=== PATIENT | female | born 1950 | race Caucasian/White ===

== ENCOUNTER → 2016-07-03 | Outpatient (CLI) | payer MEDICARE, OTHER ==
[2016-07-03 11:45] LABS: ABSOLUTE EOSINOPHILS # (AUTO) 0.1 10^3/uL (0.0-0.6); ABSOLUTE LYMPHOCYTES (AUTO) 1.5 10^3/uL (0.5-4.7); ABSOLUTE MONOCYTES (AUTO) 0.3 10^3/uL (0.1-1.4); ABSOLUTE NEUT (AUTO) 2.8 10^3/uL (1.7-8.2); BASOPHILS % (AUTO) 0.9 % (0-2); HEMATOCRIT 40.2 % (36.0-47.0); HEMOGLOBIN 13.8 g/dL (12.0-15.5); HGB HCT DIFFERENCE 1.2; LYMPHOCYTES % (AUTO) 31.4 % (13-45); MEAN CORPUSCULAR HEMOGLOBIN 30.8 pg (27.0-33.4); MEAN CORPUSCULAR HGB CONC 34.2 g/dL (32.0-36.0); MEAN CORPUSCULAR VOLUME 90 fl (80-97); MONOCYTES % (AUTO) 5.9 % (3-13); RED BLOOD COUNT 4.46 10^6/uL (3.72-5.28); RED CELL DISTRIBUTION WIDTH 13.4 % (11.5-14.0); SEGMENTED NEUTROPHILS % (AUTO) 59.8 % (42-78); WHITE BLOOD COUNT 4.8 10^3/uL (4.0-10.5)
[2016-07-03 12:07] LABS: ALANINE AMINOTRANSFERASE 17 U/L (9-52); ALBUMIN 3.7 g/dL (3.5-5.0); ALKALINE PHOSPHATASE 71 U/L (38-126); ANION GAP 10 (5-19); ASPARTATE AMINO TRANSFERASE 16 U/L (14-36); BILIRUBIN,TOTAL 0.3 mg/dL (0.2-1.3); BLOOD UREA NITROGEN 12 mg/dL (7-20); CALCIUM 9.4 mg/dL (8.4-10.2); CARBON DIOXIDE 30 mmol/L (22-30); CHLORIDE 100 mmol/L (98-107); CHOLESTEROL 197.71 mg/dL (0-200); CREATININE RESULT 0.79 mg/dL (0.52-1.25); Direct HDL 54 mg/dL (>40); GLUCOSE 84 mg/dL (75-110); POTASSIUM 4.8 mmol/L (3.6-5.0); SODIUM 139.5 mmol/L (137-145); TOTAL PROTEIN 5.9 g/dL (6.3-8.2); TRIGLYCERIDES 86 mg/dL (<150)
[2016-07-03 12:11] LABS: ALANINE AMINOTRANSFERASE 18 U/L (9-52); ALBUMIN 3.8 g/dL (3.5-5.0); ALKALINE PHOSPHATASE 71 U/L (38-126); ANION GAP 8 (5-19); ASPARTATE AMINO TRANSFERASE 16 U/L (14-36); BILIRUBIN,TOTAL 0.3 mg/dL (0.2-1.3); BLOOD UREA NITROGEN 12 mg/dL (7-20); CALCIUM 9.2 mg/dL (8.4-10.2); CARBON DIOXIDE 30 mmol/L (22-30); CHLORIDE 100 mmol/L (98-107); CREATINE KINASE 51 U/L (30-135); GLUCOSE 83 mg/dL (75-110); POTASSIUM 4.8 mmol/L (3.6-5.0); SODIUM 138.2 mmol/L (137-145)
[2016-07-03 12:30] LABS: DIRECT LDL 123 mg/dL (<100)
== END ==
LOC: OD 10:54
PROVIDERS: ATTEND Internal Medicine Nephrology
DX: I10 Essential (primary) hypertension (principal); E78.5 Hyperlipidemia, unspecified; G25.81 Restless legs syndrome
CPT/HCPCS: 36415; 80053; 80061; 82306; 82550; 82728; 83540; 83550; 85025

== ENCOUNTER → 2016-07-11 | Outpatient (CLI) | payer MEDICARE, OTHER ==
[2016-07-11 16:34] LABS: ABSOLUTE BASOPHILS # (AUTO) 0.1 10^3/uL (0.0-0.2); ABSOLUTE EOSINOPHILS # (AUTO) 0.1 10^3/uL (0.0-0.6); ABSOLUTE MONOCYTES (AUTO) 0.4 10^3/uL (0.1-1.4); ABSOLUTE NEUT (AUTO) 3.5 10^3/uL (1.7-8.2); EOSINOPHILS % (AUTO) 1.3 % (0-6); HEMATOCRIT 40.9 % (36.0-47.0); HEMOGLOBIN 13.1 g/dL (12.0-15.5); HGB HCT DIFFERENCE -1.6; LYMPHOCYTES % (AUTO) 33.3 % (13-45); MEAN CORPUSCULAR HEMOGLOBIN 29.8 pg (27.0-33.4); MEAN CORPUSCULAR HGB CONC 32.1 g/dL (32.0-36.0); MEAN CORPUSCULAR VOLUME 93 fl (80-97); MONOCYTES % (AUTO) 7.1 % (3-13); RED BLOOD COUNT 4.41 10^6/uL (3.72-5.28); RED CELL DISTRIBUTION WIDTH 13.5 % (11.5-14.0); SEGMENTED NEUTROPHILS % (AUTO) 57.3 % (42-78); WHITE BLOOD COUNT 6.1 10^3/uL (4.0-10.5)
[2016-07-11 16:53] LABS: ANION GAP 11 (5-19); BLOOD UREA NITROGEN 11 mg/dL (7-20); CARBON DIOXIDE 27 mmol/L (22-30); CHLORIDE 99 mmol/L (98-107); CREATININE RESULT 0.79 mg/dL (0.52-1.25); GLUCOSE 86 mg/dL (75-110); POTASSIUM 4.9 mmol/L (3.6-5.0)
[2016-07-11 18:04] LABS: APPEARANCE,URINE CLEAR; BILIRUBIN,URINE NEGATIVE (NEGATIVE); GLUCOSE, URINE NEGATIVE (NEGATIVE); KETONES,URINE NEGATIVE (NEGATIVE); LEUKOCYTE ESTERASE,URINE NEGATIVE (NEGATIVE); NITRITE,URINE NEGATIVE (NEGATIVE); PROTEIN,URINE NEGATIVE (NEGATIVE); URINE SPECIFIC GRAVITY 1.011; UROBILINOGEN,URINE NEGATIVE mg/dL (<2.0)
--- NOTE | 2016-07-11 19:00 | EKG REPORT ---
SEVERITY:- ABNORMAL ECG - SINUS RHYTHM RBBB AND LAFB PROBABLE LVH WITH SECONDARY REPOL ABNRM : Confirmed by: Miguel Cheema MD 11-Jul-2016 18:59:51
== END ==
LOC: OD 16:03
PROVIDERS: ATTEND Orthopaedic Surgery
DX: Z01.810 Encounter for preprocedural cardiovascular examination (principal); Z01.811 Encounter for preprocedural respiratory examination; Z01.818 Encounter for other preprocedural examination; Z79.899 Other long term (current) drug therapy; M19.011 Primary osteoarthritis, right shoulder
CPT/HCPCS: 36415; 71020; 80048; 81001; 85025; 93005; 93010

== ENCOUNTER → 2016-07-16 | Outpatient (CLI) | payer MEDICARE, OTHER ==
--- NOTE | 2016-07-16 16:12 | WOMENS IMAGING REPORT ---
EXAM DESCRIPTION: BILAT SCREENING MAMMO W/CAD COMPLETED DATE/TIME: 07/16/2016 11:52 am REASON FOR STUDY: Z12.31, ROUTINE SCREENING MAMMO Z12.31 ENCNTR SCREEN MAMMOGRAM FOR MALIGNANT NEOP LASM OF DANISH COMPARISON: Multiple since 2008 TECHNIQUE: Standard craniocaudal and mediolateral oblique views of each breast recorded using Outsmarta l acquisition. LIMITATIONS: None. FINDINGS: Findings present which are benign by mammographic criteria. No suspicious masses, calcifi cations or architectural distortion. On the right side, stereotactic biopsy clips are present. On t he left side, patient is post left skin sparing mastectomy and implant removal. Read with the assistance of CAD. .[facility] - R2 Cenova Version 1.3 .[facility] - R2 Cenova Version 1.3 .[facility] - R2 Cenova Version 2.4 .[facility] - R2 Cenova Version 2.4 .[facility] - R2 [facility] Version 9.2 Benign mammographic findings may include one or more of the following: Smooth masses, popcorn/rim/co arse calcifications, asymmetries, post-procedure changes, and lesions with long-standing stability. BREAST DENSITY: b. There are scattered areas of fibroglandular density. BIRAD: 2 BENIGN FINDING(S) RECOMMENDATION: ROUTINE SCREENING COMMENT: PATIENT NOTIFIED BY LETTER. The [employer] recommends an annual screening mammogram for women aged 40 years or over. Each patient will receive a reminder prior to the anniversary date of her mammogram. The [employer] (ACR) has developed recommendations for screening MRI of the breast s in certain patient populations, to be used in conjunction with mammography. Breast MRI surveillanc e may be appropriate for women with more than 20% lifetime risk of developing breast cancer as deter mined by genetic testing, significant family history of the disease, or history of mantle radiation f or Hodgkins Disease. ACR Practice Guidelines 2008. TECHNICAL DOCUMENTATION: FINDING NUMBER: (1) ASSESSMENT: (1) JOB ID: [id number] [employer]- All Rights Reserved
== END ==
LOC: WI 11:33
PROVIDERS: ATTEND Internal Medicine Nephrology
DX: Z12.31 Encounter for screening mammogram for malignant neoplasm of breast (principal); E78.5 Hyperlipidemia, unspecified; I10 Essential (primary) hypertension
CPT/HCPCS: 77067; G0202

== ENCOUNTER 2016-08-12 05:52 | Inpatient (IN) | payer MEDICARE, OTHER ==
[2016-08-01 10:48] LABS: APPEARANCE,URINE CLEAR; BILIRUBIN,URINE NEGATIVE (NEGATIVE); GLUCOSE, URINE NEGATIVE (NEGATIVE); KETONES,URINE NEGATIVE (NEGATIVE); LEUKOCYTE ESTERASE,URINE NEGATIVE (NEGATIVE); NITRITE,URINE NEGATIVE (NEGATIVE); PROTEIN,URINE NEGATIVE (NEGATIVE); URINE SPECIFIC GRAVITY 1.008; UROBILINOGEN,URINE NEGATIVE mg/dL (<2.0)
[2016-08-01 10:53] LABS: HEMATOCRIT 41.6 % (36.0-47.0); HGB HCT DIFFERENCE 0.4; MEAN CORPUSCULAR HEMOGLOBIN 30.6 pg (27.0-33.4); MEAN CORPUSCULAR HGB CONC 33.7 g/dL (32.0-36.0); MEAN CORPUSCULAR VOLUME 91 fl (80-97); RED BLOOD COUNT 4.58 10^6/uL (3.72-5.28); RED CELL DISTRIBUTION WIDTH 13.6 % (11.5-14.0); WHITE BLOOD COUNT 5.6 10^3/uL (4.0-10.5)
[2016-08-01 11:21] LABS: ANION GAP 11 (5-19); BLOOD UREA NITROGEN 8 mg/dL (7-20); CALCIUM 9.7 mg/dL (8.4-10.2); CARBON DIOXIDE 29 mmol/L (22-30); CHLORIDE 96 mmol/L (98-107); CREATININE RESULT 0.75 mg/dL (0.52-1.25); GLUCOSE 87 mg/dL (75-110); POTASSIUM 4.4 mmol/L (3.6-5.0); SODIUM 136.4 mmol/L (137-145)
[~2016-08-12 05:52] MED LIST: BUPIVACAINE INJ/PF LIPOSOME/PF 266 MG/20 ML SDV IJ PRN; CLINDAMYCIN 600 MG/D5W RTU 600 MG/50 ML RTUPB IV PRN; IBUPROFEN 800 MG in NORMAL SALINE 250 ML IV PRN; LANSOPRAZOLE 15 MG TAB.RAP.DR PO PRN; OXYCODONE HCL SR 10 MG TABLET PO PRN; SCOPOLAMINE HYDROBROMIDE 1.5 MG PATCH.TD72 TD PRN
[2016-08-12] MEDS ORDERED: VANCOMYCIN HCL 1,000 MG in DEXTROSE 5%-WATER 250 ML IV PRN (08:29)
[2016-08-12] MEDS ORDERED: SUCCINYLCHOLINE CHLORIDE INJ 200 MG/10 ML VIAL ONE (09:18)
[2016-08-12] MEDS ORDERED: ONDANSETRON HCL INJ/PF 4 MG/2 ML SDV ONE (09:18)
[2016-08-12] MEDS ORDERED: LIDOCAINE 2% INJ-PF (20 MG/ML) 10 ML AMPUL ONE (09:18)
[2016-08-12] MEDS ORDERED: DEXAMETHASONE SOD PHOSPHATE INJ 4 MG/1 ML VIAL ONE (09:18)
[2016-08-12] MEDS ORDERED: GLYCOPYRROLATE INJ 0.4 MG/2 ML VIAL ONE (09:18)
[2016-08-12] MEDS ORDERED: METOCLOPRAMIDE HCL INJ/PF 10 MG/2 ML SDV ONE (09:18)
[2016-08-12] MEDS ORDERED: BUPIVACAINE INJ/PF LIPOSOME/PF 266 MG/20 ML SDV ONE (09:21)
[2016-08-12] MEDS ORDERED: EPHEDRINE SULFATE INJ 50 MG/1 ML AMPULE ONE (09:44)
[2016-08-12] MEDS ORDERED: MIDAZOLAM 2 MG/2 ML INJ ONE (09:44)
[2016-08-12] MEDS ORDERED: FENTANYL CITRATE INJ/PF 250 MCG/5 ML AMPULE ONE (09:44)
[2016-08-12] MEDS ORDERED: DEXMEDETOMIDINE INJ 80 MCG/20 ML VIAL IV ONE (09:45)
[2016-08-12] MEDS ORDERED: PROPOFOL INJ 200 MG/20 ML VIAL IV ONE (09:45)
[2016-08-12] MEDS ORDERED: TRANEXAMIC ACID INJ/PF 1,000 MG/10 ML SDV IV ONE (10:29)
[2016-08-12] MEDS ORDERED: MEPERIDINE HCL/PF INJ 25 MG/1 ML DISP.SYRIN IV PRN (11:15)
[2016-08-12] MEDS ORDERED: MORPHINE SULFATE 10 MG/ML INJ IV PRN (11:15)
[2016-08-12] MEDS ORDERED: PROMETHAZINE HCL INJ 25 MG/1 ML VIAL IV PRN ×2 (11:15)
[2016-08-12] MEDS ORDERED: FENTANYL CITRATE INJ/PF 100 MCG/2 ML AMPUL IV PRN ×3 (11:15)
[2016-08-12] MEDS ORDERED: DIPHENHYDRAMINE HCL 50 MG/ML VIAL IV PRN (11:15)
[2016-08-12] MEDS ORDERED: OXYCODONE-ACETAMINOPHEN 5-325 MG TABLET PO PRN ×2 (11:15)
--- NOTE | 2016-08-12 12:00 | Operative Report ---
Operative Report DATE OF SURGERY: 08/12/16 PREOPERATIVE DIAGNOSIS: Right shoulder arthritis OPERATION: Right shoulder arthroplasty SURGEON: RUDDY HEART ANESTHESIA: GA TISSUE REMOVED OR ALTERED: Bone to pathology ESTIMATED BLOOD LOSS: 100 PROCEDURE: Implants used: Striker reunion 40 mm glenoid. Striker reunion size 11 humeral stem Striker reunion single radius humeral head size 44 with a 16 mm thickness. Procedure: With the patient beachchair position. The operating table the right upper extremity and forequarter were prepped and draped in a sterile fashion. A standard deltopectoral approach the shoulders taken. The cephalic vein is retracted laterally. The underlying pack insertion was taken down proximally 1 cm. The biceps tendon is tract proximally. The subscap was taken off the lesser tuberosity and tagged with a suture. Capsular rent is then continued proximally along the biceps tendon. The underlying shoulder joint is exposed. The proximal humeral resection was performed off a 11 mm reamer with 30 of retroversion. The glenoid is now exposed. Is prepared for 40 mm glenoid. The labrum was debrided. The chondral surfaces freshened using a cylindrical reamer. 4 peg holes are made with the appropriate jig. Subsequently a 40 mm polyethylene glenoid is demented into the glenoid. Following adequate curing the cement attention is now turned to the humerus. The humerus was prepared using a series of broaches until a #11 broach is seated. A trial reduction was performed with a 44 mm head, 16 mm thickness. This provides satisfactory soft tissue tension. The humeral trial was removed. The formal implant is then impacted into the humeral canal. The single radius humeral head is impacted into the trunnion. The shoulders reduced. It's irrigated. The capsule was repaired using interrupted fiber wire. The cutaneous tissue reapproximation up to Vicryl and skin kaycee. A sterile dressing and a shoulder mobilizer applied and the patient's returned to PACU in satisfactory condition.
[2016-08-12] MEDS ORDERED: FENTANYL CITRATE INJ/PF 100 MCG/2 ML AMPUL ONE (12:38)
[2016-08-12] MEDS ORDERED: RINGERS SOLUTION,LACTATED 1,000 ML IV PRN (13:28)
[2016-08-12] MEDS ORDERED: ONDANSETRON 4 MG TAB.RAPDIS PO PRN (13:29)
[2016-08-12] MEDS ORDERED: (PENDING PHARMACY ID) (Albuterol Sulfate [Proair Respiclick] 90 MCG) IH PRN (13:48)
[2016-08-12] MEDS ORDERED: ALBUTEROL SULFATE 0.083% NEB 2.5 MG/3 ML AMPUL NEB PRN (13:48)
[2016-08-12] MEDS ORDERED: BUTALB/ACETAMINOPHEN/CAFFEINE 1 TAB EACH PO PRN (13:48)
[2016-08-12] MEDS: OXYCODONE HCL IR 5 MG TABLET PO PRN ×2 (14:24→22:35)
[2016-08-12] MEDS ORDERED: INFLUENZA ADLT QUAD (36MOS+) 2016-17 VAC 0.5 ML SYR IM PRN (14:58)
[2016-08-12] MEDS ORDERED: ROPINIROLE HCL 2 MG TABLET PO SCH (18:00)
[2016-08-12] MEDS ORDERED: (PENDING PHARMACY ID) (Desloratadine [Clarinex] 5 MG) PO SCH (18:00)
[2016-08-12] MEDS ORDERED: (PENDING PHARMACY ID) (Rabeprazole Sodium [Aciphex] 20 MG) PO SCH (18:00)
[2016-08-12] MEDS ORDERED: COLESTIPOL PO SCH (18:00)
[2016-08-12] MEDS ORDERED: LORATADINE 10 MG TABLET PO SCH (18:00)
[2016-08-12] MEDS ORDERED: CITALOPRAM HYDROBROMIDE 20 MG TABLET PO SCH (18:00)
[2016-08-12] MEDS: HYDROXYCHLOROQUINE SULFATE 200 MG TABLET PO SCH (18:08)
[2016-08-12] MEDS: LANSOPRAZOLE 30 MG TAB.RAP.DR PO SCH (18:09)
[2016-08-12] MEDS: MORPHINE SULFATE 10 MG/ML INJ IV PRN (19:55)
[2016-08-12] MEDS ORDERED: CYCLOBENZAPRINE HCL 10 MG TABLET PO SCH (22:00)
[2016-08-12] MEDS ORDERED: (PENDING PHARMACY ID) (Cyclobenzaprine Hcl [Flexeril 5 Mg Tablet] 5 MG) PO SCH (22:00)
[2016-08-12] MEDS ORDERED: GABAPENTIN 300 MG CAPSULE PO SCH (22:00)
[2016-08-12] MEDS ORDERED: MONTELUKAST SODIUM 10 MG TABLET PO SCH (22:00)
[2016-08-12] MEDS ORDERED: TEMAZEPAM 15 MG CAPSULE PO SCH (22:00)
[2016-08-12] MEDS: FLUTICASONE/SALMETEROL DISKUS 500-50 MCG/DOSE IH SCH (22:22)
[2016-08-12] MEDS: FLUTICASONE NASAL SPRAY 50 MCG/SPRY 120 SPRAY/16 GM NASL SCH (22:22)
[2016-08-12] MEDS ORDERED: VANCOMYCIN HCL 1,000 MG in DEXTROSE 5%-WATER 250 ML IV ONE (23:00)
[2016-08-13] MEDS: MORPHINE SULFATE 10 MG/ML INJ IV PRN ×2 (02:29→07:41)
[2016-08-13] MEDS: OXYCODONE HCL IR 5 MG TABLET PO PRN ×2 (05:09→11:33)
[2016-08-13 06:36] LABS: HEMATOCRIT 32.8 % (36.0-47.0); HEMOGLOBIN 11.1 g/dL (12.0-15.5); HGB HCT DIFFERENCE 0.5; MEAN CORPUSCULAR HEMOGLOBIN 30.7 pg (27.0-33.4); MEAN CORPUSCULAR HGB CONC 33.9 g/dL (32.0-36.0); MEAN CORPUSCULAR VOLUME 91 fl (80-97); RED BLOOD COUNT 3.62 10^6/uL (3.72-5.28); RED CELL DISTRIBUTION WIDTH 13.4 % (11.5-14.0); WHITE BLOOD COUNT 8.2 10^3/uL (4.0-10.5)
[2016-08-13 07:00] LABS: ANION GAP 6 (5-19); BLOOD UREA NITROGEN 10 mg/dL (7-20); CALCIUM 8.9 mg/dL (8.4-10.2); CARBON DIOXIDE 26 mmol/L (22-30); CHLORIDE 96 mmol/L (98-107); CREATININE RESULT 0.64 mg/dL (0.52-1.25); GLUCOSE 100 mg/dL (75-110); POTASSIUM 4.3 mmol/L (3.6-5.0); SODIUM 128.1 mmol/L (137-145)
--- NOTE | 2016-08-13 07:02 | PDOC DISCHARGE SUMMARY ---
General - Admit/Disc Date/PCP Admission Date/Primary Care Provider: 08/12/16 08:01 SMOOTH GARCIA MD Discharge Date: 08/13/16 - Discharge Diagnosis (1) Arthritis of right shoulder region Summary: Patient is 66-year-old white female who presents with progressive right shoulder pain and dysfunction secondary shoulder arthritis. - Additional Information Resuscitation Status: Full Code Home Medications: Albuterol Sulfate [Albuterol Sulfate 2.5mg/3 mL] 2.5 mg IH Q6 PRN 07/30/16 Albuterol Sulfate [Proair Respiclick] 90 mcg IH ASDIR PRN 07/30/16 Butalb/Acetaminophen/Caffeine [Fioricet (50-325-40 mg) Tablet] 1 tab PO Q12 PRN 07/30/16 Cholecalciferol (Vitamin D3) [Vitamin D3 2000 unit Tablet] 2,000 unit PO QAM 01/06 Citalopram Hydrobromide [Celexa 20 mg Tablet] 20 mg PO QPM 07/30/16 Colestipol HCl [Colestid 5 gm Packet] 15 gm PO BID 07/30/16 Cyclobenzaprine HCl [Flexeril 5 mg Tablet] 5 mg PO QHS 07/30/16 Desloratadine [Clarinex] 5 mg PO QPM 07/30/16 Ezetimibe/Simvastatin [Vytorin 10-40 Mg Tablet] 1 each PO QAM 07/30/16 Ferrous Sulfate 65 mg PO QAM 07/30/16 Fluticasone Propionate [Flonase Nasal [place] 50 Mcg/[place] 16 gm] 1 spray NASL Q12 07/30/16 Fluticasone/Salmeterol [Advair 500-50 Diskus 28 Dose] 1 inh IH Q12H 07/30/16 Gabapentin [Neurontin] 600 mg PO QHS 07/30/16 Hydrocodone/Acetaminophen [Hydrocodon-Acetaminoph 7.5-325] 1 each PO Q6 PRN 01/06 Hydroxychloroquine Sulfate [Plaquenil 200 mg Tablet] 200 mg PO BID 07/30/16 Ibandronate Sodium [Boniva] 150 mg PO ASDIR 07/30/16 Lidocaine [Lidoderm 5% (700 mg) Transdermal Patch] 1 patch TP QPM PRN 07/30/16 Metoprolol Succinate [Toprol Xl] 50 - 100 mg PO QAM 07/30/16 Montelukast Sodium [Singulair 10 mg Tablet] 10 mg PO QPM 07/30/16 Rabeprazole Sodium [Aciphex] 20 mg PO BID 07/30/16 Ropinirole HCl [Requip 2 Mg Tablet] 2 mg PO QPM 07/30/16 Temazepam 15 mg PO QHS 07/30/16 History of Present Illness History of Present Illness: MIREAY TORRES is a 66 year old female with progressive right shoulder pain and dysfunction secondary osteoarthritis. Hospital Course Hospital Course: Patient's admitted through the operating room where she undergoes uncomplicated right shoulder arthroplasty. She was returned to floor in satisfactory condition. Pain control is reasonable. Dressing remains clean dry and intact. Neurovascular examination the upper extremities intact. Physical Exam Vital Signs: Temp Pulse Resp BP Pulse Ox 37.2 C 73 17 133/53 H 94 08/13/16 05:20 08/13/16 05:20 08/13/16 05:20 08/13/16 05:20 08/13/16 05:20 Intake & Output 08/12/16 08/13/16 08/14/16 06:59 06:59 06:59 Intake Total 1720 Output Total 750 Balance 970 General appearance: PRESENT: no acute distress Head exam: PRESENT: normocephalic Eye exam: PRESENT: EOMI Respiratory exam: PRESENT: unlabored Cardiovascular exam: PRESENT: RRR Pulses: PRESENT: +1 pedal pulses bilateral Extremities exam: PRESENT: other Neurological exam: PRESENT: alert - Right shoulder dressing clean dry and intact. Shoulder mobilizer in place. Distal neurovascular examination is intact., awake, oriented to person, oriented to place, oriented to time, oriented to situation, CN II-XII grossly intact. ABSENT: motor sensory deficit Results Laboratory Results: 08/13/16 05:50 08/12/16 08/13/16 08:37 05:50 WBC 8.2 RBC 3.62 L Hgb 11.1 L Hct 32.8 L MCV 91 MCH 30.7 MCHC 33.9 RDW 13.4 Plt Count 140 L Blood Type O POSITIVE Antibody Screen NEGATIVE Status: Imported from PACS Qualifiers PATEINT BEING DISCHARGED WITH ANY OF THE FOLLOWING DIAGNOSIS?: No VTE patient discharged on overlapping Therapy?: No Reason(s) for not prescribing Overlap Therapy:: Not indicated
[2016-08-13] MEDS: LANSOPRAZOLE 30 MG TAB.RAP.DR PO SCH (07:39)
[2016-08-13] MEDS ORDERED: METOPROLOL SUCCINATE 50 MG TAB.SR.24H PO SCH (08:00)
[2016-08-13] MEDS ORDERED: EZETIMIBE PO SCH (08:00)
[2016-08-13] MEDS ORDERED: SIMVASTATIN PO SCH (08:00)
[2016-08-13] MEDS ORDERED: FERROUS SULFATE 65 MG PO SCH (08:00)
[2016-08-13] MEDS ORDERED: (PENDING PHARMACY ID) (Cholecalciferol (Vitamin D3) [Vitamin D3 2000 Unit Tablet] 2,000 UN PO SCH (08:00)
[2016-08-13] MEDS: HYDROXYCHLOROQUINE SULFATE 200 MG TABLET PO SCH (09:02)
[2016-08-13] MEDS: FLUTICASONE/SALMETEROL DISKUS 500-50 MCG/DOSE IH SCH (09:03)
[2016-08-13] MEDS: FLUTICASONE NASAL SPRAY 50 MCG/SPRY 120 SPRAY/16 GM NASL SCH (09:03)
[2016-08-13] MEDS ORDERED: FERROUS SULFATE 325 MG TABLET PO SCH (10:00)
[2016-08-13] MEDS ORDERED: CHOLECALCIFEROL (D3) 1,000 UNIT TABLET PO SCH (10:00)
[2016-08-13 11:53] VITALS: BP 140/59
[2016-08-13] MEDS ORDERED: EZETIMIBE 10 MG TABLET PO SCH (22:00)
[2016-08-13] MEDS ORDERED: SIMVASTATIN 40 MG TABLET PO SCH (22:00)
== END 2016-08-13 11:59 | disposition home or self-care (01) | DRG 483 ==
LOC: INOR 08:01 → 4S 13:25
PROVIDERS: ADMIT Orthopaedic Surgery; ATTEND Orthopaedic Surgery
PROC: 0RRJ0JZ Replacement of Right Shoulder Joint with Synthetic Substitute, Open Approach (ICD-10-PCS; principal; 2016-08-12 10:00)
DX: M19.011 Primary osteoarthritis, right shoulder (principal); K58.9 Irritable bowel syndrome, unspecified; G47.00 Insomnia, unspecified; J45.909 Unspecified asthma, uncomplicated; F32.9 Major depressive disorder, single episode, unspecified; G43.909 Migraine, unspecified, not intractable, without status migrainosus; M48.00 Spinal stenosis, site unspecified; Z79.899 Other long term (current) drug therapy; Z96.649 Presence of unspecified artificial hip joint; Z90.12 Acquired absence of left breast and nipple; Z88.0 Allergy status to penicillin; Z83.3 Family history of diabetes mellitus; Z80.9 Family history of malignant neoplasm, unspecified; Z82.49 Family history of ischemic heart disease and other diseases of the circulatory system
CPT/HCPCS: 1630; 36415; 80048; 81001; 85027; 86850; 86900; 86901; 88304; 88311; 90686; C1776; C9290; J0330; J1100; J1741; J2250; J2270; J2405; J2704; J2765; J3010; J3370; J3490; J7050; J7060; L3650

== ENCOUNTER 2016-09-02 07:05 | Inpatient (IN) | payer MEDICARE, OTHER ==
[2016-09-02 07:20] LABS: ABSOLUTE BASOPHILS # (AUTO) 0.1 10^3/uL (0.0-0.2); ABSOLUTE LYMPHOCYTES (AUTO) 2.5 10^3/uL (0.5-4.7); ABSOLUTE MONOCYTES (AUTO) 1.7 10^3/uL (0.1-1.4); ABSOLUTE NEUT (AUTO) 12.7 10^3/uL (1.7-8.2); BASOPHILS % (AUTO) 0.6 % (0-2); EOSINOPHILS % (AUTO) 0.1 % (0-6); HEMATOCRIT 35.7 % (36.0-47.0); HEMOGLOBIN 11.6 g/dL (12.0-15.5); HGB HCT DIFFERENCE -0.9; LYMPHOCYTES % (AUTO) 14.6 % (13-45); MEAN CORPUSCULAR HEMOGLOBIN 30.2 pg (27.0-33.4); MEAN CORPUSCULAR HGB CONC 32.6 g/dL (32.0-36.0); MEAN CORPUSCULAR VOLUME 93 fl (80-97); MONOCYTES % (AUTO) 10.1 % (3-13); RED BLOOD COUNT 3.84 10^6/uL (3.72-5.28); RED CELL DISTRIBUTION WIDTH 13.8 % (11.5-14.0); SEGMENTED NEUTROPHILS % (AUTO) 74.6 % (42-78)
[2016-09-02 07:27] LABS: PROTHROMBIN TIME 12.2 SEC (11.4-15.4)
[2016-09-02 07:28] LABS: BLOOD UREA NITROGEN 8 mg/dL (7-20); CALCIUM 9.4 mg/dL (8.4-10.2); CREATININE RESULT 0.71 mg/dL (0.52-1.25); GLUCOSE 288 mg/dL (75-110)
[2016-09-02 07:29] LABS: ALANINE AMINOTRANSFERASE 30 U/L (9-52); ALBUMIN 3.6 g/dL (3.5-5.0); ALKALINE PHOSPHATASE 143 U/L (38-126); ANION GAP 14 (5-19); ASPARTATE AMINO TRANSFERASE 27 U/L (14-36); BILIRUBIN,TOTAL 0.4 mg/dL (0.2-1.3); CARBON DIOXIDE 21 mmol/L (22-30); CHLORIDE 102 mmol/L (98-107); CREATINE KINASE 134 U/L (30-135); POTASSIUM 4.3 mmol/L (3.6-5.0); SODIUM 136.8 mmol/L (137-145)
[2016-09-02 07:40] LABS: CREATINE KINASE MB 6.2 ng/mL (<4.55)
[2016-09-02 07:41] LABS: TROPONIN I 0.294 ng/mL
[2016-09-02 07:44] LABS: ARTERIAL BLOOD BASE EXCESS -6.2 mmol/L; ARTERIAL BLOOD O2 SATURATION 97.5 % (94-98)
[2016-09-02] MEDS ORDERED: FUROSEMIDE INJ/PF 40 MG/4 ML SDV IV ONE (08:27)
--- NOTE | 2016-09-02 08:55 | ER Document Report ---
ED General - General Chief Complaint: Shortness Of Breath Stated Complaint: DIFFICULTY BREATHING Time seen by provider: 08:00 Mode of Arrival: Medic Information source: Patient, Emergency Med Personnel TRAVEL OUTSIDE OF THE [place] IN LAST 30 DAYS: No - HPI Associated symptoms: Body/muscle aches Notes: Patient presents with report of cough congestion for the last 5 days with a temperature maximum 99 with progressive dyspnea and wheezing that did not respond to her home nebulizer treatments. Patient reports cough is productive of yellowish phlegm. Patient reports orthopnea and dyspnea on exertion. She is not on home oxygen. Report of right shoulder surgery 3 weeks ago without complication. EMS picked up the patient and found her to have an O2 sat 60s, and she responded to DuoNeb and albuterol nebs and CPAP and IV magnesium. O2 sat 100% after treatments, and oxygen level weaned down following this. Patient does have a history of COPD and reports previous steroids in the past. - Related Data Allergies/Adverse Reactions: Penicillins Adverse Reaction (Verified 09/02/16 08:22) Lethargy Past Medical History - General Information source: Patient - Social History Smoking Status: Unknown if Ever Smoked Cigarette use (# per day): Yes - patient just quit smoking one week ago Chew tobacco use (# tins/day): No Smoking Education Provided: Yes Frequency of alcohol use: None Drug Abuse: None Lives with: Alone Family History: None Patient has suicidal ideation: No Patient has homicidal ideation: No - Past Medical History Cardiac Medical History: Reports: Hx Hypercholesterolemia - takes med, Hx Hypertension - takes med Denies: Hx Atrial Fibrillation, Hx Congestive Heart Failure, Hx Coronary Artery Disease, Hx Heart Attack, Hx Peripheral Vascular Disease, Hx Pulmonary Embolism, Hx Heart Murmur Pulmonary Medical History: Reports: Hx Asthma, Hx Bronchitis - yearly, Hx COPD, Hx Pneumonia - several times, Hx Sleep Apnea - uses CPAP Denies: Hx Respiratory Failure, Hx Tuberculosis Neurological Medical History: Denies: Hx Cerebrovascular Accident, Hx Seizures Endocrine Medical History: Denies: Hx Graves' Disease, Hx Hyperthyroidism, Hx Hypothyroidism Renal/ Medical History: Reports: Hx Ovarian Cysts. Denies: Hx End Stage Renal Disease, Hx Kidney Stones, Hx Peritoneal Dialysis, Hx Pelvic Inflammatory Disease Malignancy Medical History: Reports: Hx Breast Cancer - left breast/Mastectomy. Denies: Hx Cervical Cancer, Hx Leukemia, Hx Lung Cancer, Hx Ovarian Cancer GI Medical History: Reports: Hx Gastroesophageal Reflux Disease - takes med, Hx Irritable Bowel, Hx Ulcer. Denies: Hx Crohn's Disease, Hx Hiatal Hernia, Hx Liver Failure Musculoskeltal Medical History: Reports Hx Arthritis, Reports Hx Fibromyalgia, Denies Hx Multiple Sclerosis, Denies Hx Muscular Dystrophy Psychiatric Medical History: Reports: Hx Depression - mild Denies: Hx Bipolar Disorder, Hx Dementia, Hx Post Traumatic Stress Disorder, Hx Schizophrenia Traumatic Medical History: Reports: Hx Fractures - left shoulder, right elbow x2 , left wrist, toes Infectious Medical History: Denies: Hx HIV Past Surgical History: Reports: Hx Appendectomy, Hx Cholecystectomy, Hx Hysterectomy, Hx Mastectomy - left, Hx Tonsillectomy, Hx Tubal Ligation. Denies : Hx Bowel Surgery, Hx Section, Hx Colostomy, Hx Coronary Artery Bypass Graft, Hx Gastric Bypass Surgery, Hx Herniorrhaphy, Hx Pacemaker - Immunizations Hx Diphtheria, Pertussis, Tetanus Vaccination: Yes Hx Pneumococcal Vaccination: 07/24/04 Review of Systems - Review of Systems Notes: REVIEW OF SYSTEMS: CONSTITUTIONAL : Questions fevers but reports only temp 99., EENT: Denies eye, ear, throat, or mouth pain or symptoms. Minor nasal congestion. Denies throat, tongue, or mouth swelling or difficulty swallowing. CARDIOVASCULAR: Patient reports pleuritic chest pain. Denies palpitations or racing or irregular heart beat. Denies ankle edema. RESPIRATORY: Patient reports cough productive of some yellowish phlegm with associated dyspnea, orthopnea and wheezing. GASTROINTESTINAL: Denies abdominal pain or distention. Denies nausea, vomiting , or diarrhea. Denies blood in vomitus, stools, or per rectum. Denies black, tarry stools. Denies constipation. GENITOURINARY: Denies difficulty urinating, painful urination, burning, frequency, blood in urine, or discharge. FEMALE GENITOURINARY: Denies vaginal bleeding, heavy or abnormal periods, irregular periods. Denies vaginal discharge or odor. MUSCULOSKELETAL: Denies back or neck pain or stiffness. Denies joint pain or swelling. No significant pain or swelling in the right upper extremity from her shoulder surgery 3 weeks ago. SKIN: Denies rash, lesions or sores. HEMATOLOGIC : Denies easy bruising or bleeding. LYMPHATIC: Denies swollen, enlarged glands. NEUROLOGICAL: Denies confusion or altered mental status. Denies passing out or loss of consciousness. Denies dizziness or lightheadedness. Denies headache. Denies weakness or paralysis or loss of use of either side. Denies problems with gait or speech. Denies sensory loss, numbness, or tingling. Denies seizures. PSYCHIATRIC: Denies anxiety or stress. Denies depression, suicidal ideation, or homicidal ideation. ALL OTHER SYSTEMS REVIEWED AND NEGATIVE. Dictation was performed using i[employer] voice recognition software -: Yes All other systems reviewed and negative Physical Exam - Vital signs Vitals: Pulse Ox 96 09/02/16 07:06 - Notes Notes: PHYSICAL EXAMINATION: GENERAL: Obvious respiratory distress HEAD: Atraumatic, normocephalic. EYES: Pupils equal round and reactive to light, extraocular movements intact, conjunctiva are normal. ENT: Nares patent, oropharynx clear without exudates. Moist mucous membranes. NECK: Normal range of motion, supple without lymphadenopathy. JVD is noted, but the patient is on CPAP at the time. LUNGS: Coarse breath sounds with scant Rales and diminished breath sounds throughout both bases. Some wheezes noted. HEART: Tachycardic rate of 153 with a 1/6 systolic ejection murmur best auscultated over the apex. ABDOMEN: Soft, nontender, nondistended abdomen. No guarding, no rebound. No masses appreciated. Female : deferred Musculoskeletal: Normal range of motion, no pitting or edema. No cyanosis. Patient has surgical site right upper extremity shoulder which appears to be healing well and there is no distal edema or swelling or other abnormality noted. NEUROLOGICAL: Cranial nerves grossly intact. Normal speech, normal gait. Normal sensory, motor exams PSYCH: Normal mood, normal affect. SKIN: Warm, Dry, normal turgor, no rashes or lesions noted. Course - Re-evaluation Re-evalutation: 09/02/16 09:01 Repeat evaluation, patient still reports mild chest pain only with cough. D- dimer is elevated, and BNP level is elevated. No obvious STEMI noted on EKG. There are elevations of cardiac enzymes. CTA chest is ordered and 40 mg of IV Lasix. Patient's tachycardia gradually resolved down to heart rate of 116. 09/02/16 09:05 CTA of the chest is negative for PE, but does show a right-sided pneumonia. Patient had adequate diuresis. After blood cultures, patient is given IV Levaquin. Discussion was undertaken with Dr. Brown, and he agreed to see and evaluate the patient further for possible admission. 09/02/16 14:17 Patient had a recurrence of some dyspnea. On repeat exam there was mild wheezing. She still reports the right chest pain associated with cough. She was given additional DuoNeb treatment. Patient has been taking regular hydrocodone 7.5 mg tablets for her postsurgical pain from her right shoulder replacement. She is given 4 mg of morphine. Repeat EKG as interpreted by Dr. Colon showed sinus tachycardia heart rate of 107. There was no gross evidence for acute WI or ischemia noted. - Vital Signs Vital signs: Temp Pulse Resp BP Pulse Ox 98.1 F 15 110/64 97 09/02/16 13:50 09/02/16 15:00 09/02/16 13:00 09/02/16 15:00 - Laboratory Result Diagrams: 09/02/16 07:08 09/02/16 07:08 Laboratory results interpreted by me: 09/02/16 09/02/16 09/02/16 07:08 07:08 07:08 WBC 17.0 H Hgb 11.6 L Hct 35.7 L Absolute Neutrophils 12.7 H Absolute Monocytes 1.7 H D-Dimer Carbonic Acid ABG pH ABG pCO2 ABG pO2 Sodium 136.8 L Carbon Dioxide 21 L Glucose 288 H Lactic Acid Alkaline Phosphatase 143 H CK-MB (CK-2) 6.20 H NT-Pro-B Natriuret Pep 2920 H Total Protein 6.0 L Urine Protein Urine Glucose (UA) Urine Blood 09/02/16 09/02/16 09/02/16 07:08 07:08 07:23 WBC Hgb Hct Absolute Neutrophils Absolute Monocytes D-Dimer 1.91 H Carbonic Acid 1.61 H ABG pH 7.23 L ABG pCO2 53.4 H ABG pO2 117.5 H Sodium Carbon Dioxide Glucose Lactic Acid 3.6 H Alkaline Phosphatase CK-MB (CK-2) NT-Pro-B Natriuret Pep Total Protein Urine Protein Urine Glucose (UA) Urine Blood 09/02/16 09:30 WBC Hgb Hct Absolute Neutrophils Absolute Monocytes D-Dimer Carbonic Acid ABG pH ABG pCO2 ABG pO2 Sodium Carbon Dioxide Glucose Lactic Acid Alkaline Phosphatase CK-MB (CK-2) NT-Pro-B Natriuret Pep Total Protein Urine Protein 100 H Urine Glucose (UA) 50 H Urine Blood SMALL H - EKG Interpretation by Me EKG shows normal: Sinus rhythm Rate: Tachycardia When compared to previous EKG there are: Changes noted Additional EKG results interpreted by me: 09/02/16 09:04 EKG as interpreted by me showed sinus tachycardia heart rate of 153 with right bundle branch block and left anterior fascicular block and secondary rate related changes. There is no gross evidence for acute WI or obvious ischemia. There is no other significant change versus previous EKG from 07/11/16 which showed a sinus rhythm of 51. Critical Care Note - Critical Care Note Total time excluding time spent on procedures (mins): 47 Discharge - Discharge Clinical Impression: COPD with acute exacerbation, Hypoxia Pneumonia Qualifiers: Pneumonia type: due to unspecified organism Laterality: right Lung location: unspecified part of lung Qualified Code(s): J18.9 - Pneumonia, unspecified organism Clinical Impression: (Ruled Out): Asphyxiation by strangulation Condition: Fair Disposition: ADMITTED INPATIENT Admitting Provider: Hospitalist Unit Admitted: Telemetry Referrals: SMOOTH GARCIA MD [Primary Care Provider] - Follow up as needed
[2016-09-02] MEDS ORDERED: IPRATROPIUM/ALBUTEROL 0.5-2.5 MG/3 ML AMPUL NEB ONE (09:28)
[2016-09-02 09:55] LABS: APPEARANCE,URINE CLOUDY; BILIRUBIN,URINE NEGATIVE (NEGATIVE); GLUCOSE, URINE 50 mg/dL (NEGATIVE); KETONES,URINE NEGATIVE (NEGATIVE); LEUKOCYTE ESTERASE,URINE NEGATIVE (NEGATIVE); NITRITE,URINE NEGATIVE (NEGATIVE); PROTEIN,URINE 100 mg/dL (NEGATIVE); URINE SPECIFIC GRAVITY 1.051; UROBILINOGEN,URINE NEGATIVE mg/dL (<2.0)
[2016-09-02] MEDS ORDERED: LEVOFLOXACIN 750 MG/D5W RTU 150 ML IV ONE (10:11)
--- NOTE | 2016-09-02 13:46 | EKG REPORT ---
SEVERITY:- ABNORMAL ECG - SINUS TACHYCARDIA RBBB AND LAFB PROBABLE LVH WITH SECONDARY REPOL ABNRM : Confirmed by: Darrell Mantilla 02-Sep-2016 13:46:29
[2016-09-02] MEDS ORDERED: MORPHINE SULFATE 10 MG/ML INJ IV ONE (14:12)
[2016-09-02] MEDS ORDERED: LEVALBUTEROL HCL NEB 1.25 MG/3 ML AMPUL NEB PRN (14:33)
[2016-09-02] MEDS ORDERED: METHYLPREDNISOLONE INJ 40 MG/1 ML SDV IV SCH (14:45)
--- NOTE | 2016-09-02 15:06 | PDOC H&P ---
History of Present Illness Admission Date/PCP: SMOOTH GARCIA MD Patient complains of: Shortness of breath History of Present Illness: MIREYA TORRES is a 66 year old female, with a COPD, obstructive sleep apnea, hypertension presents to the hospital because of shortness of breath of 5 days' duration. Patient had a shoulder surgery 3 weeks ago in the hospital. Patient reportedly that she was put to sleep during the procedure. 5 days ago she started to develop cough and shortness of breath, with associated wheezing, sweating, and low-grade fever. There is pleurisy on the right. There is no nausea or vomiting. She had an episode of diarrhea. Cough is productive of greenish phlegm. She is taking her inhalers according partial relief of symptoms and earlier today the symptoms got worse. Patient denies any dizziness lightheadedness or syncope. No left-sided chest pain. In the emergency room troponin was elevated, CT scan of the chest revealed infiltrate on the right, WBC was elevated. Patient was given intravenous fluids, antibiotics and was referred for admission. No history of coronary artery disease. Past Medical History Cardiac Medical History: Reports: Hyperlipidema - takes med, Hypertension - takes med Denies: Atrial Fibrillation, Congestive Heart Failure, Coronary Artery Disease, Myocardial Infarction, Peripheral Vascular Disease, Pulmonary Embolism , Heart Murmur Pulmonary Medical History: Reports: Asthma, Bronchitis - yearly, Chronic Obstructive Pulmonary Disease (COPD), Pneumonia - several times, Sleep Apnea - uses CPAP Denies: Respiratory Failure, Tuberculosis Neurological Medical History: Reports: Migraine Denies: Seizures Endocrine Medical History: Denies: Hyperthyroidism, Hypothyroidism Renal/ Medical History: Denies: End Stage Renal Disease Malignancy Medical History: Reports: Breast Cancer - left breast/Mastectomy Denies: Cervical Cancer, Leukemia, Lung Cancer, Ovarian Cancer GI Medical History: Reports: Gastroesophageal Reflux Disease - takes med, Other - Irritable bowel syndrome Denies: Crohn's Disease, Hiatal Hernia Musculoskeltal Medical History: Reports: Arthritis, Fibromyalgia Psychiatric Medical History: Reports: Depression - mild Denies: Bipolar Disorder, Dementia, Post Traumatic Stress Disorder Hematology: Reports: Anemia - blood transfusion with back surgery Denies: Hemophilia, Sickle Cell Disease Infectious Medical History: Denies: HIV Past Surgical History Past Surgical History: Reports: Appendectomy, Cholecystectomy, Hysterectomy, Mastectomy - left, Orthopedic Surgery - Recent right shoulder surgery, Tonsillectomy, Tubal Ligation Denies: Amputation, Section, Colostomy, Coronary Artery Bypass Graft , Gastric Bypass Surgery, Herniorrhaphy, Pacemaker Social History Information Source: Patient Lives with: Alone Smoking Status: Current Every Day Smoker Frequency of Alcohol Use: Occasional Hx Recreational Drug Use: No Drugs: None Hx Prescription Drug Abuse: No Family History Family History: CAD, DM, Malignancy Parental Family History Reviewed: Yes Children Family History Reviewed: Yes Sibling(s) Family History Reviewed.: Yes Medication/Allergy Home Medications: Albuterol Sulfate [Albuterol Sulfate 2.5mg/3 mL] 2.5 mg IH Q6 PRN 07/30/16 Albuterol Sulfate [Proair Respiclick] 90 mcg IH ASDIR PRN 07/30/16 Butalb/Acetaminophen/Caffeine [Fioricet (50-325-40 mg) Tablet] 1 tab PO Q12 PRN 07/30/16 Cholecalciferol (Vitamin D3) [Vitamin D3 2000 unit Tablet] 2,000 unit PO QAM 01/06 Citalopram Hydrobromide [Celexa 20 mg Tablet] 20 mg PO QPM 07/30/16 Colestipol HCl [Colestid 5 gm Packet] 15 gm PO BID 07/30/16 Cyclobenzaprine HCl [Flexeril 5 mg Tablet] 5 mg PO QHS 07/30/16 Desloratadine [Clarinex] 5 mg PO QPM 07/30/16 Ezetimibe/Simvastatin [Vytorin 10-40 mg Tablet] 1 each PO QAM 07/30/16 Ferrous Sulfate 65 mg PO QAM 07/30/16 Fluticasone Propionate [Flonase Nasal Wedron 50 Mcg/Wedron 16 gm] 1 spray NASL Q12 07/30/16 Fluticasone/Salmeterol [Advair 500-50 Diskus 28 Dose] 1 inh IH Q12H 07/30/16 Gabapentin [Neurontin] 600 mg PO QHS 07/30/16 Hydrocodone/Acetaminophen [Hydrocodon-Acetaminoph 7.5-325] 1 each PO Q6 PRN 01/06 Hydroxychloroquine Sulfate [Plaquenil 200 mg Tablet] 200 mg PO BID 07/30/16 Ibandronate Sodium [Boniva] 150 mg PO ASDIR 07/30/16 Lidocaine [Lidoderm 5% (700 mg) Transdermal Patch] 1 patch TP QPM PRN 07/30/16 Metoprolol Succinate [Toprol Xl] 50 - 100 mg PO QAM 07/30/16 Montelukast Sodium [Singulair 10 mg Tablet] 10 mg PO QPM 07/30/16 Rabeprazole Sodium [Aciphex] 20 mg PO BID 07/30/16 Ropinirole HCl [Requip 2 mg Tablet] 2 mg PO QPM 07/30/16 Temazepam 15 mg PO QHS 07/30/16 Ondansetron [Zofran Odt 4 mg Tablet] 4 mg PO Q6HP PRN #0 tab.rapdis 08/13/16 Allergies/Adverse Reactions: Penicillins Adverse Reaction (Verified 09/02/16 08:22) Lethargy Review of Systems Constitutional: PRESENT: chills, fever(s), weakness - Generalized. ABSENT: headache(s), night sweats, weight gain, weight loss Eyes: ABSENT: visual disturbances Ears: ABSENT: hearing changes Nose, Mouth, and Throat: ABSENT: mouth pain, sore throat Cardiovascular: PRESENT: chest pain - Right-sided, dyspnea on exertion. ABSENT : edema, orthropnea, palpitations Respiratory: PRESENT: cough, dyspnea, sputum - Greenish phlegm. ABSENT: hemoptysis Gastrointestinal: PRESENT: diarrhea - One episode. ABSENT: abdominal pain, constipation, hematemesis, hematochezia, melena, nausea, vomiting Genitourinary: ABSENT: difficulty urinating, dysuria, hematuria Musculoskeletal: ABSENT: joint swelling Integumentary: ABSENT: pruritus, rash, wounds Neurological: ABSENT: abnormal gait, abnormal speech, confusion, dizziness, focal weakness, syncope Psychiatric: ABSENT: anxiety, depression, homidical ideation, suicidal ideation Endocrine: ABSENT: cold intolerance, heat intolerance, polydipsia, polyuria Hematologic/Lymphatic: ABSENT: easy bleeding, easy bruising Physical Exam Vital Signs: Temp Pulse Resp BP Pulse Ox 98.9 F 14 110/64 98 09/02/16 07:59 09/02/16 13:01 09/02/16 13:00 09/02/16 13:01 Intake & Output 09/01/16 09/02/16 09/03/16 06:59 06:59 06:59 Weight 53.977 kg General appearance: PRESENT: no acute distress, cooperative, thin Head exam: PRESENT: atraumatic, normocephalic Eye exam: PRESENT: conjunctiva pink, EOMI, PERRLA. ABSENT: scleral icterus Ear exam: PRESENT: normal external ear exam. ABSENT: drainage Mouth exam: PRESENT: moist, tongue midline, other - Oral thrush Throat exam: ABSENT: post pharyngeal erythema, tonsillar erythema, tonsillar exudate Neck exam: ABSENT: carotid bruit, JVD, lymphadenopathy, thyromegaly Respiratory exam: PRESENT: rales - Scattered bilateral but more on the right, rhonchi, unlabored, wheezes - Mild expiratory Cardiovascular exam: PRESENT: RRR, +S1, +S2, tachycardia. ABSENT: diastolic murmur, gallop, rubs, systolic murmur Pulses: PRESENT: normal dorsalis pedis pul Vascular exam: PRESENT: normal capillary refill GI/Abdominal exam: PRESENT: normal bowel sounds, soft. ABSENT: distended, guarding, mass, organolmegaly, rebound, tenderness Rectal exam: PRESENT: deferred Extremities exam: PRESENT: full ROM, other - Right shoulder stitches and wound which is clean without any evidence of cellulitis. ABSENT: calf tenderness, clubbing, pedal edema Neurological exam: PRESENT: alert, awake, oriented to person, oriented to place , oriented to time, oriented to situation Psychiatric exam: PRESENT: appropriate affect, normal mood. ABSENT: homicidal ideation, suicidal ideation Skin exam: PRESENT: dry, intact, warm. ABSENT: cyanosis, rash Results Laboratory Results: 09/02/16 07:08 09/02/16 07:08 09/02/16 09/02/16 09/02/16 07:08 07:08 07:08 WBC 17.0 H RBC 3.84 Hgb 11.6 L Hct 35.7 L MCV 93 MCH 30.2 MCHC 32.6 RDW 13.8 Plt Count 360 Seg Neutrophils % 74.6 Lymphocytes % 14.6 Monocytes % 10.1 Eosinophils % 0.1 Basophils % 0.6 Absolute Neutrophils 12.7 H Absolute Lymphocytes 2.5 Absolute Monocytes 1.7 H Absolute Eosinophils 0.0 Absolute Basophils 0.1 Carbonic Acid HCO3/H2CO3 Ratio ABG pH ABG pCO2 ABG pO2 ABG HCO3 ABG O2 Saturation ABG Base Excess FiO2 Sodium 136.8 L Potassium 4.3 Chloride 102 Carbon Dioxide 21 L Anion Gap 14 BUN 8 Creatinine 0.71 Est GFR ( Amer) > 60 Est GFR (Non-Af Amer) > 60 Glucose 288 H Lactic Acid Calcium 9.4 Magnesium 2.2 Total Bilirubin 0.4 AST 27 ALT 30 Alkaline Phosphatase 143 H Total Protein 6.0 L Albumin 3.6 Urine Color Urine Appearance Urine pH Ur Specific [place] Urine Protein Urine Glucose (UA) Urine Ketones Urine Blood Urine Nitrite Ur Leukocyte Esterase Urine WBC (Auto) Urine RBC (Auto) 09/02/16 09/02/16 09/02/16 07:08 07:23 09:30 WBC RBC Hgb Hct MCV MCH MCHC RDW Plt Count Seg Neutrophils % Lymphocytes % Monocytes % Eosinophils % Basophils % Absolute Neutrophils Absolute Lymphocytes Absolute Monocytes Absolute Eosinophils Absolute Basophils Carbonic Acid 1.61 H HCO3/H2CO3 Ratio 13:1 ABG pH 7.23 L ABG pCO2 53.4 H ABG pO2 117.5 H ABG HCO3 21.7 ABG O2 Saturation 97.5 ABG Base Excess -6.2 FiO2 40% Sodium Potassium Chloride Carbon Dioxide Anion Gap BUN Creatinine Est GFR ( Amer) Est GFR (Non-Af Amer) Glucose Lactic Acid 3.6 H Calcium Magnesium Total Bilirubin AST ALT Alkaline Phosphatase Total Protein Albumin Urine Color YELLOW Urine Appearance CLOUDY Urine pH 6.0 Ur Specific [place] 1.051 Urine Protein 100 H Urine Glucose (UA) 50 H Urine Ketones NEGATIVE Urine Blood SMALL H Urine Nitrite NEGATIVE Ur Leukocyte Esterase NEGATIVE Urine WBC (Auto) 39 Urine RBC (Auto) 16 09/02/16 09/02/16 09/02/16 07:08 07:08 10:42 Creatine Kinase 134 CK-MB (CK-2) 6.20 H Troponin I 0.294 0.423 NT-Pro-B Natriuret Pep 2920 H Impressions: Chest X-Ray 09/02/16 07:08 IMPRESSION: Blunting of the left costophrenic angle which could represent pleural reaction or a tiny effusion. Visualized lung bills are free of active infiltrates. Other findings as noted above Chest/Abdomen CTA 09/02/16 08:27 IMPRESSION: 1. Right middle lobe and lingular infiltrate consistent with pneumonia. 2. Right hilar adenopathy. This could be reactive or neoplastic. Further evaluation with bronchoscopy or PET imaging may be beneficial. 3. No pulmonary emboli. Assessment & Plan - Diagnosis (1) Pneumonia Qualifiers: Pneumonia type: due to unspecified organism Laterality: right Lung location: unspecified part of lung Qualified Code(s): J18.9 - Pneumonia, unspecified organism Is this a current diagnosis for this admission?: Yes (2) COPD with acute exacerbation Is this a current diagnosis for this admission?: Yes (3) Sepsis Qualifiers: Sepsis type: sepsis due to unspecified organism Qualified Code(s): A41.9 - Sepsis, unspecified organism Is this a current diagnosis for this admission?: Yes (4) Hyperglycemia Is this a current diagnosis for this admission?: Yes (5) Elevated troponin Is this a current diagnosis for this admission?: Yes (6) Oral thrush Is this a current diagnosis for this admission?: Yes (7) Hypertension Qualifiers: Hypertension type: essential hypertension Qualified Code(s): I10 - Essential (primary) hypertension (8) Obstructive sleep apnea Is this a current diagnosis for this admission?: Yes (9) Irritable bowel syndrome Qualifiers: Irritable bowel syndrome type: unspecified Qualified Code(s): K58.9 - Irritable bowel syndrome without diarrhea Is this a current diagnosis for this admission?: Yes (10) Hyperlipidemia Qualifiers: Hyperlipidemia type: unspecified Qualified Code(s): E78.5 - Hyperlipidemia, unspecified Is this a current diagnosis for this admission?: Yes (11) Gastritis Qualifiers: Gastritis type: unspecified gastritis Chronicity: unspecified Gastritis bleeding: presence of bleeding unspecified Qualified Code(s): K29.70 - Gastritis, unspecified, without bleeding Is this a current diagnosis for this admission?: Yes (12) Depression Qualifiers: Depression Type: unspecified Qualified Code(s): F32.9 - Major depressive disorder, single episode, unspecified Is this a current diagnosis for this admission?: Yes - Time Time Spent: 50 to 70 Minutes - Inpatient Certification Based on my medical assessment, after consideration of the patient's comorbidities, presenting symptoms, or acuity I expect that the services needed warrant INPATIENT care.: Yes I certify that my determination is in accordance with my understanding of Medicare's requirements for reasonable and necessary INPATIENT services [42 CFR 412.3e].: Yes Medical Necessity: Significant Comorbidiites Make Outpatient Treatment Too Risky , Need Close Monitoring Due to Risk of Patient Decompensation, Need For IV Fluids, Need for Nebulizer Therapy and Monitoring of Response, Need for IV Antibiotics Post Hospital Care: 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 We will consult cardiology for the abnormal troponins. Elevation likely secondary to sepsis brought about by toxemia. In the meantime I'll put the patient on aspirin and Plavix, obtain cultures of the sputum and blood, begin intravenous antibiotics to cover for healthcare associated pneumonia. Intravenous steroids, [id number] bronchodilators will be given as well. We will give Lovenox for DVT prophylaxis. Supplemental oxygen will be placed. We will give Mycelex for the thrush. We will obtain hemoglobin A1c. Further testing depends and initial evaluation as outlined above.
[2016-09-02] MEDS ORDERED: ASPIRIN 81 MG TABLET, CHEWABLE PO ONE (15:30)
[2016-09-02] MEDS ORDERED: CLOPIDOGREL BISULFATE 75 MG TABLET PO ONE (15:30)
[2016-09-02] MEDS: IMIPENEM/CILASTATIN SODIUM INJ 500 MG VIAL IV SCH (15:47)
[2016-09-02] MEDS: NORMAL SALINE 1000 ML 1,000 ML IV PRN (15:47)
[2016-09-02] MEDS ORDERED: METOPROLOL SUCCINATE 50 MG TAB.SR.24H PO ONE (16:00)
[2016-09-02] MEDS: CLOTRIMAZOLE 10 MG TROCHE PO SCH ×2 (16:26→22:53)
[2016-09-02] MEDS ORDERED: ONDANSETRON HCL INJ/PF 4 MG/2 ML SDV ONE (17:26)
[2016-09-02] MEDS ORDERED: LORAZEPAM INJ 2 MG/1 ML VIAL ONE (17:27)
[2016-09-02] MEDS: ACETAMINOPHEN 325 MG TABLET PO PRN (17:30)
[2016-09-02] MEDS ORDERED: ONDANSETRON HCL INJ/PF 4 MG/2 ML SDV IV PRN (17:32)
[2016-09-02] MEDS: HYDROCODONE/ACETAMINOPHEN 7.5-325 MG TABLET PO PRN (17:39)
[2016-09-02] MEDS ORDERED: COLESTIPOL PO SCH (18:00)
[2016-09-02] MEDS: HYDROXYCHLOROQUINE SULFATE 200 MG TABLET PO SCH (18:36)
[2016-09-02] MEDS: METHYLPREDNISOLONE INJ 125 MG/2 ML SDV IV SCH (18:36)
[2016-09-02] MEDS: ROPINIROLE HCL 2 MG TABLET PO SCH (18:37)
[2016-09-02] MEDS: CITALOPRAM HYDROBROMIDE 20 MG TABLET PO SCH (18:37)
[2016-09-02] MEDS: IPRATROPIUM BROMIDE 0.02% NEB 0.5 MG/2.5 ML AMPUL NEB SCH (20:30)
[2016-09-02] MEDS: LEVALBUTEROL HCL NEB 1.25 MG/3 ML AMPUL NEB SCH (20:30)
--- NOTE | 2016-09-02 21:34 | EKG REPORT ---
SEVERITY:- ABNORMAL ECG - SINUS TACHYCARDIA BIATRIAL ABNORMALITIES NONSPECIFIC IVCD WITH LAD LEFT VENTRICULAR HYPERTROPHY LATERAL INFARCT, OLD : Confirmed by: Darrell Mantilla 02-Sep-2016 21:33:18
[2016-09-02] MEDS ORDERED: (PENDING PHARMACY ID) (Cyclobenzaprine Hcl [Flexeril 5 Mg Tablet] 5 MG) PO SCH (22:00)
[2016-09-02] MEDS: CYCLOBENZAPRINE HCL 10 MG TABLET PO SCH (22:53)
[2016-09-02] MEDS: GUAIFENESIN 600 MG TABLET.SA PO SCH (22:53)
[2016-09-02] MEDS: GABAPENTIN 300 MG CAPSULE PO SCH (22:54)
[2016-09-02] MEDS: EZETIMIBE 10 MG TABLET PO SCH (22:54)
[2016-09-02] MEDS: SIMVASTATIN 40 MG TABLET PO SCH (22:54)
[2016-09-03] MEDS: IMIPENEM/CILASTATIN SODIUM INJ 500 MG VIAL IV SCH ×2 (00:16→03:16)
[2016-09-03] MEDS: TEMAZEPAM 15 MG CAPSULE PO PRN ×2 (00:23→23:08)
[2016-09-03] MEDS: METHYLPREDNISOLONE INJ 125 MG/2 ML SDV IV SCH ×2 (00:24→05:31)
[2016-09-03] MEDS ORDERED: IMIPENEM/CILASTATIN SODIUM INJ 500 MG VIAL IV ONE (00:52)
[2016-09-03] MEDS: IPRATROPIUM BROMIDE 0.02% NEB 0.5 MG/2.5 ML AMPUL NEB SCH ×4 (01:54→19:49)
[2016-09-03] MEDS: LEVALBUTEROL HCL NEB 1.25 MG/3 ML AMPUL NEB SCH ×4 (01:54→19:49)
[2016-09-03] MEDS: NORMAL SALINE 1000 ML 1,000 ML IV PRN (03:16)
[2016-09-03] MEDS: LANSOPRAZOLE 30 MG TAB.RAP.DR PO SCH (05:31)
[2016-09-03] MEDS: ACETAMINOPHEN 325 MG TABLET PO PRN ×2 (05:31→20:41)
[2016-09-03 06:31] LABS: ABSOLUTE LYMPHOCYTES (AUTO) 0.8 10^3/uL (0.5-4.7); ABSOLUTE MONOCYTES (AUTO) 0.5 10^3/uL (0.1-1.4); ABSOLUTE NEUT (AUTO) 8.8 10^3/uL (1.7-8.2); BASOPHILS % (AUTO) 0.1 % (0-2); HEMATOCRIT 32.4 % (36.0-47.0); HEMOGLOBIN 10.9 g/dL (12.0-15.5); HGB HCT DIFFERENCE 0.3; MEAN CORPUSCULAR HEMOGLOBIN 30.4 pg (27.0-33.4); MEAN CORPUSCULAR HGB CONC 33.5 g/dL (32.0-36.0); MEAN CORPUSCULAR VOLUME 91 fl (80-97); MONOCYTES % (AUTO) 4.9 % (3-13); RED BLOOD COUNT 3.58 10^6/uL (3.72-5.28); RED CELL DISTRIBUTION WIDTH 13.5 % (11.5-14.0); WHITE BLOOD COUNT 10.2 10^3/uL (4.0-10.5)
[2016-09-03 06:57] LABS: ANION GAP 11 (5-19); BLOOD UREA NITROGEN 17 mg/dL (7-20); CALCIUM 9.7 mg/dL (8.4-10.2); CARBON DIOXIDE 28 mmol/L (22-30); CHLORIDE 100 mmol/L (98-107); CREATININE RESULT 0.62 mg/dL (0.52-1.25); GLUCOSE 133 mg/dL (75-110); POTASSIUM 4.7 mmol/L (3.6-5.0); SODIUM 138.5 mmol/L (137-145)
[2016-09-03] MEDS ORDERED: EZETIMIBE PO SCH (08:00)
[2016-09-03] MEDS ORDERED: SIMVASTATIN PO SCH (08:00)
[2016-09-03] MEDS: CLOTRIMAZOLE 10 MG TROCHE PO SCH ×5 (08:45→20:14)
[2016-09-03] MEDS: ENOXAPARIN SODIUM INJ 40 MG/0.4 ML DISP.SYRIN SUBCUT SCH (08:59)
[2016-09-03] MEDS ORDERED: IMIPENEM/CILASTATIN SODIUM 500 MG in NORMAL SALINE 100 ML IV SCH (09:00)
[2016-09-03] MEDS: GUAIFENESIN 600 MG TABLET.SA PO SCH ×2 (09:00→23:07)
[2016-09-03] MEDS: CLOPIDOGREL BISULFATE 75 MG TABLET PO SCH (09:06)
[2016-09-03] MEDS: ASPIRIN 81 MG TABLET, CHEWABLE PO SCH (09:06)
[2016-09-03] MEDS: HYDROXYCHLOROQUINE SULFATE 200 MG TABLET PO SCH ×2 (09:10→17:35)
[2016-09-03] MEDS: METOPROLOL SUCCINATE 50 MG TAB.SR.24H PO SCH (09:10)
[2016-09-03] MEDS ORDERED: LEVOFLOXACIN 750 MG/D5W RTU 150 ML IV SCH (10:00)
[2016-09-03] MEDS: LEVOFLOXACIN 750 MG TABLET PO SCH (10:21)
[2016-09-03] MEDS: HYDROCODONE/ACETAMINOPHEN 7.5-325 MG TABLET PO PRN ×2 (10:21→17:36)
[2016-09-03] MEDS: PREDNISONE 20 MG TABLET PO SCH (10:22)
[2016-09-03] MEDS: LORAZEPAM INJ 2 MG/1 ML VIAL IV PRN ×2 (11:50→20:41)
[2016-09-03] MEDS ORDERED: DEXTROSE 40% GEL 15 GM TUBE PO PRN ×2 (14:58)
[2016-09-03] MEDS ORDERED: DEXTROSE 50%-WATER 25 GM/50 ML DISP.SYRIN IV PRN ×2 (14:58)
[2016-09-03] MEDS ORDERED: GLUCAGON,HUMAN RECOMB 1 MG INJ IM PRN (14:58)
[2016-09-03] MEDS ORDERED: INSULIN LISPRO 100 UNIT/ML 3 ML VIAL SUBCUT PRN (14:58)
--- NOTE | 2016-09-03 14:58 | PDOC PROGRESS REPORT ---
Subjective Progress Note for:: 09/03/16 Subjective:: Complains of a productive cough Physical Exam Vital Signs: Temp Pulse Resp BP Pulse Ox 97.8 F 98 19 106/60 93 09/03/16 11:32 09/03/16 13:06 09/03/16 13:06 09/03/16 11:32 09/03/16 13:06 Pulse Oximeter Continuous Start: 09/02/16 14: 34 Freq: RTQ4 Status: Active Document 09/03/16 13:06 [facility] [place]Rec[place] 09/03/16 13:31 [facility] [email or web address] Pulse Oximetry Assessment Oxygen Saturation (92-100) 93 Oxygen Flow Rate (L/min) 2 Oxygen Delivery Method Nasal Cannula Fraction of Inspired Oxygen (FIO2) 28 Equipment Usage Equipment in Use Continuous SpO2 Machine # N 2 Additional RT Notes Other with [employer] student Dlay Lara Intake & Output 09/02/16 09/03/16 09/04/16 06:59 06:59 06:59 Intake Total 1540 570 Output Total 1300 Balance 240 570 Weight 55.3 kg General appearance: PRESENT: no acute distress Eye exam: PRESENT: conjunctiva pink. ABSENT: scleral icterus Mouth exam: PRESENT: moist, tongue midline Neck exam: ABSENT: JVD Respiratory exam: PRESENT: rales - Right basilar. ABSENT: rhonchi, wheezes Cardiovascular exam: PRESENT: RRR. ABSENT: diastolic murmur, rubs, systolic murmur GI/Abdominal exam: PRESENT: normal bowel sounds, soft. ABSENT: distended, guarding, mass, organolmegaly, rebound, tenderness Extremities exam: ABSENT: calf tenderness, clubbing, pedal edema Neurological exam: PRESENT: alert, awake, oriented to person, oriented to place , oriented to time, oriented to situation Skin exam: PRESENT: dry, intact, warm. ABSENT: cyanosis, rash Results Laboratory Results: 09/03/16 06:07 09/03/16 06:07 09/02/16 09/02/16 09/03/16 17:15 20:10 06:07 WBC 10.2 RBC 3.58 L Hgb 10.9 L Hct 32.4 L MCV 91 MCH 30.4 MCHC 33.5 RDW 13.5 Plt Count 271 Seg Neutrophils % 87.0 H Lymphocytes % 8.0 L Monocytes % 4.9 Eosinophils % 0.0 Basophils % 0.1 Absolute Neutrophils 8.8 H Absolute Lymphocytes 0.8 Absolute Monocytes 0.5 Absolute Eosinophils 0.0 Absolute Basophils 0.0 Sodium Potassium Chloride Carbon Dioxide Anion Gap BUN Creatinine Est GFR ( Amer) Est GFR (Non-Af Amer) Glucose Lactic Acid 1.4 Calcium TSH 0.94 09/03/16 06:07 WBC RBC Hgb Hct MCV MCH MCHC RDW Plt Count Seg Neutrophils % Lymphocytes % Monocytes % Eosinophils % Basophils % Absolute Neutrophils Absolute Lymphocytes Absolute Monocytes Absolute Eosinophils Absolute Basophils Sodium 138.5 Potassium 4.7 Chloride 100 Carbon Dioxide 28 Anion Gap 11 BUN 17 Creatinine 0.62 Est GFR ( Amer) > 60 Est GFR (Non-Af Amer) > 60 Glucose 133 H Lactic Acid Calcium 9.7 TSH 09/02/16 09/02/16 09/03/16 15:55 20:10 00:23 Troponin I 0.412 0.330 0.238 Impressions: Chest X-Ray 09/02/16 07:08 IMPRESSION: Blunting of the left costophrenic angle which could represent pleural reaction or a tiny effusion. Visualized lung bills are free of active infiltrates. Other findings as noted above Chest/Abdomen CTA 09/02/16 08:27 IMPRESSION: 1. Right middle lobe and lingular infiltrate consistent with pneumonia. 2. Right hilar adenopathy. This could be reactive or neoplastic. Further evaluation with bronchoscopy or PET imaging may be beneficial. 3. No pulmonary emboli. Assessment & Plan - Diagnosis (1) Sepsis Qualifiers: Sepsis type: sepsis due to unspecified organism Qualified Code(s): A41.9 - Sepsis, unspecified organism Is this a current diagnosis for this admission?: YesPlan: Patient has sepsis secondary to the pneumonia. Her blood pressure has been doing well. (2) Pneumonia Qualifiers: Pneumonia type: due to unspecified organism Laterality: right Lung location: unspecified part of lung Qualified Code(s): J18.9 - Pneumonia, unspecified organism Is this a current diagnosis for this admission?: YesPlan: Culture so far negative. We'll continue with the Levaquin. (3) COPD with acute exacerbation Is this a current diagnosis for this admission?: YesPlan: Continue with nebulizers and steroids. (4) Elevated troponin Is this a current diagnosis for this admission?: YesPlan: Most likely secondary to her underlying sepsis. Cardiology has been consulted. (5) Depression Qualifiers: Depression Type: unspecified Qualified Code(s): F32.9 - Major depressive disorder, single episode, unspecified Is this a current diagnosis for this admission?: YesPlan: Continue with Celexa. (6) Gastritis Qualifiers: Gastritis type: unspecified gastritis Chronicity: unspecified Gastritis bleeding: presence of bleeding unspecified Qualified Code(s): K29.70 - Gastritis, unspecified, without bleeding Is this a current diagnosis for this admission?: YesPlan: Continue Prevacid. (7) Hyperglycemia Is this a current diagnosis for this admission?: YesPlan: We'll cover with sliding scale insulin. (8) Hyperlipidemia Qualifiers: Hyperlipidemia type: unspecified Qualified Code(s): E78.5 - Hyperlipidemia, unspecified Is this a current diagnosis for this admission?: YesPlan: Continue with Colestid, Zetia, Zocor. (9) Hypertension Qualifiers: Hypertension type: essential hypertension Qualified Code(s): I10 - Essential (primary) hypertension Is this a current diagnosis for this admission?: YesPlan: Patient is on Toprol. (10) Irritable bowel syndrome Qualifiers: Irritable bowel syndrome type: unspecified Qualified Code(s): K58.9 - Irritable bowel syndrome without diarrhea Is this a current diagnosis for this admission?: Yes (11) Obstructive sleep apnea Is this a current diagnosis for this admission?: YesPlan: Use CPAP as needed (12) Oral thrush Is this a current diagnosis for this admission?: YesPlan: Probably secondary to the steroids. Continue with Mycelex. - Time Time Spent with patient: 25-34 minutes - Inpatient Certification Medical Necessity: Need Close Monitoring Due to Risk of Patient Decompensation
[2016-09-03] MEDS: ROPINIROLE HCL 2 MG TABLET PO SCH (17:36)
[2016-09-03] MEDS: CITALOPRAM HYDROBROMIDE 20 MG TABLET PO SCH (17:36)
--- NOTE | 2016-09-03 18:33 | PDOC CONSULTATION ---
Consultation Consult Date: 09/03/16 Attending physician:: ABHILASH REYNOSO Consult reason:: Troponin I elevation History of Present Illness Admission Date/PCP: 09/02/16 14:33 SMOOTH GARCIA MD Patient complains of: Shortness of breath History of Present Illness: MIREYA TORRES is a 66 year old female, with a COPD, obstructive sleep apnea, hypertension presents to the hospital because of shortness of breath of 5 days' duration. Patient had a shoulder surgery 3 weeks ago in the hospital. Patient reportedly that she was put to sleep during the procedure. 5 days ago she started to develop cough and shortness of breath, with associated wheezing, sweating, and low-grade fever. There is pleurisy on the right. There is no nausea or vomiting. She had an episode of diarrhea. Cough is productive of greenish phlegm. She is taking her inhalers according partial relief of symptoms and earlier today the symptoms got worse. Patient denies any dizziness lightheadedness or syncope. No left-sided chest pain. In the emergency room troponin was elevated, CT scan of the chest revealed infiltrate on the right, WBC was elevated. Patient was given intravenous fluids, antibiotics and was referred for admission. No history of coronary artery disease. Patient continues to be short of breath. In the meantime patient was noted to have troponin I elevation in the non-STEMI range. EKGs did not suggest any ST-T wave changes but she was noted to be significantly tachycardic. Patient denied any recent nuclear stress test etc. Subsequent CTA was positive for pneumonia. Past Medical History Cardiac Medical History: Reports: Hyperlipidema - takes med, Hypertension - takes med Denies: Atrial Fibrillation, Congestive Heart Failure, Coronary Artery Disease, Myocardial Infarction, Peripheral Vascular Disease, Pulmonary Embolism , Heart Murmur Pulmonary Medical History: Reports: Asthma, Bronchitis - yearly, Chronic Obstructive Pulmonary Disease (COPD), Pneumonia - several times, Sleep Apnea - uses CPAP Denies: Respiratory Failure, Tuberculosis Neurological Medical History: Reports: Migraine Denies: Seizures Endocrine Medical History: Denies: Hyperthyroidism, Hypothyroidism Renal/ Medical History: Denies: End Stage Renal Disease Malignancy Medical History: Reports: Breast Cancer - left breast/Mastectomy Denies: Cervical Cancer, Leukemia, Lung Cancer, Ovarian Cancer GI Medical History: Reports: Gastroesophageal Reflux Disease - takes med, Other - Irritable bowel syndrome Denies: Crohn's Disease, Hiatal Hernia Musculoskeltal Medical History: Reports: Arthritis, Fibromyalgia Psychiatric Medical History: Reports: Depression - mild Denies: Bipolar Disorder, Dementia, Post Traumatic Stress Disorder Hematology: Reports: Anemia - blood transfusion with back surgery Denies: Hemophilia, Sickle Cell Disease Infectious Medical History: Denies: HIV Past Surgical History Past Surgical History: Reports: Appendectomy, Cholecystectomy, Hysterectomy, Mastectomy - left, Orthopedic Surgery - Recent right shoulder surgery, Tonsillectomy, Tubal Ligation Denies: Amputation, Section, Colostomy, Coronary Artery Bypass Graft , Gastric Bypass Surgery, Herniorrhaphy, Pacemaker Social History Information Source: Patient Lives with: Alone Smoking Status: Former Smoker Number of Years Smokin Last Time Smoked: last week Frequency of Alcohol Use: Rare Hx Recreational Drug Use: No Drugs: None Hx Prescription Drug Abuse: No - Advance Directive Resuscitation Status: Full Code Surrogate healthcare decision maker:: Patient's son is the surrogate decision maker Family History Family History: None Parental Family History Reviewed: Yes Children Family History Reviewed: Yes Sibling(s) Family History Reviewed.: Yes - Negative for premature coronary artery disease or sudden cardiac in the family amongst first degree relatives. Medication/Allergy Home Medications: Albuterol Sulfate [Albuterol Sulfate 2.5mg/3 mL] 1 vial IH ASDIR PRN 09/03/16 Albuterol Sulfate [Proair Respiclick] 90 mcg IH ASDIR PRN 09/03/16 Butalb/Acetaminophen/Caffeine [Fioricet (50-325-40 mg) Tablet] 1 tab PO Q12HP PRN 09/03/16 Cholecalciferol (Vitamin D3) [Vitamin D3] 2,000 unit PO DAILY 09/03/16 Citalopram Hydrobromide [Celexa 20 mg Tablet] 20 mg PO QHS 09/03/16 Colestipol HCl [Colestid 5 gm Packet] 15 gm PO DAILYP PRN 09/03/16 Cyclobenzaprine HCl [Flexeril 5 mg Tablet] 5 mg PO QHS 09/03/16 Desloratadine [Clarinex] 5 mg PO QHS 09/03/16 Ezetimibe/Simvastatin [Vytorin 10-40 Mg Tablet] 1 each PO DAILY 09/03/16 Fluticasone Propionate [Flonase Nasal Ventura 50 Mcg/Ventura 16 gm] 1 spray NASL Q12 09/03/16 Fluticasone/Salmeterol [Advair 500-50 Diskus 28 Dose] 1 inh IH Q12 09/03/16 Gabapentin [Neurontin] 600 mg PO QHS 09/03/16 Hydrocodone/Acetaminophen [Teaberry 7.5-325 mg Tablet] 1 tab PO Q6HP PRN 09/03/16 Hydroxychloroquine Sulfate [Plaquenil 200 mg Tablet] 200 mg PO BID 09/03/16 Ibandronate Sodium [Boniva] 150 mg PO ASDIR 09/03/16 Lidocaine [Lidoderm 5% (700 mg) Transdermal Patch] 1 patch TP DAILYP PRN Metoprolol Succinate [Toprol Xl 50 mg Tab.sr] 50 mg PO DAILY 09/03/16 Metoprolol Succinate [Toprol Xl 50 mg Tab.sr] 50 mg PO DAILYP PRN 09/03/16 Montelukast Sodium [Singulair 10 mg Tablet] 10 mg PO QHS 09/03/16 Ondansetron [Zofran Odt 4 mg Tablet] 4 mg PO DAILYP PRN 09/03/16 Rabeprazole Sodium [Aciphex] 20 mg PO BID 09/03/16 Ropinirole HCl [Requip 2 Mg Tablet] 2 mg PO QHS 09/03/16 Temazepam [Restoril 15 mg Capsule] 15 mg PO QHS 09/03/16 Allergies/Adverse Reactions: Penicillins Adverse Reaction (Verified 09/02/16 08:22) Lethargy Review of Systems Review of Systems: Please see history of present illness and past medical history as wall. Constitutional: Low-grade fever or chills reported. Head : No recent chronic headaches, recent head injury. Eyes: No recent eye pain, diplopia, redness, discharge, acute visual changes. Ears: No recent chronic ear pain, acute hearing loss, ear discharge. Oral cavity: No recent ulcerations, bleeding, oral cavity discomfort. Neck: No recent acute neck pain reported. Hematologic: No recent easy bruising or bleeding or hematologic malignancy reported. Lymphatic: No recent lymphatic malignancy, chronic lymphadenopathy reported yet Cardiovascular system review: See history of present illness. Respiratory system review: Recent cough with slight sputum production reported but no hemoptysis, blood clots in the lungs reported. Mild Shortness of breath on exertion Gastrointestinal system review: Negative for any recent acute or chronic abdominal pain, hematemesis, melena, recent change in bowel habits. Genitourinary system review: No recent acute or chronic hematuria, flank pain, UTI etc. reported. Skin system review: Negative for any recent abnormal bruising, no rash, no pruritus reported. Neurologic: No prior history of strokes, mini strokes, seizure disorder. Psychologic: No history of major psychosis or major depression reported. Musculoskeletal: Minor aches and pains reported. No acute joint swelling reported. Endocrine: No recent polyuria, polydipsia, recent heat or cold intolerance. Physical Exam Vital Signs: Temp Pulse Resp BP Pulse Ox 97.8 F 109 H 16 130/62 H 96 09/03/16 15:09 09/03/16 16:54 09/03/16 15:09 09/03/16 15:09 09/03/16 16:00 Pulse Oximeter Continuous Start: 09/02/16 14: 34 Freq: RTQ4 Status: Active Document 09/03/16 16:00 [facility] (Rec: 09/03/16 16:19 DS [email or web address]) Pulse Oximetry Assessment Oxygen Saturation (92-100) 96 Oxygen Flow Rate (L/min) 2 Oxygen Delivery Method Nasal Cannula Equipment Usage Equipment in Use Continuous SpO2 Machine # 2 Intake & Output 09/02/16 09/03/16 09/04/16 06:59 06:59 06:59 Intake Total 1540 1735 Output Total 1300 Balance 240 1735 Weight 55.3 kg Exam: GENERAL: well-nourished and in no acute distress. Alert and oriented x3 HEAD: Atraumatic, normocephalic. EYES: Pupils equal round and reactive to light, extraocular movements intact, sclera anicteric, conjunctiva are normal. ENT: TMs normal, nares patent, oropharynx clear without exudates. Moist mucous membranes. No oral ulcerations or bleeding gums noted NECK: supple without lymphadenopathy. Trachea is central. No cervical or axillary lymphadenopathy noted. Carotids are 2+, JVD WNL LUNGS: Respiration seems nonlabored, no significant accessory muscle action noted. Bilateral fine crackles noted both bases left more than right. No wheezes rales or rhonchi noted. No significant dullness noted on percussion. CHEST: Palpation of the chest wall shows no significant chest wall tenderness. No other significant abnormalities noted. 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 ABDOMEN: Soft, no significant tenderness appreciated, normoactive bowel sounds. No guarding, no rebound. No rigidity noted . No masses appreciated. EXTREMITIES: Pedal pulses are 1-2+, no calf tenderness noted. No clubbing or cyanosis.trace to 1+ pedal edema noted NEUROLOGICAL: Focused neurological exam showed no significant neurologic deficit. Normal speech, no focal weakness appreciated. PSYCH: Normal mood, normal affect. Judgment and insight within normal limits. SKIN: No significant ecchymosis, rash, ulcerations or signs of pruritus noted. MUSCULOSKELETAL EXAM: No significant joint swelling noted. Results Laboratory Results: 09/03/16 06:07 09/03/16 06:07 09/02/16 09/03/16 09/03/16 20:10 06:07 06:07 WBC 10.2 RBC 3.58 L Hgb 10.9 L Hct 32.4 L MCV 91 MCH 30.4 MCHC 33.5 RDW 13.5 Plt Count 271 Seg Neutrophils % 87.0 H Lymphocytes % 8.0 L Monocytes % 4.9 Eosinophils % 0.0 Basophils % 0.1 Absolute Neutrophils 8.8 H Absolute Lymphocytes 0.8 Absolute Monocytes 0.5 Absolute Eosinophils 0.0 Absolute Basophils 0.0 Sodium 138.5 Potassium 4.7 Chloride 100 Carbon Dioxide 28 Anion Gap 11 BUN 17 Creatinine 0.62 Est GFR ( Amer) > 60 Est GFR (Non-Af Amer) > 60 Glucose 133 H Calcium 9.7 TSH 0.94 09/02/16 09/02/16 09/03/16 15:55 20:10 00:23 Troponin I 0.412 0.330 0.238 EKG Comments: Sinus tachycardia, no acute ST-T wave changes noted Impressions: Chest X-Ray 09/02/16 07:08 IMPRESSION: Blunting of the left costophrenic angle which could represent pleural reaction or a tiny effusion. Visualized lung bills are free of active infiltrates. Other findings as noted above Chest/Abdomen CTA 09/02/16 08:27 IMPRESSION: 1. Right middle lobe and lingular infiltrate consistent with pneumonia. 2. Right hilar adenopathy. This could be reactive or neoplastic. Further evaluation with bronchoscopy or PET imaging may be beneficial. 3. No pulmonary emboli. Assessment & Plan - Diagnosis (1) Elevated troponin Is this a current diagnosis for this admission?: Yes (2) Respiratory failure Qualifiers: Chronicity: acute on chronic Respiratory failure complication: hypercapnia Qualified Code(s): J96.22 - Acute and chronic respiratory failure with hypercapnia Is this a current diagnosis for this admission?: Yes (3) COPD with acute exacerbation Is this a current diagnosis for this admission?: Yes (4) Hyperlipidemia Qualifiers: Hyperlipidemia type: unspecified Qualified Code(s): E78.5 - Hyperlipidemia, unspecified Is this a current diagnosis for this admission?: Yes (5) Hypertension Qualifiers: Hypertension type: essential hypertension Qualified Code(s): I10 - Essential (primary) hypertension Is this a current diagnosis for this admission?: Yes (6) Pneumonia Qualifiers: Pneumonia type: due to unspecified organism Laterality: right Lung location: unspecified part of lung Qualified Code(s): J18.9 - Pneumonia, unspecified organism Is this a current diagnosis for this admission?: Yes (7) Obstructive sleep apnea Is this a current diagnosis for this admission?: Yes - Notes Notes: Troponin I elevation: This is in the non-STEMI range. This is type II myocardial infarction. This is brought on by metabolic problems and also sinus tachycardia. Related to supply demand mismatch. At this point will order a 2- D echo for risk stratification. Recommend medical management for probable underlying CAD. Respiratory failure: Patient has significant COPD and also has pneumonia. Agree with current management plans. COPD with acute exacerbation: Continue bronchodilator therapy and other management plans as needed such as steroids. Hyperlipidemia: LDL goal is less than 100. Recommend statin therapy at least intermediate or high dose, of high potency status. Periodic lipid panel and liver panel is indicated. Patient to report any significant muscle discomfort or other side effects. Blood pressure goal in this patient is 140/90 or less. This was discussed with the patient. Currently blood pressure under reasonable control. Better medication for this patient are JOSUE inhibitor/ARB/beta jus etc. discussed side effects of uncontrolled hypertension and also severe hypotension. Pneumonia: Patient noted to have bilateral pneumonia. Continue antibiotic therapy. Sleep apnea syndrome: This was noted in records. Patient will benefit from further evaluation as an outpatient of this condition. I'll be happy to do this. - Time Time Spent: 30 to 50 Minutes - CODE STATUS was discussed, patient remains full code. Surrogate decision-maker patient's son. Multiple medical problems were addressed.More than 50% of the time spent coordinating care, discussing management plans with involved caregivers. Management plans discussed with involved personnels. Medical decision making was of moderate complexity. Medications reviewed and adjusted accordingly: Yes
[2016-09-03 18:46] LABS: APPEARANCE,URINE SLIGHTLY-CLOUDY; BILIRUBIN,URINE SMALL (NEGATIVE); GLUCOSE, URINE 50 mg/dL (NEGATIVE); KETONES,URINE 20 mg/dL (NEGATIVE); LEUKOCYTE ESTERASE,URINE SMALL (NEGATIVE); NITRITE,URINE NEGATIVE (NEGATIVE); PROTEIN,URINE 100 mg/dL (NEGATIVE); URINE SPECIFIC GRAVITY 1.038
[2016-09-03] MEDS: GABAPENTIN 300 MG CAPSULE PO SCH (23:07)
[2016-09-03] MEDS: EZETIMIBE 10 MG TABLET PO SCH (23:07)
[2016-09-03] MEDS: SIMVASTATIN 40 MG TABLET PO SCH (23:08)
[2016-09-03] MEDS: CYCLOBENZAPRINE HCL 10 MG TABLET PO SCH (23:08)
[2016-09-04] MEDS: IPRATROPIUM BROMIDE 0.02% NEB 0.5 MG/2.5 ML AMPUL NEB SCH ×4 (02:33→20:16)
[2016-09-04] MEDS: LEVALBUTEROL HCL NEB 1.25 MG/3 ML AMPUL NEB SCH ×4 (02:33→20:16)
[2016-09-04] MEDS: HYDROCODONE/ACETAMINOPHEN 7.5-325 MG TABLET PO PRN ×3 (03:55→20:17)
[2016-09-04 05:43] LABS: ABSOLUTE MONOCYTES (AUTO) 0.9 10^3/uL (0.1-1.4); ABSOLUTE NEUT (AUTO) 6.9 10^3/uL (1.7-8.2); BASOPHILS % (AUTO) 0.2 % (0-2); EOSINOPHILS % (AUTO) 0.1 % (0-6); HEMATOCRIT 30.5 % (36.0-47.0); HEMOGLOBIN 10.3 g/dL (12.0-15.5); HGB HCT DIFFERENCE 0.4; LYMPHOCYTES % (AUTO) 19.8 % (13-45); MEAN CORPUSCULAR HEMOGLOBIN 30.6 pg (27.0-33.4); MEAN CORPUSCULAR HGB CONC 33.9 g/dL (32.0-36.0); MEAN CORPUSCULAR VOLUME 90 fl (80-97); MONOCYTES % (AUTO) 9.5 % (3-13); RED BLOOD COUNT 3.38 10^6/uL (3.72-5.28); RED CELL DISTRIBUTION WIDTH 13.7 % (11.5-14.0); SEGMENTED NEUTROPHILS % (AUTO) 70.4 % (42-78); WHITE BLOOD COUNT 9.8 10^3/uL (4.0-10.5)
[2016-09-04 06:08] LABS: BLOOD UREA NITROGEN 15 mg/dL (7-20); CALCIUM 9.1 mg/dL (8.4-10.2); CARBON DIOXIDE 29 mmol/L (22-30); CHLORIDE 100 mmol/L (98-107); CREATININE RESULT 0.68 mg/dL (0.52-1.25); GLUCOSE 87 mg/dL (75-110); POTASSIUM 4.2 mmol/L (3.6-5.0); SODIUM 133.3 mmol/L (137-145)
[2016-09-04] MEDS: NORMAL SALINE 1000 ML 1,000 ML IV PRN ×2 (06:09→19:35)
[2016-09-04] MEDS: CLOTRIMAZOLE 10 MG TROCHE PO SCH ×5 (06:09→19:34)
[2016-09-04] MEDS: LANSOPRAZOLE 30 MG TAB.RAP.DR PO SCH (06:09)
[2016-09-04 06:15] LABS: ANION GAP 4 (5-19)
[2016-09-04] MEDS: ENOXAPARIN SODIUM INJ 40 MG/0.4 ML DISP.SYRIN SUBCUT SCH (09:02)
[2016-09-04] MEDS: PREDNISONE 20 MG TABLET PO SCH (09:39)
[2016-09-04] MEDS: HYDROXYCHLOROQUINE SULFATE 200 MG TABLET PO SCH ×2 (09:39→17:08)
[2016-09-04] MEDS: ASPIRIN 81 MG TABLET, CHEWABLE PO SCH (09:39)
[2016-09-04] MEDS: CLOPIDOGREL BISULFATE 75 MG TABLET PO SCH (09:39)
[2016-09-04] MEDS: LEVOFLOXACIN 750 MG TABLET PO SCH (09:40)
[2016-09-04] MEDS: METOPROLOL SUCCINATE 50 MG TAB.SR.24H PO SCH (09:42)
[2016-09-04] MEDS: GUAIFENESIN 600 MG TABLET.SA PO SCH ×2 (09:42→21:43)
--- NOTE | 2016-09-04 11:14 | PDOC PROGRESS REPORT ---
Subjective Progress Note for:: 09/04/16 Subjective:: Complains of a productive cough. Also complains of a migraine headache. Physical Exam Vital Signs: Temp Pulse Resp BP Pulse Ox 98.1 F 141 H 24 H 126/77 H 94 09/04/16 08:35 09/04/16 08:35 09/04/16 08:35 09/04/16 08:35 09/04/16 08:09 Pulse Oximeter Continuous Start: 09/02/16 14: 34 Freq: RTQ4 Status: Active Document 09/04/16 08:09 [facility] (Rec: 09/04/16 10:22 [facility] [email or web address]) Pulse Oximetry Assessment Oxygen Saturation (92-100) 94 Oxygen Flow Rate (L/min) 2 Oxygen Delivery Method Nasal Cannula Equipment Usage Equipment in Use Continuous SpO2 Machine # 2 Intake & Output 09/03/16 09/04/16 09/05/16 06:59 06:59 06:59 Intake Total 1540 2165 Output Total 1300 750 Balance 240 1415 Weight 55.3 kg 58.3 kg General appearance: PRESENT: no acute distress Eye exam: PRESENT: conjunctiva pink. ABSENT: scleral icterus Neck exam: ABSENT: JVD Respiratory exam: PRESENT: rales - Right basilar rales. ABSENT: rhonchi, wheezes Cardiovascular exam: PRESENT: RRR. ABSENT: diastolic murmur, rubs, systolic murmur GI/Abdominal exam: PRESENT: normal bowel sounds, soft. ABSENT: distended, guarding, mass, organolmegaly, rebound, tenderness Rectal exam: PRESENT: deferred Extremities exam: ABSENT: calf tenderness, clubbing, pedal edema Neurological exam: PRESENT: alert, awake, oriented to person, oriented to place , oriented to time, oriented to situation Psychiatric exam: PRESENT: appropriate affect Skin exam: PRESENT: dry, intact, warm. ABSENT: cyanosis, rash Results Laboratory Results: 09/04/16 05:21 09/04/16 05:21 09/03/16 09/04/16 09/04/16 18:00 05:21 05:21 WBC 9.8 RBC 3.38 L Hgb 10.3 L Hct 30.5 L MCV 90 MCH 30.6 MCHC 33.9 RDW 13.7 Plt Count 282 Seg Neutrophils % 70.4 Lymphocytes % 19.8 Monocytes % 9.5 Eosinophils % 0.1 Basophils % 0.2 Absolute Neutrophils 6.9 Absolute Lymphocytes 2.0 Absolute Monocytes 0.9 Absolute Eosinophils 0.0 Absolute Basophils 0.0 Sodium 133.3 L Potassium 4.2 Chloride 100 Carbon Dioxide 29 Anion Gap 4 L BUN 15 Creatinine 0.68 Est GFR ( Amer) > 60 Est GFR (Non-Af Amer) > 60 Glucose 87 Calcium 9.1 Urine Color BEATRICE Urine Appearance SLIGHTLY-CLOUDY Urine pH 5.0 Ur Specific [place] 1.038 Urine Protein 100 H Urine Glucose (UA) 50 H Urine Ketones 20 H Urine Blood LARGE H Urine Nitrite NEGATIVE Ur Leukocyte Esterase SMALL H Urine WBC (Auto) 4 Urine RBC (Auto) >182 09/02/16 09/02/16 09/03/16 15:55 20:10 00:23 Troponin I 0.412 0.330 0.238 Impressions: Chest X-Ray 09/02/16 07:08 IMPRESSION: Blunting of the left costophrenic angle which could represent pleural reaction or a tiny effusion. Visualized lung bills are free of active infiltrates. Other findings as noted above Chest/Abdomen CTA 09/02/16 08:27 IMPRESSION: 1. Right middle lobe and lingular infiltrate consistent with pneumonia. 2. Right hilar adenopathy. This could be reactive or neoplastic. Further evaluation with bronchoscopy or PET imaging may be beneficial. 3. No pulmonary emboli. Assessment & Plan - Diagnosis (1) Sepsis Qualifiers: Sepsis type: sepsis due to unspecified organism Qualified Code(s): A41.9 - Sepsis, unspecified organism Is this a current diagnosis for this admission?: YesPlan: Patient has sepsis secondary to the pneumonia. Her blood pressure has been doing well. (2) Pneumonia Qualifiers: Pneumonia type: due to unspecified organism Laterality: right Lung location: unspecified part of lung Qualified Code(s): J18.9 - Pneumonia, unspecified organism Is this a current diagnosis for this admission?: YesPlan: Culture so far negative. We'll continue with the Levaquin. (3) COPD with acute exacerbation Is this a current diagnosis for this admission?: YesPlan: Continue with nebulizers and steroids. (4) Elevated troponin Is this a current diagnosis for this admission?: YesPlan: Most likely secondary to her underlying sepsis. Cardiology has seen the patient in consultation (5) Depression Qualifiers: Depression Type: unspecified Qualified Code(s): F32.9 - Major depressive disorder, single episode, unspecified Is this a current diagnosis for this admission?: YesPlan: Continue with Celexa. (6) Gastritis Qualifiers: Gastritis type: unspecified gastritis Chronicity: unspecified Gastritis bleeding: presence of bleeding unspecified Qualified Code(s): K29.70 - Gastritis, unspecified, without bleeding Is this a current diagnosis for this admission?: YesPlan: Continue Prevacid. (7) Hyperglycemia Is this a current diagnosis for this admission?: YesPlan: We'll cover with sliding scale insulin. (8) Hyperlipidemia Qualifiers: Hyperlipidemia type: unspecified Qualified Code(s): E78.5 - Hyperlipidemia, unspecified Is this a current diagnosis for this admission?: YesPlan: Continue with Colestid, Zetia, Zocor. (9) Hypertension Qualifiers: Hypertension type: essential hypertension Qualified Code(s): I10 - Essential (primary) hypertension Is this a current diagnosis for this admission?: YesPlan: Patient is on Toprol. (10) Irritable bowel syndrome Qualifiers: Irritable bowel syndrome type: unspecified Qualified Code(s): K58.9 - Irritable bowel syndrome without diarrhea Is this a current diagnosis for this admission?: Yes (11) Obstructive sleep apnea Is this a current diagnosis for this admission?: YesPlan: Use CPAP as needed (12) Oral thrush Is this a current diagnosis for this admission?: YesPlan: Probably secondary to the steroids. Continue with Mycelex. (13) Headache Is this a current diagnosis for this admission?: YesPlan: We'll give Fioricet when necessary.
--- NOTE | 2016-09-04 14:17 | XCELERA REPORT ---
[address] [address] Transthoracic Echocardiogram Report Name: MIREYA TORRES Age: 66 yrs Gender: Female : 1950 Patient Status: Inpatient Patient Location: [id number] Study Date: 09/04/2016 10:35 AM Height: 62 in Weight: 121 lb BSA: 1.5 m2 Procedure: A complete two-dimensional transthoracic echocardiogram was performed (2D, M-mode, spectral and color flow Doppler). The study was technically difficult with many images being suboptimal in quality. Reason For Study: abnormal troponin I elevation, non-STEMI Ordering Physician: DARRELL YOUNG Performed By: Nicole Hung Interpretation Summary The left ventricular ejection fraction is preserved. There is borderline concentric left ventricular hypertrophy. The left ventricle is grossly normal size. Doppler measurements suggest pseudonormalized left ventricular relaxation, which is associated with grade II/IV or mild to moderate diastolic dysfunction Wall motion cannot be accurately commented on, but no definite regional wall motion abnormalities noted. The right ventricle is mildly dilated. There is normal right ventricular wall thickness. The right ventricular systolic function is normal. The right atrium is mildly dilated. There is no mitral valve stenosis. There is a mild amount of mitral regurgitation There is no aortic valve stenosis No aortic regurgitation is present. There is a mild amount of tricuspid regurgitation There is mild pulmonary hypertension by echo Best estimated RVSP is approximately 45 mm/Hg. The inferior vena cava appeared normal and decreased < 50% with respiration (RAP 10-15 mmHg) There is no pericardial effusion. MMode/2D Measurements \T\ Calculations RVDd: 2.8 cm LVIDd: 4.3 cm FS: 37.4 % Ao root diam: 2.8 cm IVSd: 1.0 cm LVIDs: 2.7 cm EDV(Teich): 83.6 ml LVPWd: 1.0 cm ESV(Teich): 26.9 ml Ao root area: 6.0 cm2 EF(Teich): 67.8 % LA dimension: 2.9 cm Doppler Measurements \T\ Calculations MV E max sol: MV P1/2t max sol: Ao V2 max: LV V1 max P.2 cm/sec 97.2 cm/sec 123.1 cm/sec 5.8 mmHg MV A max sol: MV P1/2t: 75.1 msec Ao max PG: LV V1 max: 124.9 cm/sec 6.1 mmHg 120.4 cm/sec MV E/A: 0.79 MVA(P1/2t): 2.9 cm2 MV dec slope: 379.1 cm/sec2 MV dec time: 0.26 sec PA V2 max: TR max sol: 103.2 cm/sec 281.0 cm/sec PA max P.3 mmHgTR max P.6 mmHg Left Ventricle The left ventricle is grossly normal size. There is borderline concentric left ventricular hypertrophy. The left ventricular ejection fraction is preserved. Doppler measurements suggest pseudonormalized left ventricular relaxation, which is associated with grade II/IV or mild to moderate diastolic dysfunction. Wall motion cannot be accurately commented on, but no definite regional wall motion abnormalities noted. Right Ventricle The right ventricle is mildly dilated. There is normal right ventricular wall thickness. The right ventricular systolic function is normal. Atria The right atrium is mildly dilated. The left atrial size is normal. Interarterial septum not well visualized and not well dopplered. Cannot comment on ASD/PFO presence. Mitral Valve The mitral valve leaflets are sclerotic, but show no functional abnormalities. There is no mitral valve stenosis. There is a mild amount of mitral regurgitation. Aortic Valve The aortic valve is grossly normal. There is no aortic valve stenosis. No aortic regurgitation is present. Tricuspid Valve The tricuspid valve is not well visualized, but is grossly normal. There is no tricuspid stenosis. There is a mild amount of tricuspid regurgitation. There is mild pulmonary hypertension by echo. Best estimated RVSP is approximately 45 mm/Hg. Pulmonic Valve The pulmonic valve is not well visualized. Great Vessels The aortic root is not well visualized. The inferior vena cava appeared normal and decreased < 50% with respiration (RAP 10-15 mmHg). Effusions There is no pericardial effusion. : DARRELL YOUNG > Darrell Young
[2016-09-04] MEDS: CITALOPRAM HYDROBROMIDE 20 MG TABLET PO SCH (17:08)
[2016-09-04] MEDS: ROPINIROLE HCL 2 MG TABLET PO SCH (17:08)
--- NOTE | 2016-09-04 20:30 | PDOC PROGRESS REPORT ---
Subjective Progress Note for:: 09/04/16 Subjective:: Patient seems to be doing better with gradual improvement. Pt is denying any chest arm or neck discomfort. Patient denying any PND, orthopnea. Patient denied any sustained palpitations, dizziness, syncope, near syncope. Patient denying any fever chills. Patient denying any other significant discomfort. Patient is maintaining sinus rhythm. Patient still has shortness of breath. Currently wearing oxygen and has some wheezing. Review of systems: Rest review of systems negative. Medications: Medications have been reviewed. Physical Exam Vital Signs: Temp Pulse Resp BP Pulse Ox 98.4 F 86 18 117/56 L 94 09/04/16 16:26 09/04/16 19:00 09/04/16 14:00 09/04/16 16:26 09/04/16 15:35 Pulse Oximeter Continuous Start: 09/02/16 14: 34 Freq: RTQ4 Status: Active Document 09/04/16 15:35 LDA (Rec: 09/04/16 15:36 LDA [email or web address]) Pulse Oximetry Assessment Oxygen Saturation (92-100) 94 Oxygen Flow Rate (L/min) 2 Oxygen Delivery Method Nasal Cannula Equipment Usage Equipment in Use Continuous SpO2 Machine # 2 Intake & Output 09/03/16 09/04/16 09/05/16 06:59 06:59 06:59 Intake Total 1540 2165 1050 Output Total 1300 750 240 Balance 240 1415 810 Weight 55.3 kg 58.3 kg Exam: GENERAL: well-nourished and in no acute distress. Alert and oriented x3 HEAD: Atraumatic, normocephalic. EYES: Pupils equal round and reactive to light, extraocular movements intact, sclera anicteric, conjunctiva are normal. ENT: TMs normal, nares patent, oropharynx clear without exudates. Moist mucous membranes. No oral ulcerations or bleeding gums noted NECK: supple without lymphadenopathy. Trachea is central. No cervical or axillary lymphadenopathy noted. Carotids are 2+, JVD WNL LUNGS: Respiration seems nonlabored, no significant accessory muscle action noted. Bilateral wheezing noted. No significant dullness noted on percussion. CHEST: Palpation of the chest wall shows no significant chest wall tenderness. No other significant abnormalities noted. 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 ABDOMEN: Soft, no significant tenderness appreciated, normoactive bowel sounds. No guarding, no rebound. No rigidity noted . No masses appreciated. EXTREMITIES: Pedal pulses are 1-2+, no calf tenderness noted. No clubbing or cyanosis.trace to 1+ pedal edema noted NEUROLOGICAL: Focused neurological exam showed no significant neurologic deficit. Normal speech, no focal weakness appreciated. PSYCH: Normal mood, normal affect. Judgment and insight within normal limits. SKIN: No significant ecchymosis, rash, ulcerations or signs of pruritus noted. MUSCULOSKELETAL EXAM: No significant joint swelling noted. Results Laboratory Results: 09/04/16 05:21 09/04/16 05:21 09/04/16 09/04/16 05:21 05:21 WBC 9.8 RBC 3.38 L Hgb 10.3 L Hct 30.5 L MCV 90 MCH 30.6 MCHC 33.9 RDW 13.7 Plt Count 282 Seg Neutrophils % 70.4 Lymphocytes % 19.8 Monocytes % 9.5 Eosinophils % 0.1 Basophils % 0.2 Absolute Neutrophils 6.9 Absolute Lymphocytes 2.0 Absolute Monocytes 0.9 Absolute Eosinophils 0.0 Absolute Basophils 0.0 Sodium 133.3 L Potassium 4.2 Chloride 100 Carbon Dioxide 29 Anion Gap 4 L BUN 15 Creatinine 0.68 Est GFR ( Amer) > 60 Est GFR (Non-Af Amer) > 60 Glucose 87 Calcium 9.1 09/02/16 09/02/16 09/03/16 15:55 20:10 00:23 Troponin I 0.412 0.330 0.238 Impressions: Chest X-Ray 09/02/16 07:08 IMPRESSION: Blunting of the left costophrenic angle which could represent pleural reaction or a tiny effusion. Visualized lung bills are free of active infiltrates. Other findings as noted above Chest/Abdomen CTA 09/02/16 08:27 IMPRESSION: 1. Right middle lobe and lingular infiltrate consistent with pneumonia. 2. Right hilar adenopathy. This could be reactive or neoplastic. Further evaluation with bronchoscopy or PET imaging may be beneficial. 3. No pulmonary emboli. Assessment & Plan - Diagnosis (1) Elevated troponin Is this a current diagnosis for this admission?: Yes (2) Respiratory failure Qualifiers: Chronicity: acute on chronic Respiratory failure complication: hypercapnia Qualified Code(s): J96.22 - Acute and chronic respiratory failure with hypercapnia Is this a current diagnosis for this admission?: Yes (3) COPD with acute exacerbation Is this a current diagnosis for this admission?: Yes (4) Hyperlipidemia Qualifiers: Hyperlipidemia type: unspecified Qualified Code(s): E78.5 - Hyperlipidemia, unspecified Is this a current diagnosis for this admission?: Yes (5) Hypertension Qualifiers: Hypertension type: essential hypertension Qualified Code(s): I10 - Essential (primary) hypertension Is this a current diagnosis for this admission?: Yes (6) Pneumonia Qualifiers: Pneumonia type: due to unspecified organism Laterality: right Lung location: unspecified part of lung Qualified Code(s): J18.9 - Pneumonia, unspecified organism Is this a current diagnosis for this admission?: Yes (7) Obstructive sleep apnea Is this a current diagnosis for this admission?: Yes - Notes Notes: Troponin I elevation: This is in the non-STEMI range. This is type II myocardial infarction. This is brought on by metabolic problems and also sinus tachycardia. Related to supply demand mismatch. 2-D echo showed preserved LVEF. No significant valvular regurgitation or stenosis noted. Recommend medical management for probable underlying CAD. Respiratory failure: Patient has significant COPD and also has pneumonia. Agree with current management plans. Patient advised to quit smoking. COPD with acute exacerbation: Continue bronchodilator therapy and other management plans as needed such as steroids. Hyperlipidemia: LDL goal is less than 100. Recommend statin therapy at least intermediate or high dose, of high potency status. Periodic lipid panel and liver panel is indicated. Patient to report any significant muscle discomfort or other side effects. Blood pressure goal in this patient is 140/90 or less. This was discussed with the patient. Currently blood pressure under reasonable control. Better medication for this patient are JOSUE inhibitor/ARB/beta jus etc. discussed side effects of uncontrolled hypertension and also severe hypotension. Pneumonia: Patient noted to have bilateral pneumonia. Continue antibiotic therapy. Sleep apnea syndrome: This was noted in records. Patient will benefit from further evaluation as an outpatient of this condition. Patient currently sees a stretch machine operator for this management.. 2-D echo results were discussed. It showed well-preserved LVEF. No significant stenotic or valvular regurgitation noted. Abnormal cardiac enzyme results were discussed with patient and son. It was felt that this is related to tachycardia and supply demand mismatch as well as metabolic problem. Patient will benefit from a nuclear stress test given her risk factors but this I believe can be performed as an outpatient in the absence of chest pain or other ongoing angina symptoms. - Time Time with patient: Greater than 35 minutes - CODE STATUS was discussed, patient remains full code. Surrogate decision-maker patient's son. Multiple medical problems were addressed.More than 50% of the time spent coordinating care, discussing management plans with involved caregivers. Management plans discussed with involved personnels. Medical decision making was of moderate complexity.
[2016-09-04] MEDS: TEMAZEPAM 15 MG CAPSULE PO PRN (21:43)
[2016-09-04] MEDS: GABAPENTIN 300 MG CAPSULE PO SCH (21:43)
[2016-09-04] MEDS: CYCLOBENZAPRINE HCL 10 MG TABLET PO SCH (21:44)
[2016-09-04] MEDS: EZETIMIBE 10 MG TABLET PO SCH (21:44)
[2016-09-04] MEDS: SIMVASTATIN 40 MG TABLET PO SCH (21:44)
[2016-09-05] MEDS: IPRATROPIUM BROMIDE 0.02% NEB 0.5 MG/2.5 ML AMPUL NEB SCH ×4 (02:24→20:25)
[2016-09-05] MEDS: LEVALBUTEROL HCL NEB 1.25 MG/3 ML AMPUL NEB SCH ×4 (02:24→20:29)
[2016-09-05 05:08] LABS: ABSOLUTE LYMPHOCYTES (AUTO) 1.8 10^3/uL (0.5-4.7); ABSOLUTE MONOCYTES (AUTO) 0.7 10^3/uL (0.1-1.4); BASOPHILS % (AUTO) 0.3 % (0-2); EOSINOPHILS % (AUTO) 0.2 % (0-6); HEMATOCRIT 32.5 % (36.0-47.0); HGB HCT DIFFERENCE 0.5; LYMPHOCYTES % (AUTO) 20.4 % (13-45); MEAN CORPUSCULAR HEMOGLOBIN 30.4 pg (27.0-33.4); MEAN CORPUSCULAR HGB CONC 33.8 g/dL (32.0-36.0); MEAN CORPUSCULAR VOLUME 90 fl (80-97); MONOCYTES % (AUTO) 8.7 % (3-13); RED BLOOD COUNT 3.61 10^6/uL (3.72-5.28); RED CELL DISTRIBUTION WIDTH 13.4 % (11.5-14.0); SEGMENTED NEUTROPHILS % (AUTO) 70.4 % (42-78); WHITE BLOOD COUNT 8.6 10^3/uL (4.0-10.5)
[2016-09-05] MEDS: LANSOPRAZOLE 30 MG TAB.RAP.DR PO SCH (05:22)
[2016-09-05] MEDS: LORAZEPAM INJ 2 MG/1 ML VIAL IV PRN (05:23)
[2016-09-05 05:26] LABS: ANION GAP 5 (5-19); BLOOD UREA NITROGEN 12 mg/dL (7-20); CALCIUM 9.3 mg/dL (8.4-10.2); CARBON DIOXIDE 31 mmol/L (22-30); CHLORIDE 99 mmol/L (98-107); CREATININE RESULT 0.59 mg/dL (0.52-1.25); GLUCOSE 86 mg/dL (75-110); POTASSIUM 4.3 mmol/L (3.6-5.0); SODIUM 134.9 mmol/L (137-145)
[2016-09-05] MEDS: CLOTRIMAZOLE 10 MG TROCHE PO SCH ×5 (06:56→22:22)
[2016-09-05] MEDS: BUTALB/ACETAMINOPHEN/CAFFEINE 1 TAB EACH PO PRN (07:43)
[2016-09-05] MEDS: CLOPIDOGREL BISULFATE 75 MG TABLET PO SCH (09:14)
[2016-09-05] MEDS: PREDNISONE 20 MG TABLET PO SCH (09:14)
[2016-09-05] MEDS: GUAIFENESIN 600 MG TABLET.SA PO SCH ×2 (09:14→22:22)
[2016-09-05] MEDS: METOPROLOL SUCCINATE 50 MG TAB.SR.24H PO SCH (09:15)
[2016-09-05] MEDS: HYDROCODONE/ACETAMINOPHEN 7.5-325 MG TABLET PO PRN ×2 (09:15→17:13)
[2016-09-05] MEDS: ASPIRIN 81 MG TABLET, CHEWABLE PO SCH (09:16)
[2016-09-05] MEDS: LEVOFLOXACIN 750 MG TABLET PO SCH (09:16)
[2016-09-05] MEDS: ENOXAPARIN SODIUM INJ 40 MG/0.4 ML DISP.SYRIN SUBCUT SCH (09:18)
[2016-09-05] MEDS: HYDROXYCHLOROQUINE SULFATE 200 MG TABLET PO SCH ×2 (09:19→17:12)
--- NOTE | 2016-09-05 14:19 | PDOC PROGRESS REPORT ---
Subjective Progress Note for:: 09/05/16 Subjective:: Reports she feels less short of breath today. Physical Exam Vital Signs: Temp Pulse Resp BP Pulse Ox 97.8 F 95 16 123/60 95 09/05/16 04:19 09/05/16 08:40 09/05/16 08:40 09/05/16 04:19 09/05/16 08:40 Pulse Oximeter Continuous Start: 09/02/16 14: 34 Freq: RTQ4 Status: Active Document 09/05/16 08:40 CBR (Rec: 09/05/16 09:06 CBR [email or web address]) Pulse Oximetry Assessment Oxygen Saturation (92-100) 95 Oxygen Flow Rate (L/min) 3 Oxygen Delivery Method Nasal Cannula Fraction of Inspired Oxygen (FIO2) 32 Equipment Usage Equipment in Use Continuous SpO2 Machine # 2 Intake & Output 09/04/16 09/05/16 09/06/16 06:59 06:59 06:59 Intake Total 2165 1880 420 Output Total 750 1340 Balance 1415 540 420 Weight 58.3 kg 59.6 kg General appearance: PRESENT: no acute distress Eye exam: PRESENT: conjunctiva pink. ABSENT: scleral icterus Mouth exam: PRESENT: moist, tongue midline Neck exam: ABSENT: carotid bruit, JVD, lymphadenopathy, thyromegaly Respiratory exam: PRESENT: clear to auscultation jama. ABSENT: rales, rhonchi, wheezes Cardiovascular exam: PRESENT: RRR. ABSENT: diastolic murmur, rubs, systolic murmur GI/Abdominal exam: PRESENT: normal bowel sounds, soft. ABSENT: distended, guarding, mass, organolmegaly, rebound, tenderness Extremities exam: ABSENT: calf tenderness, clubbing, pedal edema Neurological exam: PRESENT: alert, awake, oriented to person, oriented to place , oriented to time, oriented to situation, CN II-XII grossly intact. ABSENT: motor sensory deficit Psychiatric exam: PRESENT: appropriate affect Skin exam: PRESENT: dry, intact, warm. ABSENT: cyanosis, rash Results Laboratory Results: 09/05/16 04:17 09/05/16 04:17 09/05/16 09/05/16 04:17 04:17 WBC 8.6 RBC 3.61 L Hgb 11.0 L Hct 32.5 L MCV 90 MCH 30.4 MCHC 33.8 RDW 13.4 Plt Count 290 Seg Neutrophils % 70.4 Lymphocytes % 20.4 Monocytes % 8.7 Eosinophils % 0.2 Basophils % 0.3 Absolute Neutrophils 6.0 Absolute Lymphocytes 1.8 Absolute Monocytes 0.7 Absolute Eosinophils 0.0 Absolute Basophils 0.0 Sodium 134.9 L Potassium 4.3 Chloride 99 Carbon Dioxide 31 H Anion Gap 5 BUN 12 Creatinine 0.59 Est GFR ( Amer) > 60 Est GFR (Non-Af Amer) > 60 Glucose 86 Calcium 9.3 09/02/16 23:30 Sputum Gram Stain - Final 09/02/16 23:30 Sputum Sputum Culture - Final C.albicans/C.dubliniensis Normal Saadia 09/02/16 09/02/16 09/03/16 15:55 20:10 00:23 Troponin I 0.412 0.330 0.238 Impressions: Chest X-Ray 09/02/16 07:08 IMPRESSION: Blunting of the left costophrenic angle which could represent pleural reaction or a tiny effusion. Visualized lung bills are free of active infiltrates. Other findings as noted above Chest/Abdomen CTA 09/02/16 08:27 IMPRESSION: 1. Right middle lobe and lingular infiltrate consistent with pneumonia. 2. Right hilar adenopathy. This could be reactive or neoplastic. Further evaluation with bronchoscopy or PET imaging may be beneficial. 3. No pulmonary emboli. Assessment & Plan - Diagnosis (1) Sepsis Qualifiers: Sepsis type: sepsis due to unspecified organism Qualified Code(s): A41.9 - Sepsis, unspecified organism Is this a current diagnosis for this admission?: YesPlan: Patient has sepsis secondary to the pneumonia. She continues to improve clinically. (2) Pneumonia Qualifiers: Pneumonia type: due to unspecified organism Laterality: right Lung location: unspecified part of lung Qualified Code(s): J18.9 - Pneumonia, unspecified organism Is this a current diagnosis for this admission?: YesPlan: Culture so far negative. We'll continue with the Levaquin. (3) COPD with acute exacerbation Is this a current diagnosis for this admission?: YesPlan: Continue with nebulizers and steroids. (4) Elevated troponin Is this a current diagnosis for this admission?: YesPlan: Most likely secondary to her underlying sepsis. Cardiology has seen the patient in consultation (5) Depression Qualifiers: Depression Type: unspecified Qualified Code(s): F32.9 - Major depressive disorder, single episode, unspecified Is this a current diagnosis for this admission?: YesPlan: Continue with Celexa. (6) Gastritis Qualifiers: Gastritis type: unspecified gastritis Chronicity: unspecified Gastritis bleeding: presence of bleeding unspecified Qualified Code(s): K29.70 - Gastritis, unspecified, without bleeding Is this a current diagnosis for this admission?: YesPlan: Continue Prevacid. (7) Hyperglycemia Is this a current diagnosis for this admission?: YesPlan: We'll cover with sliding scale insulin. (8) Hyperlipidemia Qualifiers: Hyperlipidemia type: unspecified Qualified Code(s): E78.5 - Hyperlipidemia, unspecified Is this a current diagnosis for this admission?: YesPlan: Continue with Colestid, Zetia, Zocor. (9) Hypertension Qualifiers: Hypertension type: essential hypertension Qualified Code(s): I10 - Essential (primary) hypertension Is this a current diagnosis for this admission?: YesPlan: Patient is on Toprol. (10) Irritable bowel syndrome Qualifiers: Irritable bowel syndrome type: unspecified Qualified Code(s): K58.9 - Irritable bowel syndrome without diarrhea Is this a current diagnosis for this admission?: Yes (11) Obstructive sleep apnea Is this a current diagnosis for this admission?: YesPlan: Use CPAP as needed (12) Oral thrush Is this a current diagnosis for this admission?: YesPlan: Probably secondary to the steroids. Continue with Mycelex. (13) Headache Is this a current diagnosis for this admission?: YesPlan: We'll give Fioricet when necessary. - Time Time Spent with patient: 25-34 minutes - Inpatient Certification Medical Necessity: Need for IV Antibiotics
[2016-09-05] MEDS: CITALOPRAM HYDROBROMIDE 20 MG TABLET PO SCH (17:13)
[2016-09-05] MEDS: ROPINIROLE HCL 2 MG TABLET PO SCH (17:13)
--- NOTE | 2016-09-05 20:15 | PDOC PROGRESS REPORT ---
Subjective Progress Note for:: 09/05/16 Subjective:: Patient seems to be doing better with gradual improvement. Pt is denying any chest arm or neck discomfort. Patient denying any PND, orthopnea. Patient denied any sustained palpitations, dizziness, syncope, near syncope. Patient denying any fever chills. Patient denying any other significant discomfort. Patient is maintaining sinus rhythm. Patient still has shortness of breath. Currently wearing oxygen. Less short of breath than yesterday. Review of systems: Rest review of systems negative. Medications: Medications have been reviewed. Physical Exam Vital Signs: Temp Pulse Resp BP Pulse Ox 97.8 F 83 16 123/60 96 09/05/16 04:19 09/05/16 14:00 09/05/16 13:42 09/05/16 04:19 09/05/16 16:43 Pulse Oximeter Continuous Start: 09/02/16 14: 34 Freq: RTQ4 Status: Active Document 09/05/16 16:43 CBR (Rec: 09/05/16 16:43 CBR [email or web address]) Pulse Oximetry Assessment Oxygen Saturation (92-100) 96 Oxygen Flow Rate (L/min) 2 Oxygen Delivery Method Nasal Cannula Fraction of Inspired Oxygen (FIO2) 28 Equipment Usage Equipment Standby Continuous SpO2 Machine # 2 Intake & Output 09/04/16 09/05/16 09/06/16 06:59 06:59 06:59 Intake Total 2165 1880 1380 Output Total 750 1340 Balance 1780 649 0416 Weight 58.3 kg 59.6 kg Exam: GENERAL: well-nourished and in no acute distress. Alert and oriented x3 HEAD: Atraumatic, normocephalic. EYES: Pupils equal round and reactive to light, extraocular movements intact, sclera anicteric, conjunctiva are normal. ENT: TMs normal, nares patent, oropharynx clear without exudates. Moist mucous membranes. No oral ulcerations or bleeding gums noted NECK: supple without lymphadenopathy. Trachea is central. No cervical or axillary lymphadenopathy noted. Carotids are 2+, JVD WNL LUNGS: Respiration seems nonlabored, no significant accessory muscle action noted. Breath sounds clear to auscultation bilaterally and equal noted. No wheezes rales or rhonchi noted. No significant dullness noted on percussion. CHEST: Palpation of the chest wall shows no significant chest wall tenderness. No other significant abnormalities noted. 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 ABDOMEN: Soft, no significant tenderness appreciated, normoactive bowel sounds. No guarding, no rebound. No rigidity noted . No masses appreciated. EXTREMITIES: Pedal pulses are 1-2+, no calf tenderness noted. No clubbing or cyanosis.trace to 1+ pedal edema noted NEUROLOGICAL: Focused neurological exam showed no significant neurologic deficit. Normal speech, no focal weakness appreciated. PSYCH: Normal mood, normal affect. Judgment and insight within normal limits. SKIN: No significant ecchymosis, rash, ulcerations or signs of pruritus noted. MUSCULOSKELETAL EXAM: No significant joint swelling noted. Results Laboratory Results: 09/05/16 04:17 09/05/16 04:17 09/05/16 09/05/16 04:17 04:17 WBC 8.6 RBC 3.61 L Hgb 11.0 L Hct 32.5 L MCV 90 MCH 30.4 MCHC 33.8 RDW 13.4 Plt Count 290 Seg Neutrophils % 70.4 Lymphocytes % 20.4 Monocytes % 8.7 Eosinophils % 0.2 Basophils % 0.3 Absolute Neutrophils 6.0 Absolute Lymphocytes 1.8 Absolute Monocytes 0.7 Absolute Eosinophils 0.0 Absolute Basophils 0.0 Sodium 134.9 L Potassium 4.3 Chloride 99 Carbon Dioxide 31 H Anion Gap 5 BUN 12 Creatinine 0.59 Est GFR ( Amer) > 60 Est GFR (Non-Af Amer) > 60 Glucose 86 Calcium 9.3 09/02/16 23:30 Sputum Gram Stain - Final 09/02/16 23:30 Sputum Sputum Culture - Final C.albicans/C.dubliniensis Normal Saadia 09/02/16 09/02/16 09/03/16 15:55 20:10 00:23 Troponin I 0.412 0.330 0.238 Impressions: Chest X-Ray 09/02/16 07:08 IMPRESSION: Blunting of the left costophrenic angle which could represent pleural reaction or a tiny effusion. Visualized lung bills are free of active infiltrates. Other findings as noted above Chest/Abdomen CTA 09/02/16 08:27 IMPRESSION: 1. Right middle lobe and lingular infiltrate consistent with pneumonia. 2. Right hilar adenopathy. This could be reactive or neoplastic. Further evaluation with bronchoscopy or PET imaging may be beneficial. 3. No pulmonary emboli. Assessment & Plan - Diagnosis (1) Elevated troponin Is this a current diagnosis for this admission?: Yes (2) Respiratory failure Qualifiers: Chronicity: acute on chronic Respiratory failure complication: hypercapnia Qualified Code(s): J96.22 - Acute and chronic respiratory failure with hypercapnia Is this a current diagnosis for this admission?: Yes (3) COPD with acute exacerbation Is this a current diagnosis for this admission?: Yes (4) Hyperlipidemia Qualifiers: Hyperlipidemia type: unspecified Qualified Code(s): E78.5 - Hyperlipidemia, unspecified Is this a current diagnosis for this admission?: Yes (5) Hypertension Qualifiers: Hypertension type: essential hypertension Qualified Code(s): I10 - Essential (primary) hypertension Is this a current diagnosis for this admission?: Yes (6) Pneumonia Qualifiers: Pneumonia type: due to unspecified organism Laterality: right Lung location: unspecified part of lung Qualified Code(s): J18.9 - Pneumonia, unspecified organism Is this a current diagnosis for this admission?: Yes (7) Obstructive sleep apnea Is this a current diagnosis for this admission?: Yes - Notes Notes: Troponin I elevation: This is in the non-STEMI range. This is type II myocardial infarction. This is brought on by metabolic problems and also sinus tachycardia. Related to supply demand mismatch. 2-D echo showed preserved LVEF. No significant valvular regurgitation or stenosis noted. Recommend medical management for probable underlying CAD. Patient will benefit from a stress test but that this will be performed as an outpatient Respiratory failure: Patient has significant COPD and also has pneumonia. Agree with current management plans. Patient advised to quit smoking. COPD with acute exacerbation: Continue bronchodilator therapy and other management plans as needed such as steroids. Hyperlipidemia: LDL goal is less than 70. Recommend statin therapy at least intermediate or high dose, of high potency status. Periodic lipid panel and liver panel is indicated. Patient to report any significant muscle discomfort or other side effects. Blood pressure goal in this patient is 140/90 or less. This was discussed with the patient. Currently blood pressure under reasonable control. Better medication for this patient are JOSUE inhibitor/ARB/beta jus etc. discussed side effects of uncontrolled hypertension and also severe hypotension. Pneumonia: Patient noted to have bilateral pneumonia. Continue antibiotic therapy. Sleep apnea syndrome: This was noted in records. Patient will benefit from further evaluation as an outpatient of this condition. Patient currently sees a portable irrigation operator for this management.. Patient will benefit from a nuclear stress test given her risk factors but this I believe can be performed as an outpatient in the absence of chest pain or other ongoing angina symptoms. - Time Time with patient: 15-25 minutes - CODE STATUS was discussed, patient remains full code. Surrogate decision-maker unchanged. Multiple medical problems were addressed.More than 50% of the time spent coordinating care, discussing management plans with involved caregivers. Management plans discussed with involved personnels. Medical decision making was of moderate complexity. Medications reviewed and adjusted accordingly: Yes
[2016-09-05] MEDS: GABAPENTIN 300 MG CAPSULE PO SCH (22:22)
[2016-09-05] MEDS: CYCLOBENZAPRINE HCL 10 MG TABLET PO SCH (22:22)
[2016-09-05] MEDS: EZETIMIBE 10 MG TABLET PO SCH (22:23)
[2016-09-05] MEDS: SIMVASTATIN 40 MG TABLET PO SCH (22:23)
[2016-09-05] MEDS: TEMAZEPAM 15 MG CAPSULE PO PRN (22:23)
[2016-09-06] MEDS: IPRATROPIUM BROMIDE 0.02% NEB 0.5 MG/2.5 ML AMPUL NEB SCH ×4 (01:53→20:15)
[2016-09-06] MEDS: LEVALBUTEROL HCL NEB 1.25 MG/3 ML AMPUL NEB SCH ×4 (01:53→20:15)
[2016-09-06] MEDS: HYDROCODONE/ACETAMINOPHEN 7.5-325 MG TABLET PO PRN ×2 (02:29→17:20)
[2016-09-06] MEDS: NORMAL SALINE 1000 ML 1,000 ML IV PRN (02:29)
[2016-09-06] MEDS: LANSOPRAZOLE 30 MG TAB.RAP.DR PO SCH (05:21)
[2016-09-06] MEDS: ENOXAPARIN SODIUM INJ 40 MG/0.4 ML DISP.SYRIN SUBCUT SCH (08:03)
[2016-09-06] MEDS: CLOTRIMAZOLE 10 MG TROCHE PO SCH ×5 (08:03→19:59)
[2016-09-06] MEDS: ASPIRIN 81 MG TABLET, CHEWABLE PO SCH (09:30)
[2016-09-06] MEDS: HYDROXYCHLOROQUINE SULFATE 200 MG TABLET PO SCH ×2 (09:30→17:19)
[2016-09-06] MEDS: CLOPIDOGREL BISULFATE 75 MG TABLET PO SCH (09:30)
[2016-09-06] MEDS: PREDNISONE 20 MG TABLET PO SCH (09:30)
[2016-09-06] MEDS: LEVOFLOXACIN 750 MG TABLET PO SCH (09:30)
[2016-09-06] MEDS: METOPROLOL SUCCINATE 50 MG TAB.SR.24H PO SCH (09:30)
[2016-09-06] MEDS: GUAIFENESIN 600 MG TABLET.SA PO SCH ×2 (09:30→21:59)
[2016-09-06] MEDS: LORAZEPAM INJ 2 MG/1 ML VIAL IV PRN (13:12)
--- NOTE | 2016-09-06 14:04 | PDOC PROGRESS REPORT ---
Subjective Progress Note for:: 09/06/16 Subjective:: Denies any complaints. Physical Exam Vital Signs: Temp Pulse Resp BP Pulse Ox 98.4 F 84 18 129/65 H 95 09/06/16 10:00 09/06/16 10:00 09/06/16 10:00 09/06/16 10:00 09/06/16 11:36 Pulse Oximeter Continuous Start: 09/02/16 14: 34 Freq: RTQ4 Status: Active Document 09/06/16 11:36 HCR (Rec: 09/06/16 11:36 HCR [email or web address]) Pulse Oximetry Assessment Oxygen Saturation (92-100) 95 Oxygen Flow Rate (L/min) 2 Oxygen Delivery Method Nasal Cannula Equipment Usage Equipment in Use Continuous SpO2 Machine # 2 Intake & Output 09/05/16 09/06/16 09/07/16 06:59 06:59 06:59 Intake Total 1880 2560 Output Total 1340 1500 Balance 540 1060 Weight 59.6 kg 59.5 kg General appearance: PRESENT: no acute distress Eye exam: PRESENT: conjunctiva pink. ABSENT: scleral icterus Ear exam: PRESENT: normal external ear exam Mouth exam: PRESENT: moist, tongue midline Neck exam: ABSENT: carotid bruit, JVD, lymphadenopathy, thyromegaly Respiratory exam: PRESENT: clear to auscultation jama. ABSENT: rales, rhonchi, wheezes Cardiovascular exam: PRESENT: RRR. ABSENT: diastolic murmur, rubs, systolic murmur GI/Abdominal exam: PRESENT: normal bowel sounds, soft. ABSENT: distended, guarding, mass, organolmegaly, rebound, tenderness Extremities exam: ABSENT: calf tenderness, clubbing, pedal edema Neurological exam: PRESENT: alert, awake, oriented to person, oriented to place , oriented to time, oriented to situation, CN II-XII grossly intact. ABSENT: motor sensory deficit Psychiatric exam: PRESENT: appropriate affect Skin exam: PRESENT: dry, intact, warm. ABSENT: cyanosis, rash Results Laboratory Results: 09/05/16 04:17 09/05/16 04:17 09/02/16 23:30 Sputum Gram Stain - Final 09/02/16 23:30 Sputum Sputum Culture - Final C.albicans/C.dubliniensis Normal Saadia 09/02/16 09/02/16 09/03/16 15:55 20:10 00:23 Troponin I 0.412 0.330 0.238 Impressions: Chest X-Ray 09/02/16 07:08 IMPRESSION: Blunting of the left costophrenic angle which could represent pleural reaction or a tiny effusion. Visualized lung bills are free of active infiltrates. Other findings as noted above Chest/Abdomen CTA 09/02/16 08:27 IMPRESSION: 1. Right middle lobe and lingular infiltrate consistent with pneumonia. 2. Right hilar adenopathy. This could be reactive or neoplastic. Further evaluation with bronchoscopy or PET imaging may be beneficial. 3. No pulmonary emboli. Assessment & Plan - Diagnosis (1) Sepsis Qualifiers: Sepsis type: sepsis due to unspecified organism Qualified Code(s): A41.9 - Sepsis, unspecified organism Is this a current diagnosis for this admission?: YesPlan: Patient has sepsis secondary to the pneumonia. She continues to improve clinically. (2) Pneumonia Qualifiers: Pneumonia type: due to unspecified organism Laterality: right Lung location: unspecified part of lung Qualified Code(s): J18.9 - Pneumonia, unspecified organism Is this a current diagnosis for this admission?: YesPlan: Culture so far negative. We'll continue with the Levaquin. (3) COPD with acute exacerbation Is this a current diagnosis for this admission?: YesPlan: Continue with nebulizers and steroids. (4) Elevated troponin Is this a current diagnosis for this admission?: YesPlan: Most likely secondary to her underlying sepsis. Cardiology has seen the patient in consultation (5) Depression Qualifiers: Depression Type: unspecified Qualified Code(s): F32.9 - Major depressive disorder, single episode, unspecified Is this a current diagnosis for this admission?: YesPlan: Continue with Celexa. (6) Gastritis Qualifiers: Gastritis type: unspecified gastritis Chronicity: unspecified Gastritis bleeding: presence of bleeding unspecified Qualified Code(s): K29.70 - Gastritis, unspecified, without bleeding Is this a current diagnosis for this admission?: YesPlan: Continue Prevacid. (7) Hyperglycemia Is this a current diagnosis for this admission?: YesPlan: We'll cover with sliding scale insulin. (8) Hyperlipidemia Qualifiers: Hyperlipidemia type: unspecified Qualified Code(s): E78.5 - Hyperlipidemia, unspecified Is this a current diagnosis for this admission?: YesPlan: Continue with Colestid, Zetia, Zocor. (9) Hypertension Qualifiers: Hypertension type: essential hypertension Qualified Code(s): I10 - Essential (primary) hypertension Is this a current diagnosis for this admission?: YesPlan: Patient is on Toprol. (10) Irritable bowel syndrome Qualifiers: Irritable bowel syndrome type: unspecified Qualified Code(s): K58.9 - Irritable bowel syndrome without diarrhea Is this a current diagnosis for this admission?: Yes (11) Obstructive sleep apnea Is this a current diagnosis for this admission?: YesPlan: Use CPAP as needed (12) Oral thrush Is this a current diagnosis for this admission?: YesPlan: Probably secondary to the steroids. Continue with Mycelex. (13) Headache Is this a current diagnosis for this admission?: YesPlan: We'll give Fioricet when necessary. - Time Time Spent with patient: 25-34 minutes - Inpatient Certification Medical Necessity: Need Close Monitoring Due to Risk of Patient Decompensation
[2016-09-06] MEDS: ROPINIROLE HCL 2 MG TABLET PO SCH (17:19)
[2016-09-06] MEDS: CITALOPRAM HYDROBROMIDE 20 MG TABLET PO SCH (17:19)
--- NOTE | 2016-09-06 19:57 | PDOC PROGRESS REPORT ---
Subjective Progress Note for:: 09/06/16 Subjective:: Patient seems to be doing better with gradual improvement. Pt is denying any chest arm or neck discomfort. Patient denying any PND, orthopnea. Patient denied any sustained palpitations, dizziness, syncope, near syncope. Patient denying any fever chills. Patient denying any other significant discomfort. Patient is maintaining sinus rhythm. Patient dyspnea has improved. Currently wearing oxygen. Less short of breath than yesterday. Review of systems: Rest review of systems negative. Medications: Medications have been reviewed. Physical Exam Vital Signs: Temp Pulse Resp BP Pulse Ox 98.4 F 92 18 127/62 H 94 09/06/16 12:20 09/06/16 14:00 09/06/16 13:37 09/06/16 12:20 09/06/16 17:09 Pulse Oximeter Continuous Start: 09/02/16 14: 34 Freq: RTQ4 Status: Active Document 09/06/16 17:09 [facility] (Rec: 09/06/16 17:09 [facility] [email or web address]) Pulse Oximetry Assessment Oxygen Saturation (92-100) 94 Oxygen Flow Rate (L/min) 1 Oxygen Delivery Method Nasal Cannula Equipment Usage Equipment in Use Continuous SpO2 Machine # 2 Intake & Output 09/05/16 09/06/16 09/07/16 06:59 06:59 06:59 Intake Total 1880 2560 1260 Output Total 1340 1500 200 Balance 540 1060 1060 Weight 59.6 kg 59.5 kg Exam: GENERAL: well-nourished and in no acute distress. Alert and oriented x3 HEAD: Atraumatic, normocephalic. EYES: Pupils equal round and reactive to light, extraocular movements intact, sclera anicteric, conjunctiva are normal. ENT: TMs normal, nares patent, oropharynx clear without exudates. Moist mucous membranes. No oral ulcerations or bleeding gums noted NECK: supple without lymphadenopathy. Trachea is central. No cervical or axillary lymphadenopathy noted. Carotids are 2+, JVD WNL LUNGS: Respiration seems nonlabored, no significant accessory muscle action noted. Breath sounds clear to auscultation bilaterally and equal noted. No wheezes rales or rhonchi noted. No significant dullness noted on percussion. CHEST: Palpation of the chest wall shows no significant chest wall tenderness. No other significant abnormalities noted. 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 ABDOMEN: Soft, no significant tenderness appreciated, normoactive bowel sounds. No guarding, no rebound. No rigidity noted . No masses appreciated. EXTREMITIES: Pedal pulses are 1-2+, no calf tenderness noted. No clubbing or cyanosis.trace to 1+ pedal edema noted NEUROLOGICAL: Focused neurological exam showed no significant neurologic deficit. Normal speech, no focal weakness appreciated. PSYCH: Normal mood, normal affect. Judgment and insight within normal limits. SKIN: No significant ecchymosis, rash, ulcerations or signs of pruritus noted. MUSCULOSKELETAL EXAM: No significant joint swelling noted. Results Laboratory Results: 09/05/16 04:17 09/05/16 04:17 09/02/16 09/02/16 09/03/16 15:55 20:10 00:23 Troponin I 0.412 0.330 0.238 Impressions: Chest X-Ray 09/02/16 07:08 IMPRESSION: Blunting of the left costophrenic angle which could represent pleural reaction or a tiny effusion. Visualized lung bills are free of active infiltrates. Other findings as noted above Chest/Abdomen CTA 09/02/16 08:27 IMPRESSION: 1. Right middle lobe and lingular infiltrate consistent with pneumonia. 2. Right hilar adenopathy. This could be reactive or neoplastic. Further evaluation with bronchoscopy or PET imaging may be beneficial. 3. No pulmonary emboli. Assessment & Plan - Diagnosis (1) Elevated troponin Is this a current diagnosis for this admission?: Yes (2) Respiratory failure Qualifiers: Chronicity: acute on chronic Respiratory failure complication: hypercapnia Qualified Code(s): J96.22 - Acute and chronic respiratory failure with hypercapnia Is this a current diagnosis for this admission?: Yes (3) COPD with acute exacerbation Is this a current diagnosis for this admission?: Yes (4) Hyperlipidemia Qualifiers: Hyperlipidemia type: unspecified Qualified Code(s): E78.5 - Hyperlipidemia, unspecified Is this a current diagnosis for this admission?: Yes (5) Hypertension Qualifiers: Hypertension type: essential hypertension Qualified Code(s): I10 - Essential (primary) hypertension Is this a current diagnosis for this admission?: Yes (6) Pneumonia Qualifiers: Pneumonia type: due to unspecified organism Laterality: right Lung location: unspecified part of lung Qualified Code(s): J18.9 - Pneumonia, unspecified organism Is this a current diagnosis for this admission?: Yes (7) Obstructive sleep apnea Is this a current diagnosis for this admission?: Yes - Notes Notes: Patient is gradually getting better but still quite debilitated and has not ambulated much. Patient will try to ambulate today. Adrian catheter to be taken out. Patient's medical regimen reviewed. Patient currently on a stable medical regimen. Patient should follow-up with her sales secretary and a stress test scheduled either prior to discharge or as an outpatient. Patient currently is stable from Cardec standpoint. Pulmonary status improving. Will continue to follow patient. Currently patient stable. - Time Time with patient: 15-25 minutes - CODE STATUS was discussed, patient remains full code. Surrogate decision-maker unchanged. Multiple medical problems were addressed.More than 50% of the time spent coordinating care, discussing management plans with involved caregivers. Management plans discussed with involved personnels. Medical decision making was of moderate complexity.
[2016-09-06] MEDS: BUTALB/ACETAMINOPHEN/CAFFEINE 1 TAB EACH PO PRN (19:59)
[2016-09-06] MEDS: SIMVASTATIN 40 MG TABLET PO SCH (21:59)
[2016-09-06] MEDS: CYCLOBENZAPRINE HCL 10 MG TABLET PO SCH (21:59)
[2016-09-06] MEDS: GABAPENTIN 300 MG CAPSULE PO SCH (21:59)
[2016-09-06] MEDS: EZETIMIBE 10 MG TABLET PO SCH (21:59)
[2016-09-06] MEDS: TEMAZEPAM 15 MG CAPSULE PO PRN (21:59)
[2016-09-07] MEDS: HYDROCODONE/ACETAMINOPHEN 7.5-325 MG TABLET PO PRN ×2 (00:30→17:18)
[2016-09-07] MEDS: LEVALBUTEROL HCL NEB 1.25 MG/3 ML AMPUL NEB SCH ×4 (02:26→20:24)
[2016-09-07] MEDS: IPRATROPIUM BROMIDE 0.02% NEB 0.5 MG/2.5 ML AMPUL NEB SCH ×4 (02:26→20:24)
[2016-09-07] MEDS: BUTALB/ACETAMINOPHEN/CAFFEINE 1 TAB EACH PO PRN ×2 (02:57→22:01)
[2016-09-07 05:53] LABS: ANION GAP 9 (5-19); BLOOD UREA NITROGEN 10 mg/dL (7-20); CALCIUM 8.5 mg/dL (8.4-10.2); CARBON DIOXIDE 28 mmol/L (22-30); CHLORIDE 102 mmol/L (98-107); CREATININE RESULT 0.57 mg/dL (0.52-1.25); GLUCOSE 82 mg/dL (75-110); POTASSIUM 3.8 mmol/L (3.6-5.0)
[2016-09-07 05:54] LABS: HEMATOCRIT 31.9 % (36.0-47.0); HEMOGLOBIN 10.9 g/dL (12.0-15.5); HGB HCT DIFFERENCE 0.8; MEAN CORPUSCULAR HEMOGLOBIN 30.6 pg (27.0-33.4); MEAN CORPUSCULAR HGB CONC 34.1 g/dL (32.0-36.0); MEAN CORPUSCULAR VOLUME 90 fl (80-97); RED BLOOD COUNT 3.55 10^6/uL (3.72-5.28); RED CELL DISTRIBUTION WIDTH 13.5 % (11.5-14.0); WHITE BLOOD COUNT 8.6 10^3/uL (4.0-10.5)
[2016-09-07 06:18] LABS: BASOPHILS % (MANUAL) 0 % (0-2); EOSINOPHILS % (MANUAL) 1 % (0-6); LYMPHOCYTES % (MANUAL) 25 % (13-45); TOTAL CELLS COUNTED 100
[2016-09-07 06:19] LABS: RBC MORPHOLOGY COMMENT NORMO-CYTIC/CHROMIC
[2016-09-07] MEDS: LANSOPRAZOLE 30 MG TAB.RAP.DR PO SCH (06:33)
[2016-09-07] MEDS: NORMAL SALINE 1000 ML 1,000 ML IV PRN (06:35)
[2016-09-07] MEDS: LORAZEPAM INJ 2 MG/1 ML VIAL IV PRN ×3 (07:39→20:29)
[2016-09-07] MEDS: CLOTRIMAZOLE 10 MG TROCHE PO SCH ×5 (07:39→19:06)
[2016-09-07] MEDS: ENOXAPARIN SODIUM INJ 40 MG/0.4 ML DISP.SYRIN SUBCUT SCH (07:42)
[2016-09-07] MEDS: PREDNISONE 20 MG TABLET PO SCH (10:17)
[2016-09-07] MEDS: LEVOFLOXACIN 750 MG TABLET PO SCH (10:17)
[2016-09-07] MEDS: GUAIFENESIN 600 MG TABLET.SA PO SCH ×2 (10:17→21:41)
[2016-09-07] MEDS: HYDROXYCHLOROQUINE SULFATE 200 MG TABLET PO SCH ×2 (10:18→17:07)
[2016-09-07] MEDS: ASPIRIN 81 MG TABLET, CHEWABLE PO SCH (10:18)
[2016-09-07] MEDS: METOPROLOL SUCCINATE 50 MG TAB.SR.24H PO SCH (10:18)
[2016-09-07] MEDS: CLOPIDOGREL BISULFATE 75 MG TABLET PO SCH (10:19)
--- NOTE | 2016-09-07 14:48 | PDOC PROGRESS REPORT ---
Subjective Progress Note for:: 09/07/16 Subjective:: Denies any complaints. Physical Exam Vital Signs: Temp Pulse Resp BP Pulse Ox 97.8 F 83 17 141/73 H 98 09/07/16 12:16 09/07/16 12:16 09/07/16 12:16 09/07/16 12:16 09/07/16 12:16 Pulse Oximeter Continuous Start: 09/02/16 14: 34 Freq: RTQ4 Status: Active Document 09/07/16 07:53 [facility] (Rec: 09/07/16 09:30 [facility] [email or web address]) Pulse Oximetry Assessment Oxygen Saturation (92-100) 92 Oxygen Flow Rate (L/min) 3 Oxygen Delivery Method Nasal Cannula Equipment Usage Equipment in Use Continuous SpO2 Machine # 2 Intake & Output 09/06/16 09/07/16 09/08/16 06:59 06:59 06:59 Intake Total 2560 2280 Output Total 1500 720 Balance 1060 1560 Weight 59.5 kg 59.9 kg General appearance: PRESENT: no acute distress Eye exam: PRESENT: conjunctiva pink. ABSENT: scleral icterus Mouth exam: PRESENT: moist, tongue midline Neck exam: ABSENT: JVD Respiratory exam: PRESENT: clear to auscultation jama. ABSENT: rales, rhonchi, wheezes Cardiovascular exam: PRESENT: RRR. ABSENT: diastolic murmur, rubs, systolic murmur GI/Abdominal exam: PRESENT: normal bowel sounds, soft. ABSENT: distended, guarding, mass, organolmegaly, rebound, tenderness Extremities exam: ABSENT: calf tenderness, clubbing, pedal edema Neurological exam: PRESENT: alert, awake, oriented to person, oriented to place , oriented to time, oriented to situation, CN II-XII grossly intact. ABSENT: motor sensory deficit Psychiatric exam: PRESENT: appropriate affect Skin exam: PRESENT: dry, intact, warm. ABSENT: cyanosis, rash Results Laboratory Results: 09/07/16 05:25 09/07/16 05:25 09/07/16 09/07/16 05:25 05:25 WBC 8.6 RBC 3.55 L Hgb 10.9 L Hct 31.9 L MCV 90 MCH 30.6 MCHC 34.1 RDW 13.5 Plt Count 267 Seg Neutrophils % Not Reportable Lymphocytes % Not Reportable Monocytes % Not Reportable Eosinophils % Not Reportable Basophils % Not Reportable Absolute Neutrophils Not Reportable Absolute Lymphocytes Not Reportable Absolute Monocytes Not Reportable Absolute Eosinophils Not Reportable Absolute Basophils Not Reportable Sodium 139.0 Potassium 3.8 Chloride 102 Carbon Dioxide 28 Anion Gap 9 BUN 10 Creatinine 0.57 Est GFR ( Amer) > 60 Est GFR (Non-Af Amer) > 60 Glucose 82 Calcium 8.5 09/02/16 09/02/16 09/03/16 15:55 20:10 00:23 Troponin I 0.412 0.330 0.238 Impressions: Chest X-Ray 09/02/16 07:08 IMPRESSION: Blunting of the left costophrenic angle which could represent pleural reaction or a tiny effusion. Visualized lung bills are free of active infiltrates. Other findings as noted above Chest/Abdomen CTA 09/02/16 08:27 IMPRESSION: 1. Right middle lobe and lingular infiltrate consistent with pneumonia. 2. Right hilar adenopathy. This could be reactive or neoplastic. Further evaluation with bronchoscopy or PET imaging may be beneficial. 3. No pulmonary emboli. Assessment & Plan - Diagnosis (1) Sepsis Qualifiers: Sepsis type: sepsis due to unspecified organism Qualified Code(s): A41.9 - Sepsis, unspecified organism Is this a current diagnosis for this admission?: YesPlan: Patient has sepsis secondary to the pneumonia. She continues to improve clinically. (2) Pneumonia Qualifiers: Pneumonia type: due to unspecified organism Laterality: right Lung location: unspecified part of lung Qualified Code(s): J18.9 - Pneumonia, unspecified organism Is this a current diagnosis for this admission?: YesPlan: Culture so far negative. We'll continue with the Levaquin. (3) COPD with acute exacerbation Is this a current diagnosis for this admission?: YesPlan: Continue with nebulizers and steroids. Patient is improving and will set up for home oxygen for her to go home tomorrow. (4) Elevated troponin Is this a current diagnosis for this admission?: YesPlan: Most likely secondary to her underlying sepsis. Cardiology has seen the patient in consultation (5) Depression Qualifiers: Depression Type: unspecified Qualified Code(s): F32.9 - Major depressive disorder, single episode, unspecified Is this a current diagnosis for this admission?: YesPlan: Continue with Celexa. (6) Gastritis Qualifiers: Gastritis type: unspecified gastritis Chronicity: unspecified Gastritis bleeding: presence of bleeding unspecified Qualified Code(s): K29.70 - Gastritis, unspecified, without bleeding Is this a current diagnosis for this admission?: YesPlan: Continue Prevacid. (7) Hyperglycemia Is this a current diagnosis for this admission?: YesPlan: We'll cover with sliding scale insulin. (8) Hyperlipidemia Qualifiers: Hyperlipidemia type: unspecified Qualified Code(s): E78.5 - Hyperlipidemia, unspecified Is this a current diagnosis for this admission?: YesPlan: Continue with Colestid, Zetia, Zocor. (9) Hypertension Qualifiers: Hypertension type: essential hypertension Qualified Code(s): I10 - Essential (primary) hypertension Is this a current diagnosis for this admission?: YesPlan: Patient is on Toprol. (10) Irritable bowel syndrome Qualifiers: Irritable bowel syndrome type: unspecified Qualified Code(s): K58.9 - Irritable bowel syndrome without diarrhea Is this a current diagnosis for this admission?: Yes (11) Obstructive sleep apnea Is this a current diagnosis for this admission?: YesPlan: Use CPAP as needed (12) Oral thrush Is this a current diagnosis for this admission?: YesPlan: Probably secondary to the steroids. Continue with Mycelex. (13) Headache Is this a current diagnosis for this admission?: YesPlan: We'll give Fioricet when necessary. - Time Time Spent with patient: 25-34 minutes - Inpatient Certification Medical Necessity: Need Close Monitoring Due to Risk of Patient Decompensation
--- NOTE | 2016-09-07 14:55 | PDOC PROGRESS REPORT ---
Subjective Progress Note for:: 09/07/16 Subjective:: Patient seems to be doing better with gradual improvement. Pt is denying any chest arm or neck discomfort. Patient denying any PND, orthopnea. Patient denied any sustained palpitations, dizziness, syncope, near syncope. Patient denying any fever chills. Patient denying any other significant discomfort. Patient is maintaining sinus rhythm. Patient dyspnea has improved. Currently wearing oxygen. Less short of breath than yesterday and progressively getting better. Adrian catheter is out. Patient encouraged to ambulate more. Today I discontinued IV fluid as patient seems to be having good by mouth intake.. Review of systems: Rest review of systems negative. Medications: Medications have been reviewed. Physical Exam Vital Signs: Temp Pulse Resp BP Pulse Ox 97.8 F 83 17 141/73 H 98 09/07/16 12:16 09/07/16 12:16 09/07/16 12:16 09/07/16 12:16 09/07/16 12:16 Pulse Oximeter Continuous Start: 09/02/16 14: 34 Freq: RTQ4 Status: Active Document 09/07/16 07:53 [facility] (Rec: 09/07/16 09:30 [facility] [email or web address]) Pulse Oximetry Assessment Oxygen Saturation (92-100) 92 Oxygen Flow Rate (L/min) 3 Oxygen Delivery Method Nasal Cannula Equipment Usage Equipment in Use Continuous SpO2 Machine # 2 Intake & Output 09/06/16 09/07/16 09/08/16 06:59 06:59 06:59 Intake Total 2560 2280 640 Output Total 1500 720 Balance 1060 1560 640 Weight 59.5 kg 59.9 kg Exam: GENERAL: well-nourished and in no acute distress. Alert and oriented x3 HEAD: Atraumatic, normocephalic. EYES: Pupils equal round and reactive to light, extraocular movements intact, sclera anicteric, conjunctiva are normal. ENT: TMs normal, nares patent, oropharynx clear without exudates. Moist mucous membranes. No oral ulcerations or bleeding gums noted NECK: supple without lymphadenopathy. Trachea is central. No cervical or axillary lymphadenopathy noted. Carotids are 2+, JVD WNL LUNGS: Respiration seems nonlabored, no significant accessory muscle action noted. Few bilateral basal wheezes rales or rhonchi noted. No significant dullness noted on percussion. CHEST: Palpation of the chest wall shows no significant chest wall tenderness. No other significant abnormalities noted. 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 ABDOMEN: Soft, no significant tenderness appreciated, normoactive bowel sounds. No guarding, no rebound. No rigidity noted . No masses appreciated. EXTREMITIES: Pedal pulses are 1-2+, no calf tenderness noted. No clubbing or cyanosis.trace to 1+ pedal edema noted NEUROLOGICAL: Focused neurological exam showed no significant neurologic deficit. Normal speech, no focal weakness appreciated. PSYCH: Normal mood, normal affect. Judgment and insight within normal limits. SKIN: No significant ecchymosis, rash, ulcerations or signs of pruritus noted. MUSCULOSKELETAL EXAM: No significant joint swelling noted. Results Laboratory Results: 09/07/16 05:25 09/07/16 05:25 09/07/16 09/07/16 05:25 05:25 WBC 8.6 RBC 3.55 L Hgb 10.9 L Hct 31.9 L MCV 90 MCH 30.6 MCHC 34.1 RDW 13.5 Plt Count 267 Seg Neutrophils % Not Reportable Lymphocytes % Not Reportable Monocytes % Not Reportable Eosinophils % Not Reportable Basophils % Not Reportable Absolute Neutrophils Not Reportable Absolute Lymphocytes Not Reportable Absolute Monocytes Not Reportable Absolute Eosinophils Not Reportable Absolute Basophils Not Reportable Sodium 139.0 Potassium 3.8 Chloride 102 Carbon Dioxide 28 Anion Gap 9 BUN 10 Creatinine 0.57 Est GFR ( Amer) > 60 Est GFR (Non-Af Amer) > 60 Glucose 82 Calcium 8.5 09/02/16 09/02/16 09/03/16 15:55 20:10 00:23 Troponin I 0.412 0.330 0.238 Impressions: Chest X-Ray 09/02/16 07:08 IMPRESSION: Blunting of the left costophrenic angle which could represent pleural reaction or a tiny effusion. Visualized lung bills are free of active infiltrates. Other findings as noted above Chest/Abdomen CTA 09/02/16 08:27 IMPRESSION: 1. Right middle lobe and lingular infiltrate consistent with pneumonia. 2. Right hilar adenopathy. This could be reactive or neoplastic. Further evaluation with bronchoscopy or PET imaging may be beneficial. 3. No pulmonary emboli. Assessment & Plan - Diagnosis (1) Elevated troponin Is this a current diagnosis for this admission?: Yes (2) Respiratory failure Qualifiers: Chronicity: acute on chronic Respiratory failure complication: hypercapnia Qualified Code(s): J96.22 - Acute and chronic respiratory failure with hypercapnia Is this a current diagnosis for this admission?: Yes (3) COPD with acute exacerbation Is this a current diagnosis for this admission?: Yes (4) Hyperlipidemia Qualifiers: Hyperlipidemia type: unspecified Qualified Code(s): E78.5 - Hyperlipidemia, unspecified Is this a current diagnosis for this admission?: Yes (5) Hypertension Qualifiers: Hypertension type: essential hypertension Qualified Code(s): I10 - Essential (primary) hypertension Is this a current diagnosis for this admission?: Yes (6) Pneumonia Qualifiers: Pneumonia type: due to unspecified organism Laterality: right Lung location: unspecified part of lung Qualified Code(s): J18.9 - Pneumonia, unspecified organism Is this a current diagnosis for this admission?: Yes (7) Obstructive sleep apnea Is this a current diagnosis for this admission?: Yes - Notes Notes: Troponin I elevation: This is in the non-STEMI range. This is type II myocardial infarction. This is brought on by metabolic problems and also sinus tachycardia. Related to supply demand mismatch. 2-D echo showed preserved LVEF. No significant valvular regurgitation or stenosis noted. Recommend medical management for probable underlying CAD. Will recommend a stress test as an outpatient and close cardiology follow-up. Respiratory failure: Patient has significant COPD and also has pneumonia. Agree with current management plans. Patient advised to quit smoking. In process of tapering steroids. COPD with acute exacerbation: Continue bronchodilator therapy and other management plans as needed such as steroids. Hyperlipidemia: LDL goal is less than 70. Recommend statin therapy at least intermediate or high dose, of high potency status. Periodic lipid panel and liver panel is indicated. Patient to report any significant muscle discomfort or other side effects. Blood pressure goal in this patient is 140/90 or less. This was discussed with the patient. Currently blood pressure under reasonable control. Better medication for this patient are JOSUE inhibitor/ARB/beta jus etc. discussed side effects of uncontrolled hypertension and also severe hypotension. Pneumonia: Patient noted to have bilateral pneumonia. Continue antibiotic therapy. Sleep apnea syndrome: This was noted in records. Patient will benefit from further evaluation as an outpatient of this condition. Patient currently sees a semiconductor wafers marker for this management.. 2-D echo results were discussed. It showed well-preserved LVEF. No significant stenotic or valvular regurgitation noted. Patient lab work was reviewed. She was noted to have elevated BNP level. Patient currently getting IV fluids. Her by mouth intake is satisfactory. Have therefore discontinued IV fluids. Patient did have positive hepatojugular reflux on exam. A BNP level has been ordered for tomorrow. - Time Time with patient: 15-25 minutes - CODE STATUS was discussed, patient remains full code. Surrogate decision-maker unchanged. Multiple medical problems were addressed.More than 50% of the time spent coordinating care, discussing management plans with involved caregivers. Management plans discussed with involved personnels. Medical decision making was of moderate complexity.
[2016-09-07] MEDS: CITALOPRAM HYDROBROMIDE 20 MG TABLET PO SCH (17:07)
[2016-09-07] MEDS: ROPINIROLE HCL 2 MG TABLET PO SCH (17:07)
[2016-09-07] MEDS: EZETIMIBE 10 MG TABLET PO SCH (21:41)
[2016-09-07] MEDS: SIMVASTATIN 40 MG TABLET PO SCH (21:41)
[2016-09-07] MEDS: GABAPENTIN 300 MG CAPSULE PO SCH (21:41)
[2016-09-07] MEDS: CYCLOBENZAPRINE HCL 10 MG TABLET PO SCH (21:41)
[2016-09-07] MEDS: TEMAZEPAM 15 MG CAPSULE PO PRN (21:45)
[2016-09-08] MEDS: HYDROCODONE/ACETAMINOPHEN 7.5-325 MG TABLET PO PRN ×2 (02:06→08:01)
[2016-09-08] MEDS: IPRATROPIUM BROMIDE 0.02% NEB 0.5 MG/2.5 ML AMPUL NEB SCH ×3 (02:19→13:52)
[2016-09-08] MEDS: LEVALBUTEROL HCL NEB 1.25 MG/3 ML AMPUL NEB SCH ×3 (02:19→13:52)
[2016-09-08] MEDS: LANSOPRAZOLE 30 MG TAB.RAP.DR PO SCH (05:05)
[2016-09-08] MEDS: CLOTRIMAZOLE 10 MG TROCHE PO SCH ×3 (06:09→12:11)
[2016-09-08] MEDS: ENOXAPARIN SODIUM INJ 40 MG/0.4 ML DISP.SYRIN SUBCUT SCH (07:18)
[2016-09-08] MEDS: PREDNISONE 20 MG TABLET PO SCH (10:03)
[2016-09-08] MEDS: LEVOFLOXACIN 750 MG TABLET PO SCH (10:03)
[2016-09-08] MEDS: ASPIRIN 81 MG TABLET, CHEWABLE PO SCH (10:03)
[2016-09-08] MEDS: GUAIFENESIN 600 MG TABLET.SA PO SCH (10:04)
[2016-09-08] MEDS: METOPROLOL SUCCINATE 50 MG TAB.SR.24H PO SCH (10:04)
[2016-09-08] MEDS: CLOPIDOGREL BISULFATE 75 MG TABLET PO SCH (10:04)
[2016-09-08] MEDS: HYDROXYCHLOROQUINE SULFATE 200 MG TABLET PO SCH (10:04)
[2016-09-08 11:54] VITALS: BP 133/68
--- NOTE | 2016-09-08 13:25 | PDOC DISCHARGE SUMMARY ---
General - Admit/Disc Date/PCP Admission Date/Primary Care Provider: 09/02/16 14:33 SMOOTH GARCIA MD Discharge Date: 09/08/16 - Discharge Diagnosis (1) Sepsis Is this a current diagnosis for this admission?: YesSummary: Sepsis was from pneumonia. Cultures all were negative for pathogens (2) Pneumonia Is this a current diagnosis for this admission?: YesSummary: Negative cultures. (3) COPD with acute exacerbation Is this a current diagnosis for this admission?: YesSummary: Treated with IV steroids. She will require home oxygen. (4) Elevated troponin Is this a current diagnosis for this admission?: YesSummary: Possibly secondary to type II myocardial infarction. Most likely secondary to the stress of underlying sepsis. Patient had an echocardiogram showed diastolic dysfunction. (5) Depression Is this a current diagnosis for this admission?: Yes (6) Gastritis Is this a current diagnosis for this admission?: Yes (7) Hyperglycemia Is this a current diagnosis for this admission?: Yes (8) Hyperlipidemia Is this a current diagnosis for this admission?: Yes (9) Hypertension Is this a current diagnosis for this admission?: Yes (10) Irritable bowel syndrome Is this a current diagnosis for this admission?: Yes (11) Obstructive sleep apnea Is this a current diagnosis for this admission?: Yes (12) Oral thrush Is this a current diagnosis for this admission?: Yes (13) Headache Is this a current diagnosis for this admission?: Yes - Additional Information Resuscitation Status: Full Code Discharge Diet: Regular Discharge Activity: Activity As Tolerated Home Medications: Albuterol Sulfate [Albuterol Sulfate 2.5mg/3 mL] 1 vial IH ASDIR PRN 09/03/16 Albuterol Sulfate [Proair Respiclick] 90 mcg IH ASDIR PRN 09/03/16 Butalb/Acetaminophen/Caffeine [Fioricet (50-325-40 mg) Tablet] 1 tab PO Q12HP PRN 09/03/16 Cholecalciferol (Vitamin D3) [Vitamin D3] 2,000 unit PO DAILY 09/03/16 Citalopram Hydrobromide [Celexa 20 mg Tablet] 20 mg PO QHS 09/03/16 Colestipol HCl [Colestid 5 gm Packet] 15 gm PO DAILYP PRN 09/03/16 Cyclobenzaprine HCl [Flexeril 5 mg Tablet] 5 mg PO QHS 09/03/16 Desloratadine [Clarinex] 5 mg PO QHS 09/03/16 Ezetimibe/Simvastatin [Vytorin 10-40 mg Tablet] 1 each PO DAILY 09/03/16 Fluticasone Propionate [Flonase Nasal Flournoy 50 Mcg/Flournoy 16 gm] 1 spray NASL Q12 09/03/16 Fluticasone/Salmeterol [Advair 500-50 Diskus 28 Dose] 1 inh IH Q12 09/03/16 Gabapentin [Neurontin] 600 mg PO QHS 09/03/16 Hydrocodone/Acetaminophen [Hammond 7.5-325 mg Tablet] 1 tab PO Q6HP PRN 09/03/16 Hydroxychloroquine Sulfate [Plaquenil 200 mg Tablet] 200 mg PO BID 09/03/16 Ibandronate Sodium [Boniva] 150 mg PO ASDIR 09/03/16 Lidocaine [Lidoderm 5% (700 mg) Transdermal Patch] 1 patch TP DAILYP PRN Metoprolol Succinate [Toprol Xl 50 mg Tab.sr] 50 mg PO DAILY 09/03/16 Montelukast Sodium [Singulair 10 mg Tablet] 10 mg PO QHS 09/03/16 Ondansetron [Zofran Odt 4 mg Tablet] 4 mg PO DAILYP PRN 09/03/16 Rabeprazole Sodium [Aciphex] 20 mg PO BID 09/03/16 Ropinirole HCl [Requip 2 mg Tablet] 2 mg PO QHS 09/03/16 Temazepam [Restoril 15 mg Capsule] 15 mg PO QHS 09/03/16 Clopidogrel Bisulfate [Plavix 75 mg Tablet] 75 mg PO DAILY #30 tablet 09/08/16 Clotrimazole/Betamethasone Dip [Lotrisone Cream] 15 gm TP DAILY #1 cream.gm. Levofloxacin [Levaquin 750 mg Tablet] 750 mg PO DAILY #4 tablet 09/08/16 Prednisone [Deltasone 20 mg Tablet] 10 mg PO DAILY #39 tablet 09/08/16 History of Present Illness History of Present Illness: MIREYA TORRES is a 66 year old female with a history of COPD obstructive sleep apnea and hypertension presented with 5 day history of shortness of breath. The patient 5 days earlier and had a surgical procedure and had general anesthesia. Patient was found to have pneumonia and also sepsis. Hospital Course Hospital Course: 66-year-old female with COPD, obstructive sleep apnea, hypertension who presented with sepsis secondary to pneumonia. Patient was treated with broad- spectrum antibiotics and had improvement. She also was given IV steroids. The patient and the day of discharge was back to her baseline respiratory status however she remained hypoxic and call 5 for home oxygen. She will be sent home on additional Levaquin by mouth to complete a total of 10 days of antibiotics. The patient had cultures that were negative for any pathogens. She also was noted have positive troponins and cardiac she was consulted. They performed an echocardiogram which showed her to have diastolic dysfunction. It's felt that the elevated troponins were most likely secondary to type II non-STEMI because of the stress of the sepsis. Patient also had complaints of dermatitis on her lower back and is discharged with Lotrisone for that. Physical Exam Vital Signs: Temp Pulse Resp BP Pulse Ox 98.0 F 86 17 133/68 H 94 09/08/16 13:07 09/08/16 13:07 09/08/16 13:07 09/08/16 13:07 09/08/16 13:07 Pulse Oximeter Continuous Start: 09/02/16 14: 34 Freq: RTQ4 Status: Active Document 09/08/16 08:10 CBR (Rec: 09/08/16 11:34 CBR [id number]) Pulse Oximetry Assessment Oxygen Saturation (92-100) 96 Oxygen Flow Rate (L/min) 2 Oxygen Delivery Method Nasal Cannula Equipment Usage Equipment in Use Continuous SpO2 Machine # 2 Intake & Output 09/07/16 09/08/16 09/09/16 06:59 06:59 06:59 Intake Total 2280 1160 Output Total 720 1250 Balance 1560 -90 Weight 59.9 kg 59.9 kg General appearance: PRESENT: no acute distress Eye exam: PRESENT: conjunctiva pink. ABSENT: scleral icterus Ear exam: PRESENT: normal external ear exam Mouth exam: PRESENT: moist, tongue midline Neck exam: ABSENT: JVD Respiratory exam: PRESENT: clear to auscultation jama. ABSENT: rales, rhonchi, wheezes Cardiovascular exam: PRESENT: RRR. ABSENT: diastolic murmur, rubs, systolic murmur GI/Abdominal exam: PRESENT: normal bowel sounds, soft. ABSENT: distended, guarding, mass, organolmegaly, rebound, tenderness Extremities exam: ABSENT: calf tenderness, clubbing, pedal edema Neurological exam: PRESENT: alert, awake, oriented to person, oriented to place , oriented to time, oriented to situation, CN II-XII grossly intact. ABSENT: motor sensory deficit Psychiatric exam: PRESENT: appropriate affect Skin exam: PRESENT: other - Erythematous rash on the small of her back consistent with tinea. Results Laboratory Results: 09/07/16 05:25 09/07/16 05:25 09/02/16 09/02/16 09/03/16 15:55 20:10 00:23 Troponin I 0.412 0.330 0.238 NT-Pro-B Natriuret Pep 09/08/16 04:16 Troponin I NT-Pro-B Natriuret Pep 1620 H Impressions: Chest X-Ray 09/02/16 07:08 IMPRESSION: Blunting of the left costophrenic angle which could represent pleural reaction or a tiny effusion. Visualized lung bills are free of active infiltrates. Other findings as noted above Chest/Abdomen CTA 09/02/16 08:27 IMPRESSION: 1. Right middle lobe and lingular infiltrate consistent with pneumonia. 2. Right hilar adenopathy. This could be reactive or neoplastic. Further evaluation with bronchoscopy or PET imaging may be beneficial. 3. No pulmonary emboli. Qualifiers PATEINT BEING DISCHARGED WITH ANY OF THE FOLLOWING DIAGNOSIS?: OH OH Pt being discharged on Aspirin therapy?: Yes OH Pt being discharged on Statins?: Yes OH Pt discharged ACEI/ARBS?: Yes Plan Discharge Plan: Patient is discharged home with home oxygen at 2 L per nasal cannula. She will follow up with her snake charmer this week and her primary care in 2 weeks. Time Spent: Greater than 30 Minutes
--- NOTE | 2016-09-08 17:20 | PDOC PROGRESS REPORT ---
Subjective Progress Note for:: 09/08/16 Subjective:: Patient was seen prior to discharge. Patient seems to be doing better. Patient claims to have ambulated. She is suspecting to be discharged. Pt is denying any chest arm or neck discomfort. Patient denying any PND, orthopnea. Patient denied any sustained palpitations, dizziness, syncope, near syncope. Patient denying any fever chills. Patient denying any other significant discomfort. Patient is maintaining sinus rhythm. Patient dyspnea has improved. Patient claims that she had walked in the hallway and her oxygen did not drop. 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 Patient encouraged to follow up with me to schedule a nuclear stress test. This was because of positive troponin I release. Medications: Medications have been reviewed. Physical Exam Vital Signs: Temp Pulse Resp BP Pulse Ox 98.0 F 86 17 133/68 H 94 09/08/16 13:07 09/08/16 13:07 09/08/16 13:07 09/08/16 13:07 09/08/16 13:07 Pulse Oximeter Continuous Start: 09/02/16 14: 34 Freq: RTQ4 Status: Complete Document 09/08/16 14:24 CBR (Rec: 09/08/16 14:24 CBR [id number]) Pulse Oximetry Assessment Equipment Usage Equipment Discontinued Continuous SpO2 Machine # 2 Intake & Output 09/07/16 09/08/16 09/09/16 06:59 06:59 06:59 Intake Total 2280 1160 Output Total 720 1250 Balance 1560 -90 Weight 59.9 kg 59.9 kg Exam: GENERAL: well-nourished and in no acute distress. Alert and oriented x3 HEAD: Atraumatic, normocephalic. EYES: Pupils equal round and reactive to light, extraocular movements intact, sclera anicteric, conjunctiva are normal. ENT: TMs normal, nares patent, oropharynx clear without exudates. Moist mucous membranes. No oral ulcerations or bleeding gums noted NECK: supple without lymphadenopathy. Trachea is central. No cervical or axillary lymphadenopathy noted. Carotids are 2+, JVD WNL LUNGS: Respiration seems nonlabored, no significant accessory muscle action noted. Breath sounds clear to auscultation bilaterally and equal noted. No wheezes rales or rhonchi noted. No significant dullness noted on percussion. CHEST: Palpation of the chest wall shows no significant chest wall tenderness. No other significant abnormalities noted. HEART: Hewitt BAKERY DEMONSTRATOR, No PSH, 1/6 CINDY aortic area, 1/6 franks systolic murmur mitral area, no rubs, no gallops. ABDOMEN: Soft, no significant tenderness appreciated, normoactive bowel sounds. No guarding, no rebound. No rigidity noted . No masses appreciated. EXTREMITIES: Pedal pulses are 1-2+, no calf tenderness noted. No clubbing or cyanosis.trace to 1+ pedal edema noted NEUROLOGICAL: Focused neurological exam showed no significant neurologic deficit. Normal speech, no focal weakness appreciated. PSYCH: Normal mood, normal affect. Judgment and insight within normal limits. SKIN: No significant ecchymosis, rash, ulcerations or signs of pruritus noted. MUSCULOSKELETAL EXAM: No significant joint swelling noted. Results Laboratory Results: 09/07/16 05:25 09/07/16 05:25 09/02/16 09/02/16 09/03/16 15:55 20:10 00:23 Troponin I 0.412 0.330 0.238 NT-Pro-B Natriuret Pep 09/08/16 04:16 Troponin I NT-Pro-B Natriuret Pep 1620 H Impressions: Chest X-Ray 09/02/16 07:08 IMPRESSION: Blunting of the left costophrenic angle which could represent pleural reaction or a tiny effusion. Visualized lung bills are free of active infiltrates. Other findings as noted above Chest/Abdomen CTA 09/02/16 08:27 IMPRESSION: 1. Right middle lobe and lingular infiltrate consistent with pneumonia. 2. Right hilar adenopathy. This could be reactive or neoplastic. Further evaluation with bronchoscopy or PET imaging may be beneficial. 3. No pulmonary emboli. Assessment & Plan - Diagnosis (1) Elevated troponin Is this a current diagnosis for this admission?: Yes (2) Respiratory failure Qualifiers: Chronicity: acute on chronic Respiratory failure complication: hypercapnia Qualified Code(s): J96.22 - Acute and chronic respiratory failure with hypercapnia Is this a current diagnosis for this admission?: Yes (3) COPD with acute exacerbation Is this a current diagnosis for this admission?: Yes (4) Hyperlipidemia Qualifiers: Hyperlipidemia type: unspecified Qualified Code(s): E78.5 - Hyperlipidemia, unspecified Is this a current diagnosis for this admission?: Yes (5) Hypertension Qualifiers: Hypertension type: essential hypertension Qualified Code(s): I10 - Essential (primary) hypertension Is this a current diagnosis for this admission?: Yes (6) Pneumonia Qualifiers: Pneumonia type: due to unspecified organism Laterality: right Lung location: unspecified part of lung Qualified Code(s): J18.9 - Pneumonia, unspecified organism Is this a current diagnosis for this admission?: Yes (7) Obstructive sleep apnea Is this a current diagnosis for this admission?: Yes - Notes Notes: Elevated troponin I, most likely not related to acute coronary syndrome but patient likely to have underlying CAD. Patient to be evaluated further as an outpatient with a nuclear stress test. 2-D echo results were reviewed. Respiratory failure, resolved COPD with acute exacerbation: Improved. Continue bronchodilator therapy. Dyslipidemia: Continue statin therapy. Hypertension: Blood pressure under good control. Pneumonia: Improved Sleep apnea: Patient to continue with CPAP therapy. Patient to report any further problems. Patient to follow-up in the office. - Time Time with patient: 15-25 minutes - CODE STATUS was discussed, patient remains full code. Surrogate decision-maker unchanged. Multiple medical problems were addressed.More than 50% of the time spent coordinating care, discussing management plans with involved caregivers. Management plans discussed with involved personnels. Medical decision making was of moderate complexity.
== END 2016-09-08 13:54 | disposition home or self-care (01) | DRG 871 ==
LOC: ER 07:05 → UNDOADMIN 14:33 → EH 14:33 → 4N 19:30
PROC: 5A09357 Assistance with Respiratory Ventilation, Less than 24 Consecutive Hours, Continuous Positive Airway Pressure (ICD-10-PCS; principal; 2016-09-02)
PROC: 3E0F73Z Introduction of Anti-inflammatory into Respiratory Tract, Via Natural or Artificial Opening (ICD-10-PCS; 2016-09-03)
DX: A41.9 Sepsis, unspecified organism (principal); J18.9 Pneumonia, unspecified organism; J96.22 Acute and chronic respiratory failure with hypercapnia; I21.4 Non-ST elevation (NSTEMI) myocardial infarction; J44.0 Chronic obstructive pulmonary disease with (acute) lower respiratory infection; J44.1 Chronic obstructive pulmonary disease with (acute) exacerbation; B37.0 Candidal stomatitis; R74.8 Abnormal levels of other serum enzymes; F32.9 Major depressive disorder, single episode, unspecified; K58.9 Irritable bowel syndrome, unspecified; E78.5 Hyperlipidemia, unspecified; I10 Essential (primary) hypertension; R73.9 Hyperglycemia, unspecified; T38.0X5A Adverse effect of glucocorticoids and synthetic analogues, initial encounter; G43.909 Migraine, unspecified, not intractable, without status migrainosus; K29.70 Gastritis, unspecified, without bleeding; G47.33 Obstructive sleep apnea (adult) (pediatric); Z79.899 Other long term (current) drug therapy; B35.9 Dermatophytosis, unspecified; Z85.3 Personal history of malignant neoplasm of breast; Z88.0 Allergy status to penicillin; Z90.12 Acquired absence of left breast and nipple; Z90.49 Acquired absence of other specified parts of digestive tract; Z90.710 Acquired absence of both cervix and uterus; Z87.891 Personal history of nicotine dependence; Z79.52 Long term (current) use of systemic steroids; Z82.49 Family history of ischemic heart disease and other diseases of the circulatory system; Z83.3 Family history of diabetes mellitus; Z80.9 Family history of malignant neoplasm, unspecified
CPT/HCPCS: 36415; 51702; 71010; 71275; 80048; 80053; 81001; 82550; 82553; 82803; 82962; 83036; 83605; 83735; 83880; 84443; 84484; 85025; 85379; 85610; 87040; 87070; 87205; 93005; 93010; 93306; 94640; 94660; 94667; 94762; 94799; 96365; 96366; 96375; 99291; J0743; J1650; J1940; J1956; J2060; J2270; J2405; J2930; J3490; J7030; J7512; J7620

== ENCOUNTER → 2016-09-23 | Outpatient (CLI) | payer MEDICARE, OTHER | LOC: OD 08:41 | PROVIDERS: ATTEND Internal Medicine Nephrology | DX: E87.5 Hyperkalemia (principal) | CPT/HCPCS: 36415; 84132 ==

== ENCOUNTER → 2016-12-04 | Outpatient (CLI) | payer MEDICARE, OTHER ==
[2016-12-04 09:07] LABS: ABSOLUTE EOSINOPHILS # (AUTO) 0.1 10^3/uL (0.0-0.6); ABSOLUTE LYMPHOCYTES (AUTO) 1.6 10^3/uL (0.5-4.7); ABSOLUTE MONOCYTES (AUTO) 0.4 10^3/uL (0.1-1.4); ABSOLUTE NEUT (AUTO) 2.6 10^3/uL (1.7-8.2); HEMATOCRIT 39.1 % (36.0-47.0); HEMOGLOBIN 12.8 g/dL (12.0-15.5); HGB HCT DIFFERENCE -0.7; LYMPHOCYTES % (AUTO) 33.5 % (13-45); MEAN CORPUSCULAR HEMOGLOBIN 29.1 pg (27.0-33.4); MEAN CORPUSCULAR HGB CONC 32.8 g/dL (32.0-36.0); MEAN CORPUSCULAR VOLUME 89 fl (80-97); MONOCYTES % (AUTO) 8.7 % (3-13); RED CELL DISTRIBUTION WIDTH 13.8 % (11.5-14.0); SEGMENTED NEUTROPHILS % (AUTO) 54.8 % (42-78); WHITE BLOOD COUNT 4.8 10^3/uL (4.0-10.5)
[2016-12-04 09:31] LABS: ALANINE AMINOTRANSFERASE 25 U/L (9-52); ALBUMIN 4.3 g/dL (3.5-5.0); ALKALINE PHOSPHATASE 91 U/L (38-126); ANION GAP 8 (5-19); ASPARTATE AMINO TRANSFERASE 19 U/L (14-36); BILIRUBIN,DIRECT 0.3 mg/dL (0.0-0.4); BILIRUBIN,TOTAL 0.4 mg/dL (0.2-1.3); BLOOD UREA NITROGEN 13 mg/dL (7-20); C-REACTIVE PROTEIN 8.2 mg/L (<10.0); CALCIUM 9.6 mg/dL (8.4-10.2); CARBON DIOXIDE 30 mmol/L (22-30); CHLORIDE 100 mmol/L (98-107); CREATINE KINASE 62 U/L (30-135); CREATININE RESULT 0.78 mg/dL (0.52-1.25); GLUCOSE 90 mg/dL (75-110); SODIUM 138.2 mmol/L (137-145); TOTAL PROTEIN 6.9 g/dL (6.3-8.2)
[2016-12-04 09:59] LABS: ERYTHROCYTE SEDIMENTATION RATE 10 mm/hr (0-30)
== END ==
LOC: OD 08:31
PROVIDERS: ATTEND Internal Medicine Rheumatology
DX: M05.79 Rheumatoid arthritis with rheumatoid factor of multiple sites without organ or systems involvement (principal); M25.50 Pain in unspecified joint; M79.1 Myalgia; M15.0 Primary generalized (osteo)arthritis; M54.5 Low back pain; E55.9 Vitamin D deficiency, unspecified; Z79.899 Other long term (current) drug therapy
CPT/HCPCS: 36415; 80053; 82306; 82550; 85025; 85652; 86140

== ENCOUNTER → 2016-12-30 | Outpatient (CLI) | payer MEDICARE, OTHER ==
[2016-12-30 10:07] LABS: ANION GAP 8 (5-19); BLOOD UREA NITROGEN 15 mg/dL (7-20); CALCIUM 9.6 mg/dL (8.4-10.2); CARBON DIOXIDE 29 mmol/L (22-30); CHLORIDE 99 mmol/L (98-107); CREATININE RESULT 0.82 mg/dL (0.52-1.25); GLUCOSE 84 mg/dL (75-110); POTASSIUM 5.6 mmol/L (3.6-5.0); SODIUM 136.1 mmol/L (137-145)
== END ==
LOC: OD 08:59
PROVIDERS: ATTEND Internal Medicine Nephrology
DX: E87.5 Hyperkalemia (principal); I10 Essential (primary) hypertension
CPT/HCPCS: 36415; 80048

== ENCOUNTER → 2017-01-14 | Outpatient (CLI) | payer MEDICARE, OTHER | LOC: OD 13:17 | PROVIDERS: ATTEND Internal Medicine Nephrology | DX: E87.5 Hyperkalemia (principal) | CPT/HCPCS: 36415; 84132 ==

== ENCOUNTER 2017-02-26 10:31 | Day surgery (SDC) | payer MEDICARE, OTHER ==
[~2017-02-26 10:31] MED LIST changes: -BUPIVACAINE INJ/PF LIPOSOME/PF 266 MG/20 ML SDV IJ PRN; -CLINDAMYCIN 600 MG/D5W RTU 600 MG/50 ML RTUPB IV PRN; -IBUPROFEN 800 MG in NORMAL SALINE 250 ML IV PRN; +KETOROLAC TROMETHAMINE 0.45% 4 DROP/0.4 ML DROPERETTE OS PRN; -LANSOPRAZOLE 15 MG TAB.RAP.DR PO PRN; -OXYCODONE HCL SR 10 MG TABLET PO PRN; -SCOPOLAMINE HYDROBROMIDE 1.5 MG PATCH.TD72 TD PRN
[2017-02-26] MEDS: LIDOCAINE 3.5% OPH GEL/PF 1 ML/TUBE OS PRN ×3 (11:02→11:50)
[2017-02-26] MEDS ORDERED: LIDOCAINE 1% INJ-PF (10 MG/ML) 30 ML SDV ONE (11:03)
[2017-02-26] MEDS: TROPICAMIDE 1% OPH SOLN 3 ML OS PRN ×3 (11:03→11:28)
[2017-02-26] MEDS ORDERED: EPINEPHRINE INJ/PF 1 MG/1 ML AMPULE ONE (11:03)
[2017-02-26] MEDS: CYCLOPENTOLATE 0.2%/PHENYLEPHRINE 1% OPH SOLN 2 ML OS PRN ×3 (11:03→11:28)
[2017-02-26] MEDS ORDERED: CHONDR SU A NA/HYALUR INTRAOC KIT (SURGICARE) ONE (11:03)
[2017-02-26] MEDS: BESIFLOXACIN HCL 0.6% OPH SUSP 5 ML BOTTLE OS PRN ×4 (11:04→12:10)
[2017-02-26] MEDS ORDERED: MIDAZOLAM 2 MG/2 ML INJ ONE ×2 (11:40→12:05)
[2017-02-26] MEDS ORDERED: ONDANSETRON HCL INJ/PF 4 MG/2 ML SDV ONE (11:40)
[2017-02-26] MEDS: TOBRAMYCIN SULFATE/DEXAMETH OPH OINTMENT 3.5 GM ONE ×2 (12:10)
== END 2017-02-26 12:45 | disposition home or self-care (01) ==
LOC: SC 10:31
PROVIDERS: ATTEND Ophthalmology
PROC: 08RK3JZ Replacement of Left Lens with Synthetic Substitute, Percutaneous Approach (ICD-10-PCS; principal; 2017-02-26 11:15)
DX: H25.12 Age-related nuclear cataract, left eye (principal); J44.9 Chronic obstructive pulmonary disease, unspecified; M06.9 Rheumatoid arthritis, unspecified; I25.10 Atherosclerotic heart disease of native coronary artery without angina pectoris; I10 Essential (primary) hypertension; E78.00 Pure hypercholesterolemia, unspecified; K21.9 Gastro-esophageal reflux disease without esophagitis; M32.9 Systemic lupus erythematosus, unspecified; G47.30 Sleep apnea, unspecified; F32.9 Major depressive disorder, single episode, unspecified; Z79.51 Long term (current) use of inhaled steroids; Z79.899 Other long term (current) drug therapy; Z87.891 Personal history of nicotine dependence; Z88.0 Allergy status to penicillin
CPT/HCPCS: 66984; V2630; J2250; J3490 ×3; A9270 ×2; J0171; J2405; 142

== ENCOUNTER 2017-03-12 09:01 | Day surgery (SDC) | payer MEDICARE, OTHER ==
[~2017-03-12 09:01] MED LIST changes: +CHONDR SU A NA/HYALUR INTRAOC KIT (SURGICARE) ONE; +EPINEPHRINE INJ/PF 1 MG/1 ML AMPULE ONE; +KETOROLAC TROMETHAMINE 0.45% 4 DROP/0.4 ML DROPERETTE OD PRN; -KETOROLAC TROMETHAMINE 0.45% 4 DROP/0.4 ML DROPERETTE OS PRN; +LIDOCAINE 1% INJ-PF (10 MG/ML) 30 ML SDV ONE
[2017-03-12] MEDS: LIDOCAINE 3.5% OPH GEL/PF 1 ML/TUBE OD PRN ×2 (09:24→09:52)
[2017-03-12] MEDS: TROPICAMIDE 1% OPH SOLN 3 ML OD PRN ×3 (09:24→09:49)
[2017-03-12] MEDS: BESIFLOXACIN HCL 0.6% OPH SUSP 5 ML BOTTLE OD PRN ×4 (09:25→10:19)
[2017-03-12] MEDS: CYCLOPENTOLATE 0.2%/PHENYLEPHRINE 1% OPH SOLN 2 ML OD PRN ×3 (09:25→09:49)
[2017-03-12] MEDS ORDERED: MIDAZOLAM 2 MG/2 ML INJ ONE ×2 (09:48→10:27)
[2017-03-12] MEDS: TOBRAMYCIN SULFATE/DEXAMETH OPH OINTMENT 3.5 GM ONE ×2 (10:19)
== END 2017-03-12 11:15 | disposition home or self-care (01) ==
LOC: SC 09:01
PROVIDERS: ATTEND Ophthalmology
PROC: 08RJ3JZ Replacement of Right Lens with Synthetic Substitute, Percutaneous Approach (ICD-10-PCS; principal; 2017-03-12 10:00)
DX: H25.11 Age-related nuclear cataract, right eye (principal); Z98.42 Cataract extraction status, left eye; J44.9 Chronic obstructive pulmonary disease, unspecified; I25.10 Atherosclerotic heart disease of native coronary artery without angina pectoris; M06.9 Rheumatoid arthritis, unspecified; M19.90 Unspecified osteoarthritis, unspecified site; I10 Essential (primary) hypertension; E78.00 Pure hypercholesterolemia, unspecified; F32.9 Major depressive disorder, single episode, unspecified; M32.9 Systemic lupus erythematosus, unspecified; Z96.653 Presence of artificial knee joint, bilateral; G47.30 Sleep apnea, unspecified; Z79.51 Long term (current) use of inhaled steroids; Z79.899 Other long term (current) drug therapy; I25.2 Old myocardial infarction; Z87.891 Personal history of nicotine dependence; Z88.0 Allergy status to penicillin; Z79.02 Long term (current) use of antithrombotics/antiplatelets
CPT/HCPCS: 66984; V2630; J2250; J3490 ×3; A9270 ×2; J0171; 142

== ENCOUNTER → 2017-03-21 | Outpatient (CLI) | payer MEDICARE, OTHER ==
[2017-03-21 11:45] LABS: ABSOLUTE EOSINOPHILS # (AUTO) 0.1 10^3/uL (0.0-0.6); ABSOLUTE LYMPHOCYTES (AUTO) 1.7 10^3/uL (0.5-4.7); ABSOLUTE MONOCYTES (AUTO) 0.4 10^3/uL (0.1-1.4); ABSOLUTE NEUT (AUTO) 2.2 10^3/uL (1.7-8.2); BASOPHILS % (AUTO) 1.1 % (0-2); EOSINOPHILS % (AUTO) 2.3 % (0-6); HEMATOCRIT 37.2 % (36.0-47.0); HEMOGLOBIN 12.8 g/dL (12.0-15.5); HGB HCT DIFFERENCE 1.2; LYMPHOCYTES % (AUTO) 38.8 % (13-45); MEAN CORPUSCULAR HGB CONC 34.4 g/dL (32.0-36.0); MEAN CORPUSCULAR VOLUME 90 fl (80-97); MONOCYTES % (AUTO) 9.1 % (3-13); RED BLOOD COUNT 4.13 10^6/uL (3.72-5.28); RED CELL DISTRIBUTION WIDTH 14.3 % (11.5-14.0); SEGMENTED NEUTROPHILS % (AUTO) 48.7 % (42-78); WHITE BLOOD COUNT 4.5 10^3/uL (4.0-10.5)
[2017-03-21 12:24] LABS: ALANINE AMINOTRANSFERASE 33 U/L (9-52); ALBUMIN 4.1 g/dL (3.5-5.0); ALKALINE PHOSPHATASE 80 U/L (38-126); ANION GAP 8 (5-19); ASPARTATE AMINO TRANSFERASE 20 U/L (14-36); BILIRUBIN,DIRECT 0.3 mg/dL (0.0-0.4); BILIRUBIN,TOTAL 0.4 mg/dL (0.2-1.3); BLOOD UREA NITROGEN 13 mg/dL (7-20); C-REACTIVE PROTEIN 5.1 mg/L (<10.0); CALCIUM 9.4 mg/dL (8.4-10.2); CARBON DIOXIDE 29 mmol/L (22-30); CHLORIDE 100 mmol/L (98-107); CREATINE KINASE 76 U/L (30-135); GLUCOSE 74 mg/dL (75-110); POTASSIUM 5.1 mmol/L (3.6-5.0); SODIUM 137.4 mmol/L (137-145); TOTAL PROTEIN 6.4 g/dL (6.3-8.2)
[2017-03-21 12:27] LABS: ERYTHROCYTE SEDIMENTATION RATE 11 mm/hr (0-30)
== END ==
LOC: OD 10:11
PROVIDERS: ATTEND Internal Medicine Rheumatology
DX: M05.79 Rheumatoid arthritis with rheumatoid factor of multiple sites without organ or systems involvement (principal); M15.0 Primary generalized (osteo)arthritis; M47.819 Spondylosis without myelopathy or radiculopathy, site unspecified; M48.06 Spinal stenosis, lumbar region; M81.0 Age-related osteoporosis without current pathological fracture; L20.89 Other atopic dermatitis; I28.8 Other diseases of pulmonary vessels; M35.00 Sjogren syndrome, unspecified; G47.30 Sleep apnea, unspecified
CPT/HCPCS: 36415; 80053; 82550; 84550; 85025; 85652; 86140

== ENCOUNTER → 2017-05-19 | Outpatient (CLI) | payer MEDICARE, OTHER ==
[2017-05-19 12:28] LABS: ABSOLUTE EOSINOPHILS # (AUTO) 0.1 10^3/uL (0.0-0.6); ABSOLUTE LYMPHOCYTES (AUTO) 1.5 10^3/uL (0.5-4.7); ABSOLUTE MONOCYTES (AUTO) 0.3 10^3/uL (0.1-1.4); ABSOLUTE NEUT (AUTO) 2.2 10^3/uL (1.7-8.2); BASOPHILS % (AUTO) 1.1 % (0-2); EOSINOPHILS % (AUTO) 1.9 % (0-6); HEMATOCRIT 37.4 % (36.0-47.0); HEMOGLOBIN 12.5 g/dL (12.0-15.5); HGB HCT DIFFERENCE 0.1; LYMPHOCYTES % (AUTO) 37.2 % (13-45); MEAN CORPUSCULAR HEMOGLOBIN 30.1 pg (27.0-33.4); MEAN CORPUSCULAR HGB CONC 33.3 g/dL (32.0-36.0); MEAN CORPUSCULAR VOLUME 90 fl (80-97); MONOCYTES % (AUTO) 7.1 % (3-13); RED BLOOD COUNT 4.14 10^6/uL (3.72-5.28); RED CELL DISTRIBUTION WIDTH 13.5 % (11.5-14.0); SEGMENTED NEUTROPHILS % (AUTO) 52.7 % (42-78); WHITE BLOOD COUNT 4.1 10^3/uL (4.0-10.5)
[2017-05-19 12:40] LABS: ABSOLUTE EOSINOPHILS # (AUTO) 0.1 10^3/uL (0.0-0.6); ABSOLUTE LYMPHOCYTES (AUTO) 1.5 10^3/uL (0.5-4.7); ABSOLUTE MONOCYTES (AUTO) 0.3 10^3/uL (0.1-1.4); ABSOLUTE NEUT (AUTO) 2.2 10^3/uL (1.7-8.2); BASOPHILS % (AUTO) 1.1 % (0-2); EOSINOPHILS % (AUTO) 1.9 % (0-6); HEMATOCRIT 37.4 % (36.0-47.0); HEMOGLOBIN 12.5 g/dL (12.0-15.5); HGB HCT DIFFERENCE 0.1; LYMPHOCYTES % (AUTO) 37.2 % (13-45); MEAN CORPUSCULAR HEMOGLOBIN 30.1 pg (27.0-33.4); MEAN CORPUSCULAR HGB CONC 33.3 g/dL (32.0-36.0); MEAN CORPUSCULAR VOLUME 90 fl (80-97); MONOCYTES % (AUTO) 7.1 % (3-13); RED BLOOD COUNT 4.14 10^6/uL (3.72-5.28); RED CELL DISTRIBUTION WIDTH 13.5 % (11.5-14.0); SEGMENTED NEUTROPHILS % (AUTO) 52.7 % (42-78); WHITE BLOOD COUNT 4.1 10^3/uL (4.0-10.5)
[2017-05-19 12:54] LABS: ALANINE AMINOTRANSFERASE 27 U/L (9-52); ALBUMIN 4.3 g/dL (3.5-5.0); ALKALINE PHOSPHATASE 75 U/L (38-126); ANION GAP 8 (5-19); ASPARTATE AMINO TRANSFERASE 18 U/L (14-36); BILIRUBIN,DIRECT 0.4 mg/dL (0.0-0.4); BILIRUBIN,TOTAL 0.5 mg/dL (0.2-1.3); BLOOD UREA NITROGEN 14 mg/dL (7-20); CALCIUM 9.3 mg/dL (8.4-10.2); CARBON DIOXIDE 29 mmol/L (22-30); CHLORIDE 101 mmol/L (98-107); CHOLESTEROL 214.85 mg/dL (0-200); CREATININE RESULT 0.76 mg/dL (0.52-1.25); Direct HDL 68 mg/dL (>40); GLUCOSE 85 mg/dL (75-110); POTASSIUM 4.5 mmol/L (3.6-5.0); SODIUM 138.4 mmol/L (137-145); TOTAL PROTEIN 6.5 g/dL (6.3-8.2); TRIGLYCERIDES 80 mg/dL (<150)
[2017-05-19 13:05] LABS: DIRECT LDL 118 mg/dL (<100)
[2017-05-19 13:18] LABS: ALANINE AMINOTRANSFERASE 27 U/L (9-52); ALBUMIN 4.3 g/dL (3.5-5.0); ALKALINE PHOSPHATASE 75 U/L (38-126); ANION GAP 8 (5-19); ASPARTATE AMINO TRANSFERASE 18 U/L (14-36); BILIRUBIN,DIRECT 0.4 mg/dL (0.0-0.4); BILIRUBIN,TOTAL 0.5 mg/dL (0.2-1.3); BLOOD UREA NITROGEN 14 mg/dL (7-20); CALCIUM 9.3 mg/dL (8.4-10.2); CARBON DIOXIDE 29 mmol/L (22-30); CHLORIDE 101 mmol/L (98-107); CREATININE RESULT 0.76 mg/dL (0.52-1.25); GLUCOSE 85 mg/dL (75-110); POTASSIUM 4.5 mmol/L (3.6-5.0); SODIUM 138.4 mmol/L (137-145); TOTAL PROTEIN 6.5 g/dL (6.3-8.2)
[2017-05-19 13:29] LABS: ERYTHROCYTE SEDIMENTATION RATE 9 mm/hr (0-30)
[2017-05-19 13:36] LABS: C-REACTIVE PROTEIN 5.9 mg/L (<10.0); CREATINE KINASE 67 U/L (30-135)
== END ==
LOC: OD 10:41
PROVIDERS: ATTEND Internal Medicine Nephrology
DX: E78.5 Hyperlipidemia, unspecified (principal); I10 Essential (primary) hypertension; M45.4 Ankylosing spondylitis of thoracic region; M25.50 Pain in unspecified joint; M79.1 Myalgia; M15.0 Primary generalized (osteo)arthritis; E55.9 Vitamin D deficiency, unspecified; Z79.899 Other long term (current) drug therapy
CPT/HCPCS: 36415; 80053; 80061; 82306; 82550; 85025; 85652; 86140

== ENCOUNTER → 2017-08-04 | Outpatient (CLI) | payer MEDICARE, OTHER ==
--- NOTE | 2017-08-05 09:08 | WOMENS IMAGING REPORT ---
EXAM DESCRIPTION: BILAT SCREENING MAMMO W/CAD COMPLETED DATE/TIME: 08/04/2017 11:44 am REASON FOR STUDY: ROUTINE SCREENING; Z12.31 Z12.31 ENCNTR SCREEN MAMMOGRAM FOR MALIGNANT NEOPLASM O F DANISH COMPARISON: 07/16/2016 and 07/29/2014. TECHNIQUE: Standard craniocaudal and mediolateral oblique views of each breast recorded using digita l acquisition. LIMITATIONS: None. FINDINGS: Findings present which are benign by mammographic criteria. No suspicious masses, calcifi cations or architectural distortion. Pertinent benign findings: Surgical changes. Read with the assistance of CAD. .[facility] R2 Cenova Version 1.3 .[facility] - R2 Cenova Version 1.3 .[facility] Imaging - R2 Cenova Version 2.4 .[facility] - R2 Cenova Version 2.4 .[facility] - R2 Chemical Engineering Technologist Version 9.2 Benign mammographic findings may include one or more of the following: Smooth masses, popcorn/rim/co arse calcifications, asymmetries, post-procedure changes, and lesions with long-standing stability. IMPRESSION: BENIGN MAMMOGRAPHIC FINDINGS. BIRADS 2 BREAST DENSITY: b. There are scattered areas of fibroglandular density. BIRAD: 2 BENIGN FINDING(S) RECOMMENDATION: ROUTINE SCREENING COMMENT: The patient has been notified of the results by letter per SA requirements. Additional no tification policies are in place for contacting patient with suspicious or incomplete findings. Quality ID #[id number]: The [employer] recommends an annual screening mammogram for women aged 40 years or over. This facility utilizes a reminder system to ensure that all patients receive reminder letters, and/or direct phone calls for appointments. This includes reminders for routine scr eening mammograms, diagnostic mammograms, or other Breast Imaging Interventions when appropriate. Th is patient will be placed in the appropriate reminder system. The [employer] (ACR) has developed recommendations for screening MRI of the breast s in certain patient populations, to be used in conjunction with mammography. Breast MRI surveillanc e may be appropriate for women with more than 20% lifetime risk of developing breast cancer as deter mined by genetic testing, significant family history of the disease, or history of mantle radiation f or Hodgkins Disease. ACR Practice Guidelines 2008. TECHNICAL DOCUMENTATION: FINDING NUMBER: (1) ASSESSMENT: (1) JOB ID: [id number] [employer]- All Rights Reserved
== END ==
LOC: WI 11:29
PROVIDERS: ATTEND Internal Medicine Nephrology
DX: Z12.31 Encounter for screening mammogram for malignant neoplasm of breast (principal); E78.5 Hyperlipidemia, unspecified
CPT/HCPCS: 77067

== ENCOUNTER → 2017-08-21 | Outpatient (CLI) | payer MEDICARE, OTHER ==
[2017-08-21 13:52] LABS: ABSOLUTE EOSINOPHILS # (AUTO) 0.1 10^3/uL (0.0-0.6); ABSOLUTE LYMPHOCYTES (AUTO) 1.5 10^3/uL (0.5-4.7); ABSOLUTE MONOCYTES (AUTO) 0.4 10^3/uL (0.1-1.4); ABSOLUTE NEUT (AUTO) 5.5 10^3/uL (1.7-8.2); BASOPHILS % (AUTO) 0.6 % (0-2); EOSINOPHILS % (AUTO) 0.9 % (0-6); LYMPHOCYTES % (AUTO) 19.7 % (13-45); MEAN CORPUSCULAR HGB CONC 33.4 g/dL (32.0-36.0); MEAN CORPUSCULAR VOLUME 90 fl (80-97); PLATELET COUNT 269 10^3/uL (150-450); RED BLOOD COUNT 4.01 10^6/uL (3.72-5.28); RED CELL DISTRIBUTION WIDTH 14.1 % (11.5-14.0); SEGMENTED NEUTROPHILS % (AUTO) 73.8 % (42-78); TOTAL CELLS COUNTED % (AUTO) 100 %; WHITE BLOOD COUNT 7.4 10^3/uL (4.0-10.5)
[2017-08-21 14:16] LABS: ALANINE AMINOTRANSFERASE 17 U/L (9-52); ALBUMIN 4.1 g/dL (3.5-5.0); ALKALINE PHOSPHATASE 79 U/L (38-126); ANION GAP 9 (5-19); ASPARTATE AMINO TRANSFERASE 15 U/L (14-36); BILIRUBIN,DIRECT 0.3 mg/dL (0.0-0.4); BILIRUBIN,TOTAL 0.3 mg/dL (0.2-1.3); BLOOD UREA NITROGEN 11 mg/dL (7-20); C-REACTIVE PROTEIN 8.1 mg/L (<10.0); CALCIUM 9.3 mg/dL (8.4-10.2); CARBON DIOXIDE 28 mmol/L (22-30); CHLORIDE 101 mmol/L (98-107); CREATINE KINASE 68 U/L (30-135); GLUCOSE 105 mg/dL (75-110); POTASSIUM 4.4 mmol/L (3.6-5.0); SODIUM 137.9 mmol/L (137-145); TOTAL PROTEIN 6.4 g/dL (6.3-8.2)
[2017-08-21 14:27] LABS: ERYTHROCYTE SEDIMENTATION RATE 34 mm/hr (0-30)
== END ==
LOC: OD 13:04
PROVIDERS: ATTEND Internal Medicine Rheumatology
DX: M05.79 Rheumatoid arthritis with rheumatoid factor of multiple sites without organ or systems involvement (principal); M25.50 Pain in unspecified joint; M79.1 Myalgia; M15.0 Primary generalized (osteo)arthritis; E55.9 Vitamin D deficiency, unspecified; Z79.899 Other long term (current) drug therapy
CPT/HCPCS: 36415; 80053; 82306; 82550; 85025; 85652; 86140

== ENCOUNTER → 2017-09-05 | Outpatient (CLI) | payer MEDICARE, OTHER ==
[2017-09-05 10:56] LABS: CHOLESTEROL 198.14 mg/dL (0-200); TRIGLYCERIDES 98 mg/dL (<150)
[2017-09-05 11:07] LABS: DIRECT LDL 120 mg/dL (<100)
== END ==
LOC: OD 09:35
PROVIDERS: ATTEND Internal Medicine Nephrology
DX: E78.5 Hyperlipidemia, unspecified (principal)
CPT/HCPCS: 36415; 80061

== ENCOUNTER → 2017-12-29 | Outpatient (CLI) | payer MEDICARE, OTHER ==
[2017-12-29 13:12] LABS: ABSOLUTE EOSINOPHILS # (AUTO) 0.1 10^3/uL (0.0-0.6); ABSOLUTE LYMPHOCYTES (AUTO) 1.7 10^3/uL (0.5-4.7); ABSOLUTE MONOCYTES (AUTO) 0.4 10^3/uL (0.1-1.4); ABSOLUTE NEUT (AUTO) 3.1 10^3/uL (1.7-8.2); BASOPHILS % (AUTO) 0.7 % (0-2); EOSINOPHILS % (AUTO) 2.7 % (0-6); HEMATOCRIT 36.1 % (36.0-47.0); HEMOGLOBIN 12.3 g/dL (12.0-15.5); LYMPHOCYTES % (AUTO) 31.2 % (13-45); MEAN CORPUSCULAR HEMOGLOBIN 30.2 pg (27.0-33.4); MEAN CORPUSCULAR VOLUME 89 fl (80-97); PLATELET COUNT 206 10^3/uL (150-450); RED BLOOD COUNT 4.06 10^6/uL (3.72-5.28); SEGMENTED NEUTROPHILS % (AUTO) 58.4 % (42-78); TOTAL CELLS COUNTED % (AUTO) 100 %; WHITE BLOOD COUNT 5.4 10^3/uL (4.0-10.5)
[2017-12-29 13:23] LABS: ABSOLUTE EOSINOPHILS # (AUTO) 0.1 10^3/uL (0.0-0.6); ABSOLUTE LYMPHOCYTES (AUTO) 1.7 10^3/uL (0.5-4.7); ABSOLUTE MONOCYTES (AUTO) 0.4 10^3/uL (0.1-1.4); ABSOLUTE NEUT (AUTO) 3.1 10^3/uL (1.7-8.2); BASOPHILS % (AUTO) 0.7 % (0-2); EOSINOPHILS % (AUTO) 2.7 % (0-6); HEMATOCRIT 36.1 % (36.0-47.0); HEMOGLOBIN 12.3 g/dL (12.0-15.5); LYMPHOCYTES % (AUTO) 31.2 % (13-45); MEAN CORPUSCULAR HEMOGLOBIN 30.2 pg (27.0-33.4); MEAN CORPUSCULAR VOLUME 89 fl (80-97); PLATELET COUNT 206 10^3/uL (150-450); RED BLOOD COUNT 4.06 10^6/uL (3.72-5.28); SEGMENTED NEUTROPHILS % (AUTO) 58.4 % (42-78); TOTAL CELLS COUNTED % (AUTO) 100 %; WHITE BLOOD COUNT 5.4 10^3/uL (4.0-10.5)
[2017-12-29 13:24] LABS: APPEARANCE,URINE CLEAR; BILIRUBIN,URINE NEGATIVE (NEGATIVE); COLOR,URINE STRAW; GLUCOSE, URINE NEGATIVE (NEGATIVE); KETONES,URINE NEGATIVE (NEGATIVE); LEUKOCYTE ESTERASE,URINE TRACE (NEGATIVE); NITRITE,URINE NEGATIVE (NEGATIVE); PROTEIN,URINE NEGATIVE (NEGATIVE); URINE SPECIFIC GRAVITY 1.006; UROBILINOGEN,URINE NEGATIVE mg/dL (<2.0)
[2017-12-29 13:48] LABS: ALANINE AMINOTRANSFERASE 22 U/L (9-52); ALBUMIN 4.1 g/dL (3.5-5.0); ALKALINE PHOSPHATASE 85 U/L (38-126); ANION GAP 9 (5-19); ASPARTATE AMINO TRANSFERASE 18 U/L (14-36); BILIRUBIN,DIRECT 0.3 mg/dL (0.0-0.4); BILIRUBIN,TOTAL 0.4 mg/dL (0.2-1.3); BLOOD UREA NITROGEN 13 mg/dL (7-20); C-REACTIVE PROTEIN 5.8 mg/L (<10.0); CALCIUM 9.4 mg/dL (8.4-10.2); CARBON DIOXIDE 31 mmol/L (22-30); CHLORIDE 103 mmol/L (98-107); CREATINE KINASE 81 U/L (30-135); GLUCOSE 84 mg/dL (75-110); POTASSIUM 4.6 mmol/L (3.6-5.0); SODIUM 142.5 mmol/L (137-145); TOTAL PROTEIN 6.6 g/dL (6.3-8.2)
[2017-12-29 13:49] LABS: ANION GAP 9 (5-19); BLOOD UREA NITROGEN 13 mg/dL (7-20); CALCIUM 9.4 mg/dL (8.4-10.2); CARBON DIOXIDE 31 mmol/L (22-30); CHLORIDE 103 mmol/L (98-107); GLUCOSE 84 mg/dL (75-110); POTASSIUM 4.6 mmol/L (3.6-5.0); SODIUM 142.5 mmol/L (137-145)
[2017-12-29 14:09] LABS: ERYTHROCYTE SEDIMENTATION RATE 13 mm/hr (0-30)
--- NOTE | 2017-12-29 15:51 | RADIOLOGY REPORT (SQ) ---
EXAM DESCRIPTION: CHEST PA/LATERAL COMPLETED DATE/TIME: 12/29/2017 12:55 pm REASON FOR STUDY: PRE-OP COMPARISON: 09/02/2016 EXAM PARAMETERS: NUMBER OF VIEWS: two views TECHNIQUE: Digital Frontal and Lateral radiographic views of the chest acquired. RADIATION DOSE: NA LIMITATIONS: none FINDINGS: LUNGS AND PLEURA: No opacities, masses or pneumothorax. No pleural effusion. MEDIASTINUM AND HILAR STRUCTURES: No masses or contour abnormalities. HEART AND VASCULAR STRUCTURES: Heart normal size. No evidence for failure. BONES: No acute findings. HARDWARE: Posterior fusion lower thoracic- upper lumbar spine, stable findings. OTHER: Prior partially visualized right shoulder arthroplasty. IMPRESSION: 1 NO SIGNIFICANT RADIOGRAPHIC FINDING IN THE CHEST. TECHNICAL DOCUMENTATION: JOB ID: [id number] [employer]- All Rights Reserved Reading location - IP/workstation name: [email or web address]
--- NOTE | 2017-12-29 20:22 | EKG REPORT ---
SEVERITY:- ABNORMAL ECG - SINUS RHYTHM PROBABLE LEFT ATRIAL ABNORMALITY NONSPECIFIC IVCD WITH LAD LVH WITH SECONDARY REPOLARIZATION ABNORMALITY LATERAL INFARCT, AGE INDETERMINATE : Confirmed by: Essence Carpio MD 29-Dec-2017 20:20:51
== END ==
LOC: OD 11:53
PROVIDERS: ATTEND Internal Medicine Rheumatology
DX: Z01.810 Encounter for preprocedural cardiovascular examination (principal); Z01.812 Encounter for preprocedural laboratory examination; Z01.818 Encounter for other preprocedural examination; M05.79 Rheumatoid arthritis with rheumatoid factor of multiple sites without organ or systems involvement
CPT/HCPCS: 36415; 71046; 80048; 80053; 81001; 82306; 82550; 85025; 85652; 86140; 93005; 93010

== ENCOUNTER 2018-01-26 06:49 | Inpatient (IN) | payer MEDICARE, OTHER ==
--- NOTE | 2018-01-23 12:56 | Physician Advisory Note ---
Physician Advisor ProgressNote .: Pursuant to the plan for Todd Burt, I have reviewed the medical record for this patient. Physician Advisor Statement: H&P very nicely documents dx.s, sx, difficulty w/stairs & pain @night, non- operative measures tried & failed, exam. Patient with underlying osteoporosis & multiple fx.s requiring surgeries, at high risk for more fx.s due to falls if no TKA. Pre-op nurse nidhi gives further details on inability to do vigorous activities or walk >1mile, with significant limitations/difficulty in 1 flight stairs/ moving groceries/wqamird-zrjzlitd-ryydadlt/chores, & difficulty with toilet & dressing, etc. For status: 1. If patient is expected to go home the day after surgery as she hopes, please do surgery as outpatient, changing to Inpatient the next day if she can' t go home - & documenting reason(s) in notes & DCS. 2. If patient is expected to require at least 2 nights in hospital after surgery, please document all possible reasons you expect this, to support Inpatient status order. - Potential reasons noted so far in chart review = A. "multiple concerning co-morbidities that increase marlon-op risk, including chronic grade 2 diastolic heart failure with mild pulmonary hypertension (per ECHO 2017), COPD, asthma, SAHIL, repeated bouts of pneumonia in past including after shoulder surgery in 2017, RA & SLE, underlying depression (& anxiety?), ..." B. increased risk for post-op pneumonia due to chronic immunosuppression due to Plaquenil for RA & SLE C. increased risk for post-op pain control issues given ongoing need for opioid tx pre-op D. increased risk for post-op respiratory depression due to chronic use of temazepam & opioids E. need for extended close post-op monitoring due to increased risk for post-op CHF exacerbation due to underlying chronic diastolic heart failure (if she's never had acute exac before, she's "stage B chronic diastolic CHF") For surgical necessity: We need copy of pre-op x-ray/MRI findings report, or documenting of specifics of findings: joint space narrowing? osteophytes? subchondral sclerosis?.... Thanks! SANTI
[~2018-01-26 06:49] MED LIST changes: +ACETAMINOPHEN 0 MG/0 ML RTUPB IV ONE; +BUPIVACAINE HCL/DEX-WATER/PF 15 MG/2 ML AMPULE ONE; +CEFAZOLIN INJ 1 GM VIAL IV PRN; -CHONDR SU A NA/HYALUR INTRAOC KIT (SURGICARE) ONE; -EPINEPHRINE INJ/PF 1 MG/1 ML AMPULE ONE; +FENTANYL CITRATE INJ/PF 100 MCG/2 ML AMPUL ONE; +IBUPROFEN 800 MG/NS 250 ML IV PRN; -KETOROLAC TROMETHAMINE 0.45% 4 DROP/0.4 ML DROPERETTE OD PRN; +LACTATED RINGERS 1000 ML IV PRN; +LANSOPRAZOLE 15 MG TAB.RAP.DR PO PRN; +LIDOCAINE 0.5% INJ-PF (5 MG/ML) 50 ML SDV SUBCUT PRN; -LIDOCAINE 1% INJ-PF (10 MG/ML) 30 ML SDV ONE; +LIDOCAINE 2% INJ-PF (20 MG/ML) 10 ML AMPUL ONE; +MIDAZOLAM 2 MG/2 ML INJ ONE; +ONDANSETRON HCL INJ/PF 4 MG/2 ML SDV ONE; +OXYCODONE HCL SR 10 MG TABLET PO PRN; +PROPOFOL INJ 200 MG/20 ML VIAL IV ONE; +SCOPOLAMINE HYDROBROMIDE 1.5 MG PATCH.TD72 TOP PRN; +VANCOMYCIN HCL 1,000 MG in DEXTROSE 5%-WATER 250 ML IV PRN
[2018-01-26] MEDS ORDERED: BUPIVACAINE INJ/PF LIPOSOME/PF 266 MG/20 ML SDV ONE (06:57)
[2018-01-26] MEDS: BUPIVACAINE INJ/PF LIPOSOME/PF 266 MG/20 ML SDV IJ PRN ×2 (07:32→09:29)
[2018-01-26 07:35] LABS: PROTHROMBIN TIME 12.6 SEC (11.4-15.4)
[2018-01-26 07:36] LABS: PARTIAL THROMBOPLASTIN TIME 28.5 SEC (23.5-35.8)
[2018-01-26] MEDS: THROMBIN (BOVINE) 5000 UNIT EPITAXIS KIT ONE ×2 (07:38→09:29)
[2018-01-26] MEDS: THROMBIN (BOVINE) TOPICAL 20000 UNIT VIAL ONE ×2 (07:39→09:29)
[2018-01-26] MEDS ORDERED: ACETAMINOPHEN 1,000 MG/100 ML RTUPB IV ONE (09:07)
[2018-01-26] MEDS ORDERED: CEFAZOLIN INJ 1 GM VIAL ONE (09:08)
[2018-01-26] MEDS ORDERED: PROMETHAZINE HCL INJ 25 MG/1 ML VIAL IV PRN ×2 (09:30)
[2018-01-26] MEDS ORDERED: DIPHENHYDRAMINE HCL 50 MG/ML VIAL IV PRN ×2 (09:30→09:54)
[2018-01-26] MEDS ORDERED: MORPHINE SULFATE 10 MG/ML INJ IV PRN ×4 (09:30→09:54)
[2018-01-26] MEDS ORDERED: MEPERIDINE HCL/PF INJ 25 MG/1 ML DISP.SYRIN IV PRN (09:30)
[2018-01-26] MEDS ORDERED: ONDANSETRON HCL INJ/PF 4 MG/2 ML SDV IV PRN (09:30)
[2018-01-26] MEDS ORDERED: FENTANYL CITRATE INJ/PF 100 MCG/2 ML AMPUL IV PRN ×3 (09:30)
[2018-01-26] MEDS ORDERED: ACETAMINOPHEN 325 MG TABLET PO PRN (09:54)
[2018-01-26] MEDS ORDERED: MAG HYDROX/AL HYDROX/SIMETH SUSP 30 ML UDCUP PO PRN (09:54)
[2018-01-26] MEDS ORDERED: ONDANSETRON 4 MG TAB.RAPDIS PO PRN (09:54)
[2018-01-26] MEDS ORDERED: MORPHINE SULFATE 10 MG/ML INJ IM PRN (09:54)
[2018-01-26] MEDS ORDERED: RINGERS SOLUTION,LACTATED 1,000 ML IV PRN (09:54)
[2018-01-26] MEDS ORDERED: [UNRECOGNIZED DRUG - OTHER] PO SCH (10:00)
[2018-01-26] MEDS ORDERED: LORATADINE PO SCH (10:00)
[2018-01-26] MEDS ORDERED: COLESTIPOL HCL PO SCH (10:00)
[2018-01-26] MEDS ORDERED: (PENDING PHARMACY ID) (Albuterol Sulfate [Proair Respiclick] 2 PUFF) IH SCH (10:00)
[2018-01-26] MEDS ORDERED: (PENDING PHARMACY ID) (Rabeprazole Sodium [Aciphex] 20 MG) PO SCH (10:00)
[2018-01-26] MEDS ORDERED: PSEUDOEPHEDRINE HCL 30 MG TABLET PO PRN (10:36)
--- NOTE | 2018-01-26 10:59 | RADIOLOGY REPORT (SQ) ---
EXAM DESCRIPTION: KNEE RIGHT 2 VIEWS COMPLETED DATE/TIME: 01/26/2018 10:48 am REASON FOR STUDY: Post OP -Long Cassette in PACU M17.11 UNILATERAL PRIMARY OSTEOARTHRITIS, RIGHT KN EE COMPARISON: None. NUMBER OF VIEWS: 2 view(s). TECHNIQUE: Digital radiographic images of the right knee post-procedure. LIMITATIONS: None. FINDINGS: BONES: No worrisome or unexpected findings post-procedure. DEVICE: Patient is status post right total knee replacement. The prosthesis appears well seated in t he distal femur and proximal tibia in the projections obtained SOFT TISSUES: No worrisome findings. Expected postoperative soft tissue changes. IMPRESSION: SATISFACTORY POSTOPERATIVE RIGHT KNEE. TECHNICAL DOCUMENTATION: JOB ID: [id number] [employer] All Rights Reserved Reading location - IP/workstation name: [email or web address]
[2018-01-26] MEDS ORDERED: TRANEXAMIC ACID INJ/PF 1,000 MG/10 ML SDV IV ONE ×2 (11:16→12:00)
[2018-01-26] MEDS: OXYCODONE HCL IR 5 MG TABLET PO PRN ×2 (12:19→19:27)
[2018-01-26] MEDS: CITALOPRAM HYDROBROMIDE 20 MG TABLET PO SCH (13:29)
[2018-01-26] MEDS: IBUPROFEN 800 MG in NORMAL SALINE 250 ML IV SCH ×2 (14:13→21:20)
[2018-01-26] MEDS: FLUTICASONE/SALMETEROL DISKUS 500-50 MCG/DOSE IH SCH ×2 (14:33→21:16)
[2018-01-26] MEDS: METOPROLOL SUCCINATE 50 MG TAB.SR.24H PO SCH (15:56)
[2018-01-26] MEDS: PRENATAL VITAMIN W DHA CAPSULE PO SCH (15:56)
[2018-01-26] MEDS: OXYCODONE HCL SR 10 MG TABLET PO SCH ×2 (15:56→21:17)
[2018-01-26] MEDS: LISINOPRIL 10 MG TABLET PO SCH (15:56)
[2018-01-26] MEDS: HYDROXYCHLOROQUINE SULFATE 200 MG TABLET PO SCH (17:17)
[2018-01-26] MEDS: SENNOSIDES/DOCUSATE 8.6-50 MG 1 EACH TABLET PO SCH (17:17)
[2018-01-26] MEDS ORDERED: LANSOPRAZOLE 30 MG TAB.RAP.DR PO SCH (18:00)
[2018-01-26] MEDS: ONDANSETRON HCL INJ/PF 4 MG/2 ML SDV IV PRN (19:52)
[2018-01-26] MEDS ORDERED: PHENYLEPHRINE HCL INJ/PF 10 MG/1 ML SDV ONE (20:04)
[2018-01-26] MEDS: CYCLOBENZAPRINE HCL 10 MG TABLET PO SCH (21:17)
[2018-01-26] MEDS: GABAPENTIN 300 MG CAPSULE PO SCH (21:18)
[2018-01-26] MEDS: SIMVASTATIN 40 MG TABLET PO SCH (21:18)
[2018-01-26] MEDS: MONTELUKAST SODIUM 10 MG TABLET PO SCH (21:18)
[2018-01-26] MEDS: ROPINIROLE HCL 1 MG TABLET PO SCH (21:19)
[2018-01-26] MEDS: TIZANIDINE HCL 4 MG TABLET PO SCH (21:19)
[2018-01-26] MEDS: EZETIMIBE 10 MG TABLET PO SCH (21:19)
[2018-01-26] MEDS ORDERED: EZETIMIBE PO SCH (22:00)
[2018-01-26] MEDS ORDERED: VANCOMYCIN HCL 1,000 MG in DEXTROSE 5%-WATER 250 ML IV ONE (22:00)
[2018-01-26] MEDS ORDERED: (PENDING PHARMACY ID) (Cyclobenzaprine Hcl [Flexeril 5 Mg Tablet] 5 MG) PO SCH (22:00)
[2018-01-26] MEDS ORDERED: (PENDING PHARMACY ID) (Tizanidine Hcl [Zanaflex] 4 MG) PO SCH (22:00)
[2018-01-26] MEDS ORDERED: SIMVASTATIN PO SCH (22:00)
[2018-01-26] MEDS ORDERED: (PENDING PHARMACY ID) (Gabapentin [Neurontin] 1,800 MG) PO SCH (22:00)
[2018-01-27] MEDS: OXYCODONE HCL IR 5 MG TABLET PO PRN ×2 (05:53→14:22)
[2018-01-27] MEDS: IBUPROFEN 800 MG in NORMAL SALINE 250 ML IV SCH (05:53)
[2018-01-27] MEDS: LANSOPRAZOLE 30 MG TAB.RAP.DR PO SCH (06:01)
--- NOTE | 2018-01-27 06:51 | PDOC PROGRESS REPORT ---
Subjective Progress Note for:: 01/27/18 Reason For Visit: M17.11 UNILATERAL PRIMARY OSTEOARTHRITIS, RIGHT KN 67-year-old white female postop day 1 from right knee arthroplasty. Patient ambulated 40 feet with physical therapy yesterday. T-max last night of 38.1 Celsius. Physical Exam Vital Signs: Temp Pulse Resp BP Pulse Ox 38.1 C H 70 20 116/51 L 93 01/26/18 23:56 01/26/18 23:56 01/26/18 23:56 01/26/18 23:56 01/26/18 23:56 Intake & Output 01/25/18 01/26/18 01/27/18 06:59 06:59 06:59 Intake Total 5438 Output Total 1975 Balance 3463 Weight 65.2 kg General appearance: PRESENT: no acute distress, mild distress Head exam: PRESENT: normocephalic Respiratory exam: PRESENT: unlabored Cardiovascular exam: PRESENT: RRR Pulses: PRESENT: +1 pedal pulses bilateral Vascular exam: PRESENT: normal capillary refill GI/Abdominal exam: PRESENT: soft Rectal exam: PRESENT: deferred Extremities exam: PRESENT: other - Right knee dressing intact. Distal neurovascular examination is intact. Neurological exam: PRESENT: alert, awake, oriented to person, oriented to place , oriented to time, oriented to situation. ABSENT: motor sensory deficit Psychiatric exam: PRESENT: appropriate affect, normal mood. ABSENT: homicidal ideation, suicidal ideation Skin exam: PRESENT: dry, intact, warm. ABSENT: cyanosis, rash Results Laboratory Results: 01/26/18 07:20 01/26/18 07:20 Potassium 4.4 Impressions: Knee X-Ray 01/26/18 09:55 IMPRESSION: SATISFACTORY POSTOPERATIVE RIGHT KNEE. Status: Imported from PACS Assessment & Plan - Diagnosis (1) Arthritis of right knee Is this a current diagnosis for this admission?: Yes Plan: Patient to continue with physical therapy for weightbearing as tolerated ambulation. - Time Time Spent with patient: 15-24 minutes Anticipated discharge: Home with Homehealth Within: within 24 hours
[2018-01-27 07:16] LABS: HEMATOCRIT 27.7 % (36.0-47.0); HEMOGLOBIN 9.4 g/dL (12.0-15.5); MEAN CORPUSCULAR HEMOGLOBIN 30.5 pg (27.0-33.4); MEAN CORPUSCULAR VOLUME 90 fl (80-97); PLATELET COUNT 131 10^3/uL (150-450); RED BLOOD COUNT 3.08 10^6/uL (3.72-5.28); WHITE BLOOD COUNT 4.3 10^3/uL (4.0-10.5)
[2018-01-27 07:37] LABS: ANION GAP 9 (5-19); BLOOD UREA NITROGEN 12 mg/dL (7-20); CALCIUM 8.1 mg/dL (8.4-10.2); CARBON DIOXIDE 25 mmol/L (22-30); CHLORIDE 98 mmol/L (98-107); GLUCOSE 112 mg/dL (75-110); POTASSIUM 4.5 mmol/L (3.6-5.0); SODIUM 132.4 mmol/L (137-145)
[2018-01-27] MEDS: FLUTICASONE/SALMETEROL DISKUS 500-50 MCG/DOSE IH SCH ×2 (09:46→22:14)
[2018-01-27] MEDS: HYDROXYCHLOROQUINE SULFATE 200 MG TABLET PO SCH ×2 (09:46→17:06)
[2018-01-27] MEDS: PRENATAL VITAMIN W DHA CAPSULE PO SCH (09:46)
[2018-01-27] MEDS: ASPIRIN 81 MG TABLET, ENT COATED PO SCH (09:46)
[2018-01-27] MEDS: CITALOPRAM HYDROBROMIDE 20 MG TABLET PO SCH (09:46)
[2018-01-27] MEDS: METOPROLOL SUCCINATE 50 MG TAB.SR.24H PO SCH (09:47)
[2018-01-27] MEDS: LISINOPRIL 10 MG TABLET PO SCH (09:47)
[2018-01-27] MEDS: LORATADINE 10 MG TABLET PO SCH (09:47)
[2018-01-27] MEDS: SENNOSIDES/DOCUSATE 8.6-50 MG 1 EACH TABLET PO SCH ×2 (09:47→17:02)
[2018-01-27] MEDS: OXYCODONE HCL SR 10 MG TABLET PO SCH ×2 (11:02→22:16)
--- NOTE | 2018-01-27 12:31 | Physician Advisory Note ---
Physician Advisor ProgressNote .: [facility] I have reviewed the medical record for this patient. Physician Advisor Statement: Please consider documenting, if you agree: 1. "precipitous drop in H/H, suspect due to " (Hgb was 12.3 pre-op, 9.4 today - ?acute blood loss, or from IVF only?) 2. "Acute hyponatremia, suspect due to " Status: Pt w/N/V overnight, mild fever new just before MN. O2 sat dropped from initial high 90s on RA to as low as 88% at 20:06. Only walked 40ft w/PT on day of surgery. Now w/hyponatremia, significant anemia. Too sleepy for PT this a.m. Not ready for d/c yet today. Appropriate for Inpatient status, as expected. Thanks! CK
[2018-01-27] MEDS: IBUPROFEN 800 MG in DEXTROSE 5%-WATER 250 ML IV SCH ×2 (13:00→22:13)
[2018-01-27] MEDS: ROPINIROLE HCL 1 MG TABLET PO SCH (22:14)
[2018-01-27] MEDS: GABAPENTIN 300 MG CAPSULE PO SCH (22:14)
[2018-01-27] MEDS: SIMVASTATIN 40 MG TABLET PO SCH (22:15)
[2018-01-27] MEDS: CYCLOBENZAPRINE HCL 10 MG TABLET PO SCH (22:15)
[2018-01-27] MEDS: MONTELUKAST SODIUM 10 MG TABLET PO SCH (22:15)
[2018-01-27] MEDS: TIZANIDINE HCL 4 MG TABLET PO SCH (22:15)
[2018-01-27] MEDS: EZETIMIBE 10 MG TABLET PO SCH (22:15)
[2018-01-28] MEDS: IBUPROFEN 800 MG in DEXTROSE 5%-WATER 250 ML IV SCH (05:18)
[2018-01-28] MEDS: LANSOPRAZOLE 30 MG TAB.RAP.DR PO SCH (05:18)
[2018-01-28] MEDS: ONDANSETRON HCL INJ/PF 4 MG/2 ML SDV IV PRN (05:21)
[2018-01-28 05:46] LABS: HEMATOCRIT 26.2 % (36.0-47.0); HEMOGLOBIN 9.3 g/dL (12.0-15.5); MEAN CORPUSCULAR HEMOGLOBIN 31.1 pg (27.0-33.4); MEAN CORPUSCULAR HGB CONC 35.3 g/dL (32.0-36.0); MEAN CORPUSCULAR VOLUME 88 fl (80-97); PLATELET COUNT 128 10^3/uL (150-450); RED BLOOD COUNT 2.97 10^6/uL (3.72-5.28); RED CELL DISTRIBUTION WIDTH 12.8 % (11.5-14.0); WHITE BLOOD COUNT 8.5 10^3/uL (4.0-10.5)
--- NOTE | 2018-01-28 07:26 | PDOC DISCHARGE SUMMARY ---
General - Admit/Disc Date/PCP Admission Date/Primary Care Provider: 01/26/18 06:49 SMOOTH GARCIA MD Discharge Date: 01/28/18 - Discharge Diagnosis (1) Arthritis of right knee Is this a current diagnosis for this admission?: Yes - Additional Information Resuscitation Status: Full Code Discharge Diet: As Tolerated, Regular Discharge Activity: Balance Activity w/Rest, No Driving, No tub bath Home Medications: Albuterol Sulfate [Albuterol Sulfate 2.5mg/3 mL] 1 vial IH RTQ6HP PRN 01/26/18 Albuterol Sulfate [Proair HFA Inhalation Aerosol 8.5 gm MDI] 2 puff IH QIDP PRN 01/26/18 Aspirin [Aspirin EC] 81 mg PO DAILY 01/26/18 Butalb/Acetaminophen/Caffeine [Fioricet (50-325-40 mg) Tablet] 1 tab PO Q12HP PRN 01/26/18 Citalopram Hydrobromide [Celexa 20 mg Tablet] 20 mg PO DAILY 01/26/18 Colestipol HCl [Colestid 5 gm Packet] 10 gm PO BIDP PRN 01/26/18 Cyclobenzaprine HCl [Flexeril 5 mg Tablet] 5 mg PO QHS 01/26/18 Ezetimibe/Simvastatin [Vytorin 10-40 mg Tablet] 1 each PO QHS 01/26/18 Fluticasone Propionate [Flonase Nasal [place] 50 Mcg/[place]ox 16 gm] 1 spray NASL DAILY 01/26/18 Fluticasone/Salmeterol [Advair 500-50 Diskus 14 Dose/Diskus] 1 inh IH Q12 Gabapentin [Neurontin] 1,800 mg PO QHS 01/26/18 Hydrocodone/Acetaminophen [[place] 7.5-325 mg Tablet] 1 tab PO Q6HP PRN 01/26/18 Hydroxychloroquine Sulfate [Plaquenil 200 mg Tablet] 200 mg PO BID 01/26/18 Lisinopril [Prinivil 10 mg Tablet] 10 mg PO DAILY 01/26/18 Loratadine/Pseudoephedrine [Claritin-D 24 Hour Tablet] 1 each PO DAILY 01/26/18 Metoprolol Succinate [Toprol XL 100 mg Tablet] 100 mg PO DAILY 01/26/18 Montelukast Sodium [Singulair 10 mg Tablet] 10 mg PO QHS 01/26/18 Rabeprazole Sodium [Aciphex] 20 mg PO BIDACBS 01/26/18 Ropinirole HCl [Requip 2 mg Tablet] 2 mg PO QHS 01/26/18 Temazepam [Restoril] 30 mg PO HSP PRN 01/26/18 Tizanidine HCl [Zanaflex 4 mg Tablet] 4 mg PO QHS 01/26/18 Aspirin [Ecotrin 81 mg EC Tablet] 81 mg PO DAILY tabec 01/28/18 Gabapentin [Neurontin 300 mg Capsule] 1,800 mg PO QHS capsule 01/28/18 Hydroxychloroquine Sulfate [Plaquenil 200 mg Tablet] 200 mg PO BID tablet 01/28 Lansoprazole [Prevacid 30 mg Odt Tablet] 30 mg PO Q6AM tab.daylin. 01/28/18 Lisinopril [Prinivil 10 mg Tablet] 10 mg PO DAILY tablet 01/28/18 Loratadine [Claritin 10 mg Tablet] 10 mg PO DAILY tablet 01/28/18 Montelukast Sodium [Singulair 10 mg Tablet] 10 mg PO QHS tablet 01/28/18 Oxycodone HCl [Oxy-Ir 5 mg Tablet] 5 mg PO Q6HP PRN tablet 01/28/18 Tizanidine HCl [Zanaflex 4 mg Tablet] 4 mg PO QHS tablet 01/28/18 History of Present Illness History of Present Illness: MIREYA TORRES is a 67 year old female Patient is a 67-year-old white female with progressive right knee pain and functional disability secondary osteoarthritis. Patient is admitted for an elective right knee arthroplasty. Hospital Course Hospital Course: Patient is admitted through the operating room where she undergoes unconjugated right knee arthroplasty. She is returned to floor in satisfactory condition. Initially nausea and vomiting delay the patient's participation with physical therapy. She makes excellent progress on the first postoperative day and is ready for discharge on the second postoperative day. Dressing is changed on the right knee on the second postoperative day. Wound is well approximated clean and dry. Monico intact. Physical Exam Vital Signs: Temp Pulse Resp BP Pulse Ox 36.8 C 74 17 129/64 H 100 01/27/18 23:01 01/27/18 23:01 01/27/18 23:01 01/27/18 23:01 01/28/18 00:33 Intake & Output 01/27/18 01/28/18 01/29/18 06:59 06:59 06:59 Intake Total 5688 2977 Output Total 1975 Balance 3713 2977 Weight 65.2 kg 77 kg General appearance: PRESENT: no acute distress Head exam: PRESENT: normocephalic Respiratory exam: PRESENT: unlabored Cardiovascular exam: PRESENT: RRR Pulses: PRESENT: +1 pedal pulses bilateral Vascular exam: PRESENT: normal capillary refill GI/Abdominal exam: PRESENT: soft Rectal exam: PRESENT: deferred Extremities exam: PRESENT: other - Right knee dressing is changed on postop day #2. Wound is well approximated monico. Is clean and dry. There is minimal pedal edema. Distal neurovascular examination is intact. Neurological exam: PRESENT: alert, awake, oriented to person, oriented to place , oriented to time, oriented to situation. ABSENT: motor sensory deficit Psychiatric exam: PRESENT: appropriate affect, normal mood. ABSENT: homicidal ideation, suicidal ideation Skin exam: PRESENT: dry, intact, warm. ABSENT: cyanosis, rash Results Laboratory Results: 01/28/18 04:32 01/27/18 06:37 01/27/18 01/28/18 06:37 04:32 WBC 8.5 RBC 2.97 L Hgb 9.3 L Hct 26.2 L MCV 88 MCH 31.1 MCHC 35.3 RDW 12.8 Plt Count 128 L Sodium 132.4 L Potassium 4.5 Chloride 98 Carbon Dioxide 25 Anion Gap 9 BUN 12 Creatinine 0.80 Est GFR ( Amer) > 60 Est GFR (Non-Af Amer) > 60 Glucose 112 H Calcium 8.1 L Impressions: Knee X-Ray 01/26/18 09:55 IMPRESSION: SATISFACTORY POSTOPERATIVE RIGHT KNEE. Status: Imported from PACS Qualifiers - * PATIENT BEING DISCHARGED WITH ANY OF THE FOLLOWING DIAGNOSIS: No VTE patient discharged on overlapping Therapy?: Yes Plan Discharge Plan: Patient be discharged home with home health nursing, home health physical therapy, and DME. Follow-up with Dr. Flaquito Loo [place] for surgery in 2 weeks for staple removal. Time Spent: Less than 30 Minutes
[2018-01-28] MEDS: OXYCODONE HCL IR 5 MG TABLET PO PRN (07:41)
[2018-01-28] MEDS: SENNOSIDES/DOCUSATE 8.6-50 MG 1 EACH TABLET PO SCH (09:45)
[2018-01-28] MEDS: METOPROLOL SUCCINATE 50 MG TAB.SR.24H PO SCH (09:50)
[2018-01-28] MEDS: PRENATAL VITAMIN W DHA CAPSULE PO SCH (09:50)
[2018-01-28] MEDS: LORATADINE 10 MG TABLET PO SCH (09:50)
[2018-01-28] MEDS: ASPIRIN 81 MG TABLET, ENT COATED PO SCH (09:51)
[2018-01-28] MEDS: CITALOPRAM HYDROBROMIDE 20 MG TABLET PO SCH (09:51)
[2018-01-28] MEDS: FLUTICASONE/SALMETEROL DISKUS 500-50 MCG/DOSE IH SCH (09:52)
[2018-01-28] MEDS: LISINOPRIL 10 MG TABLET PO SCH (09:52)
[2018-01-28] MEDS: HYDROXYCHLOROQUINE SULFATE 200 MG TABLET PO SCH (09:53)
[2018-01-28 12:22] VITALS: BP 151/59
--- NOTE | 2018-02-21 07:24 | Operative Report ---
Operative Report DATE OF SURGERY: 01/26/18 PREOPERATIVE DIAGNOSIS: Right knee arthritis OPERATION: Right knee arthroplasty SURGEON: RUDDY HEART ANESTHESIA: Spinal TISSUE REMOVED OR ALTERED: Bone to pathology ESTIMATED BLOOD LOSS: 100 PROCEDURE: Implants used: Femur: Mirna triathlon size 5 CR femur Tibia: 4 tibia Tibial liner: 9 mm CS insert Patella: 32 mm oval patella Procedure with the patient supine on the operating table the right the limb is prepped and draped in a sterile fashion. The limb was elevated for exsanguination and the tourniquet inflated to 280 torr. A standard midline median parapatellar approach the knee is taken. Access is gained to the femoral canal through the intercondylar notch. Intramedullary alignment instrumentation used to resect 10 mm of distal femur in 5 of valgus. Sizing guide indicated a size 5 femur. Appropriate cutting jig is then used to fashion anterior posterior and chamfer cuts. A trial reduction femurs performed and this is judged to be adequate. Attention was next turned to the tibia. Using an extra medullary alignment system 9 millimeters was resected off the lateral tibial plateau. This is sized to a size 4 tibia. A trial reduction was now performed with a 5 femur and a for tibia using a 9 millimeters spacer. It is full extension and central patellofemoral tracking. The articular surface the patella was next resected using an oscillating saw. All trial implants were removed. Polymethylmethacrylate is mixed and used to cement the above implants in place. On adequate curing the cement excess cement was removed the tourniquet was deflated hemostasis obtained the wound is then closed in layers using interrupted Vicryl followed by kaycee. A sterile compressive dressing was applied and the patient returned to recovery room in satisfactory condition.
== END 2018-01-28 12:44 | disposition home health service (06) | DRG 470 ==
LOC: INOR 06:49 → 4S 11:59
PROVIDERS: ADMIT Orthopaedic Surgery; ATTEND Orthopaedic Surgery
PROC: 0SRC0J9 Replacement of Right Knee Joint with Synthetic Substitute, Cemented, Open Approach (ICD-10-PCS; principal; 2018-01-26 08:45)
DX: M17.11 Unilateral primary osteoarthritis, right knee (principal); G25.81 Restless legs syndrome; G47.00 Insomnia, unspecified; K58.9 Irritable bowel syndrome, unspecified; E78.00 Pure hypercholesterolemia, unspecified; G43.909 Migraine, unspecified, not intractable, without status migrainosus; I10 Essential (primary) hypertension; F32.9 Major depressive disorder, single episode, unspecified; J45.909 Unspecified asthma, uncomplicated; G47.30 Sleep apnea, unspecified; F17.210 Nicotine dependence, cigarettes, uncomplicated; Z96.643 Presence of artificial hip joint, bilateral; I25.2 Old myocardial infarction; Z79.899 Other long term (current) drug therapy; Z88.0 Allergy status to penicillin; Z83.3 Family history of diabetes mellitus; Z82.49 Family history of ischemic heart disease and other diseases of the circulatory system; Z90.12 Acquired absence of left breast and nipple; Z90.710 Acquired absence of both cervix and uterus
CPT/HCPCS: 01402; 36415; 80048; 84132; 85027; 85610; 85730; 88305; 88311; 94799; C1713; C1776; C9290; G8978-GP; G8979-GP; J0131; J0690; J1741; J2250; J2270; J2370; J2405; J2704; J3010; J3370; J3490; J7050; J7060; J7120

== ENCOUNTER → 2018-05-04 | Outpatient (CLI) | payer MEDICARE, OTHER ==
[2018-05-04 08:29] LABS: ABSOLUTE EOSINOPHILS # (AUTO) 0.2 10^3/uL (0.0-0.6); ABSOLUTE LYMPHOCYTES (AUTO) 1.8 10^3/uL (0.5-4.7); ABSOLUTE MONOCYTES (AUTO) 0.5 10^3/uL (0.1-1.4); ABSOLUTE NEUT (AUTO) 3.5 10^3/uL (1.7-8.2); BASOPHILS % (AUTO) 0.8 % (0-2); EOSINOPHILS % (AUTO) 2.9 % (0-6); HEMOGLOBIN 12.6 g/dL (12.0-15.5); LYMPHOCYTES % (AUTO) 30.2 % (13-45); MEAN CORPUSCULAR HEMOGLOBIN 29.6 pg (27.0-33.4); MEAN CORPUSCULAR HGB CONC 33.3 g/dL (32.0-36.0); MEAN CORPUSCULAR VOLUME 89 fl (80-97); MONOCYTES % (AUTO) 8.3 % (3-13); PLATELET COUNT 199 10^3/uL (150-450); RED BLOOD COUNT 4.27 10^6/uL (3.72-5.28); RED CELL DISTRIBUTION WIDTH 13.9 % (11.5-14.0); SEGMENTED NEUTROPHILS % (AUTO) 57.8 % (42-78); TOTAL CELLS COUNTED % (AUTO) 100 %
[2018-05-04 08:39] LABS: APPEARANCE,URINE SLIGHTLY-CLOUDY; BILIRUBIN,URINE NEGATIVE (NEGATIVE); COLOR,URINE YELLOW; GLUCOSE, URINE NEGATIVE (NEGATIVE); KETONES,URINE NEGATIVE (NEGATIVE); LEUKOCYTE ESTERASE,URINE LARGE (NEGATIVE); NITRITE,URINE NEGATIVE (NEGATIVE); PROTEIN,URINE NEGATIVE (NEGATIVE); UROBILINOGEN,URINE NEGATIVE mg/dL (<2.0)
[2018-05-04 09:06] LABS: ALANINE AMINOTRANSFERASE 17 U/L (9-52); ALBUMIN 4.4 g/dL (3.5-5.0); ALKALINE PHOSPHATASE 82 U/L (38-126); ANION GAP 11 (5-19); ASPARTATE AMINO TRANSFERASE 19 U/L (14-36); BILIRUBIN,DIRECT 0.4 mg/dL (0.0-0.4); BILIRUBIN,TOTAL 0.4 mg/dL (0.2-1.3); BLOOD UREA NITROGEN 20 mg/dL (7-20); CALCIUM 9.9 mg/dL (8.4-10.2); CARBON DIOXIDE 29 mmol/L (22-30); CHLORIDE 103 mmol/L (98-107); CHOLESTEROL 131.68 mg/dL (0-200); GLUCOSE 91 mg/dL (75-110); POTASSIUM 5.1 mmol/L (3.6-5.0); SODIUM 142.6 mmol/L (137-145); TOTAL PROTEIN 6.9 g/dL (6.3-8.2); TRIGLYCERIDES 54 mg/dL (<150)
[2018-05-04 09:17] LABS: DIRECT LDL 67 mg/dL (<100)
== END ==
LOC: OD 07:44
PROVIDERS: ATTEND Internal Medicine Nephrology
DX: I10 Essential (primary) hypertension (principal); E78.5 Hyperlipidemia, unspecified
CPT/HCPCS: 36415; 80053; 80061; 81001; 85025

== ENCOUNTER → 2019-04-08 | Outpatient (CLI) | payer MEDICARE, OTHER ==
--- NOTE | 2019-04-08 14:04 | WOMENS IMAGING REPORT ---
EXAM DESCRIPTION: RIGHT SCREENING MAMMO W/CAD COMPLETED DATE/TIME: 04/08/2019 1:44 pm REASON FOR STUDY: Z12.31 SCREENING MAMMO Z12.31 ENCNTR SCREEN MAMMOGRAM FOR MALIGNANT NEOPLASM OF B RE COMPARISON: 08/04/2017 and 07/16/2016. EXAM PARAMETERS: Standard craniocaudal and mediolateral oblique views of the breast recorded using d igital acquisition. Read with the assistance of CAD. .[facility], LATER [facility] - [employer] Version 9.2 LIMITATIONS: None. FINDINGS: BREAST LATERALITY: right No suspicious masses, suspicious calcifications or architectural distortion. No areas of concern. IMPRESSION: NORMAL MAMMOGRAM. BIRADS 1. BREAST DENSITY: b. There are scattered areas of fibroglandular density. BIRAD: ASSESSMENT: 1 NEGATIVE RECOMMENDATION: RECOMMENDATION: ROUTINE SCREENING. COMMENT: The patient has been notified of the results by letter per SA requirements. Additional no tification policies are in place for contacting patient with suspicious or incomplete findings. Quality ID #225: The [employer] recommends an annual screening mammogram for women aged 40 years or over. This facility utilizes a reminder system to ensure that all patients receive reminder letters, and/or direct phone calls for appointments. This includes reminders for routine scr eening mammograms, diagnostic mammograms, or other Breast Imaging Interventions when appropriate. Th is patient will be placed in the appropriate reminder system. TECHNICAL DOCUMENTATION: FINDING NUMBER: (1) ASSESSMENT: (1) JOB ID: [id number] [employer]- All Rights Reserved Reading location - IP/workstation name: [email or web address]
== END ==
LOC: WI 13:15
PROVIDERS: ATTEND Internal Medicine Nephrology
DX: Z12.31 Encounter for screening mammogram for malignant neoplasm of breast (principal)

== ENCOUNTER → 2019-05-06 | Outpatient (CLI) | payer MEDICARE, OTHER ==
--- NOTE | 2019-05-06 14:40 | RADIOLOGY REPORT (SQ) ---
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 Images reviewed with lung, soft tissue and bone windows. Reconstructed coronal and sagittal MPR and MIP images reviewed. All images stored on PACS. All CT scanners at this facility use dose modulation, iterative reconstruction, and/or weight based d osing when appropriate to reduce radiation dose to as low as reasonably achievable (ALARA). [facility]: Dose Right [facility]: CareDose [facility]: Dose Right [facility]: Teradose 4D [facility]: anchor.travel CONTRAST TYPE AND DOSE: contrast/concentration: Isovue 350.00 mg/ml; Total Contrast Delivered: 80.0 ml; Total Saline Delivered: 55.0 ml RENAL FUNCTION: BUN 14 creatinine 0.85 RADIATION DOSE: CT Rad equipment meets quality standard of care and radiation dose reduction techniq ues were employed. CTDIvol: 5.0 mGy. DLP: 215 mGy-cm. . LIMITATIONS: None. FINDINGS: LUNGS AND PLEURA: Mild centrilobular emphysematous changes in the upper lobes. There are multiple very small peripheral pulmonary nodules. The largest is in the right lung and measures 4 mm . The 3 largest lesions are all on the right and are all present on the prior CT. HILAR AND MEDIASTINAL STRUCTURES: No identified masses or abnormal nodes. HEART AND VASCULAR STRUCTURES: No aneurysm or dissection. No central pulmonary emboli. No pericardi al effusion. Aortic atherosclerosis. HARDWARE: Hardware in the lower thoracic/ lumbar spine and in the right shoulder. No hardware within the chest UPPER ABDOMEN: No significant findings. Limited exam. THYROID AND OTHER SOFT TISSUES: No masses. No adenopathy. BONES: Hardware in the lower thoracic/ lumbar spine. Kyphoplasty changes in the lower thoracic spine . OTHER: No other significant finding. IMPRESSION: 1. Mild pulmonary emphysema. 2. There are multiple generally tiny pulmonary nodules bilaterally. The largest in the right lung m easures 4 mm and is seen on the prior study. 3. Aortic atherosclerosis. COMMENT: F[place]ISCHNER CRITERIA FOR FOLLOW-UP OF PULMONARY NODULES Incidentally detected new nodules in persons 35 or older. HIGH RISK: History of smoking or other known risk factors. <6mm multiple solid nodules: LOW RISK: no routine followup. HIGH RISK: optional CT 12 mo. TECHNICAL DOCUMENTATION: JOB ID: [id number] Quality ID # [id number]: Final reports with documentation of one or more dose reduction techniques (e.g., Au tomated exposure control, adjustment of the mA and/or kV according to patient size, use of iterative reconstruction technique) 2010 [employer]- All Rights Reserved Reading location - IP/workstation name: [email or web address]
== END ==
LOC: RAD 12:52
PROVIDERS: ATTEND Internal Medicine Critical Care Medicine
DX: Q25.40 Congenital malformation of aorta unspecified (principal); R91.1 Solitary pulmonary nodule; K21.9 Gastro-esophageal reflux disease without esophagitis; M06.9 Rheumatoid arthritis, unspecified; J43.9 Emphysema, unspecified; J45.909 Unspecified asthma, uncomplicated; R06.09 Other forms of dyspnea; M32.9 Systemic lupus erythematosus, unspecified
CPT/HCPCS: 71260

== ENCOUNTER → 2019-05-06 | Outpatient (CLI) | payer MEDICARE, OTHER ==
[2019-05-06 13:19] LABS: ANION GAP 6 (5-19); BLOOD UREA NITROGEN 14 mg/dL (7-20); CALCIUM 9.4 mg/dL (8.4-10.2); CARBON DIOXIDE 32 mmol/L (22-30); CHLORIDE 99 mmol/L (98-107); GLUCOSE 80 mg/dL (75-110); POTASSIUM 4.7 mmol/L (3.6-5.0)
== END ==
LOC: OD 11:39
PROVIDERS: ATTEND Internal Medicine Critical Care Medicine
DX: Q25.40 Congenital malformation of aorta unspecified (principal); M06.9 Rheumatoid arthritis, unspecified; M32.9 Systemic lupus erythematosus, unspecified; J45.909 Unspecified asthma, uncomplicated; R91.1 Solitary pulmonary nodule; K21.9 Gastro-esophageal reflux disease without esophagitis; J43.9 Emphysema, unspecified
CPT/HCPCS: 36415; 80048

== ENCOUNTER → 2020-04-04 | Outpatient (CLI) | payer MEDICARE, OTHER ==
--- NOTE | 2020-04-04 14:19 | RADIOLOGY REPORT (SQ) ---
EXAM DESCRIPTION: VENOUS UNILATERAL LOWER IMAGES COMPLETED DATE/TIME: 04/04/2020 2:10 pm REASON FOR STUDY: LLE SWELLING S82.035A NONDISPLACED TRANSVERSE FRACTURE OF LEFT PATELLA, I R60.9 EDEMA, UNSPECIFIED COMPARISON: None. TECHNIQUE: Dynamic and static carranza scale and color images acquired of the left leg venous system. Se lected spectral images acquired with additional compression and augmentation maneuvers. The contralat eral common femoral vein and saphenofemoral junction were also imaged. Images stored on PACS. LIMITATIONS: None. FINDINGS: COMMON FEMORAL: Normal phasicity, compression and augmentation. No visualized echogenic ma terial on carranza scale. No defects on color images. FEMORAL: Normal compression and augmentation. No visualized echogenic material on carranza scale. No defe cts on color images. POPLITEAL: Normal compression, augmentation. No visualized echogenic material on carranza scale. No defec ts on color images. CALF VESSELS: Normal compression, augmentation. No visualized echogenic material on carranza scale. No de fects on color images. GSV and SSV: Normal compression, augmentation. No visualized echogenic material on carranza scale. No def ects on color images. ANY DEEP VENOUS INSUFFICIENCY: Not evaluated. ANY EVIDENCE OF POPLITEAL CYST: No. OTHER: No other significant finding. CONTRALATERAL COMMON FEMORAL VEIN AND SAPHENOFEMORAL JUNCTION: Normal phasicity, compression and augmentation. No visualized echogenic material on carranza scale. No de fects on color images. IMPRESSION: NO EVIDENCE DVT OR SVT IN THE LEFT LEG. TECHNICAL DOCUMENTATION: JOB ID: [id number] 2010 [employer]- All Rights Reserved Reading location - IP/workstation name: [email or web address]
== END ==
LOC: SP 12:42
PROVIDERS: ATTEND Orthopaedic Surgery
DX: R60.0 Localized edema (principal)
CPT/HCPCS: 93971

== ENCOUNTER → 2020-05-23 | Outpatient (CLI) | payer MEDICARE, OTHER ==
--- NOTE | 2020-05-23 14:26 | ER [facility] ASSESSMENT REPORT ---
Intake - In the Last 14 days Have you traveled outside [place]?: No Have you been in close contact with someone CONFIRMED: No Worked in Healthcare?: No - Symptoms Subjective Fever(Alva feverish): No Chills: Yes Muscule Aches: Yes Runny Nose: Yes Sore Throat: Yes Cough (New or worsening chronic cough): Yes Shortness of breath: Yes Nausea or Vomiting: No Headache: Yes Abdominal Pain: Yes Diarrhea(3 or more loose stools in last 24 hours): Yes - Do you have any of the following Chronic lung disease: Asthma or emphysema or COPD: Yes Chronic Lung Disease Comment: asthma, copd Cystic Fibrosis: No Diabetes: No High Blood Pressure: Yes Cardiovascular Disease: Yes Chronic Kidney Disease: No Chronic Liver Disease: No Chronic blood disorder like Sickle Cell Disease: No Weak immune system due to disease or medication: No Neurologic condition that limits movement: No Developmental delay - Moderate to Severe: No Recent (within past 2 weeks) or current : No Morbid Obesity (>100 pounds over ideal weight): No - Objective Temperature: 98.2 F Pulse Rate: 53 Respiratory Rate: 18 Blood Pressure: 170/73 O2 Sat by Pulse Oximetry: 95 Objective: Given above, testing performed: If Testing Performed: Test Specimen Type Sent to General - General Information source: Patient Notes: Patient presents to the [facility] for screening for the coronavirus. Patient has a history of high blood pressure, COPD, asthma and lupus. Patient reports having symptoms for the past 4 days including chills, runny nose sore throat cough shortness of breath headache and abdominal pain. - Related Data Allergies/Adverse Reactions: Penicillins Adverse Reaction (Verified 01/26/18 14:07) Lethargy Past Medical History - General Information source: Patient - Social History Smoking Status: Former Smoker Family History: None - Medical History Medical History: Other - Lupus - Past Medical History Cardiac Medical History: Reports: Hx Heart Attack - MAYBE WITH PNUEMONIA, Hx Hypercholesterolemia - takes med, Hx Hypertension - MEDS Pulmonary Medical History: Reports: Hx Asthma - INHALERS, Hx Bronchitis - yearly, Hx COPD, Hx Pneumonia - several times, Hx Sleep Apnea - uses CPAP Denies: Hx Respiratory Failure, Hx Tuberculosis Neurological Medical History: Reports: Hx Migraine. Denies: Hx Cerebrovascular Accident, Hx Seizures, Hx Parkinson's Disease Endocrine Medical History: Denies: Hx Graves' Disease, Hx Hyperthyroidism, Hx Hypothyroidism Renal/ Medical History: Reports: Hx Ovarian Cysts. Denies: Hx End Stage Renal Disease, Hx Kidney Stones, Hx Peritoneal Dialysis, Hx Pelvic Inflammatory Disease Malignancy Medical History: Reports: Hx Breast Cancer - left breast/Mastectomy. Denies: Hx Cervical Cancer, Hx Leukemia, Hx Lung Cancer, Hx Ovarian Cancer GI Medical History: Reports: Hx Gastroesophageal Reflux Disease - takes med, Hx Irritable Bowel, Hx Ulcer - YEARS AGO/IBS. Denies: Hx Crohn's Disease, Hx H epatitis, Hx Hiatal Hernia, Hx Liver Failure, Hx Pancreatitis Musculoskeletal Medical History: Reports Hx Arthritis, Reports Hx Fibromyalgia, Denies Hx Multiple Sclerosis, Denies Hx Muscular Dystrophy, Reports Hx Systemic Lupus Erythematosus - dx 1999 Psychiatric Medical History: Reports: Hx Depression - mild Denies: Hx Bipolar Disorder, Hx Dementia, Hx Post Traumatic Stress Disorder, Hx Schizophrenia Traumatic Medical History: Reports: Hx Fractures - left shoulder, right elbow x2, left wrist, toes Past Surgical History: Reports: Hx Appendectomy, Hx Cholecystectomy, Hx Hysterectomy, Hx Mastectomy - OK TO USE LEFT ARM, Hx Orthopedic Surgery - Recent right shoulder surgery, Hx Tonsillectomy, Hx Tubal Ligation Physical Exam - Notes Notes: The patient was evaluated during the global Covid 19 pandemic, and that diagnosis was suspected/considered upon their initial presentation. Their evaluation, treatment and testing was consistent with current guidelines for patients who present with complaints or symptoms that may be related to Covid 19. Full physical exam could not be performed due to covid 19 isolation protocols. Constitutional: Nontoxic appearance, no acute distress Eyes: Nonicteric, extraocular movements intact, sclera clear Cardiovascular: Heart rate and rhythm regular, no JVD Respiratory: Occasional cough with rhonchi and scattered wheezing, nonlabored breathing, no use of accessory muscles, no tachypnea Gastrointestinal: Abdomen not distended Muculoskeletal: Moves all extremities well Skin: Normal color Neuro: Awake alert oriented, normal speech Psych: Normal mood and affect Diagnostic Results Laboratory Results: Patient presents with upper respiratory symptoms worrisome for possible Covid 19. Patient appears suitable for discharge as vital signs are stable and patient is nontoxic in appearance. Patient does have scattered wheezing although has an underlying history of COPD and asthma. Patient does have inhalers at home to treat her symptoms. Good return precautions have been discussed with patient, patient verbalized understanding and is agreeable with discharge plan of care at this time. Patient Education/Counseling Counseling/Education: Patient was provided with discharge information including: As a person under investigation for Covid 19, the [place] department of Health and Human Services, division of public health advises you to adhere to the following guidance until your test results are reported to you. If your test result is positive, you will receive additional information from your provider and your local health department at that time. Remain at home until you are cleared by the health provider or public health authorities. Keep a log of visitors to your home, notify any visitors to your home of your isolation status. If you plan to move to a new address or leave the [facility], notify the local health department in your County. Call your doctor or seek care if you have an urgent medical need. Before seeking medical care, call ahead to get instructions from the provider before arriving at the medical office clinic or hospital. Notify them that you are being tested for the virus that causes Covid 19 so that arrangements can be made, as necessary, to prevent transmission to others in the healthcare setting. Next, notify the local health department in your county. If a medical emergency arises and you need to call 911, inform the first responders that you are being tested for the virus that causes Covid 19. Next, notify the local health department in your county. [facility] Discharge - Discharge Clinical Impression: Encounter for screening laboratory testing for COVID-19 virus Condition: Stable Disposition: Home; Selfcare
[2020-05-23 14:28] VITALS: BP 170/73
[2020-05-23 15:54] LABS: A TYPE INFLUENZA AG NEGATIVE (NEGATIVE); B INFLUENZA AG NEGATIVE (NEGATIVE)
== END ==
LOC: RDC 13:47
PROVIDERS: ATTEND Nurse Practitioner Family
DX: U07.1 COVID-19 (principal); R68.83 Chills (without fever); R06.02 Shortness of breath; R05 Cough; J02.9 Acute pharyngitis, unspecified; M79.10 Myalgia, unspecified site; R09.89 Other specified symptoms and signs involving the circulatory and respiratory systems; R51.9 Headache, unspecified; R10.9 Unspecified abdominal pain; R19.7 Diarrhea, unspecified; J44.9 Chronic obstructive pulmonary disease, unspecified; J45.909 Unspecified asthma, uncomplicated; I10 Essential (primary) hypertension; E78.00 Pure hypercholesterolemia, unspecified; M32.9 Systemic lupus erythematosus, unspecified; K21.9 Gastro-esophageal reflux disease without esophagitis; G47.30 Sleep apnea, unspecified; I25.2 Old myocardial infarction; Z88.0 Allergy status to penicillin; Z87.891 Personal history of nicotine dependence; Z87.01 Personal history of pneumonia (recurrent); Z85.3 Personal history of malignant neoplasm of breast
CPT/HCPCS: 87070; 87880; 87804; 99201; U0003; G0463; C9803; 87635; 99211